=== PATIENT | female | born 1945 | race Caucasian/White ===

== ENCOUNTER 2017-08-18 10:30 | Outpatient (RCR) | payer MEDICARE, OTHER, SELFPAY ==
--- NOTE | 2017-08-11 11:10 | PT.OIE ---
Current Diagnoses Other bursitis of knee, unspecified knee (08/10/17) Provider Visit Care Team Role Provider Type Santhosh Caraballo PA-C Attending Provider Advanced Practioner Clinician Specialty: Orthopedic Surgery Address: [address] [place] [address], [id number] Email: [email or web address] Physical Therapy Initial Evaluation PT-OP-A Visit Information Start: 08/11/17 10:45 Freq: Status: Active Protocol: Document 08/10/17 10:00 [facility] (Rec: 08/11/17 11:10 [facility] [email or web address]) Out-Patient Physical Therapy Visit Information Visit Information Visit Type Initial Evaluation Visit Start Time 10:00 Visit Stop Time 10:55 Total Visit Minutes 55 Visit Number 1 Number of AUTOMOTIVE MACHINIST APPRENTICE Visits 0 Evaluation Information Evaluation Date 08/10/17 PT-OP-B Current Condition Start: 08/11/17 10:45 Freq: Status: Active Protocol: Document 08/10/17 10:00 [facility] (Rec: 08/11/17 11:10 [facility] [email or web address]) Current Condition History of Current Condition Onset Date R knee pain began 1 week ago Current Complaints pain in the right knee limiting walking and worse with twisting activities History of Current Condition Nikki reports she went to get out of her car in [place] a week ago and when she stepped down her Right knee twisted and clicked. She has had pain and clicking since that time. Nikki also reports she feels as if she has no strength in her legs making it difficult to get up from a chair or out of a car. She has extreme difficulty climbing stairs or walking 2 blocks Prior Treatments and Tests Xrays and been taken and per patient report are negative Treatment Goals Patient/Caregiver Goals Nikki's goals include improving knee strength and calming down her pain so that she can travel to [place] August 24 Prior Functional Status Baseline Function- ADL's Independent Baseline Function- Mobility Independent Current Functional Impairments (Reported) Functional Limitations- Mobility/Gait impairments with gait greater than 2 blocks and unable to climb stairs or stand for over a hour PT-OP-F Manual Assessment Start: 08/11/17 10:45 Freq: Status: Active Protocol: Document 08/10/17 10:00 [facility] (Rec: 08/11/17 11:10 [facility] [email or web address]) Manual Assessments Soft Tissue Assessment Soft Tissue Mobility Assessment tenderness to palpation at the distal MCL attachment of the right knee. Pain is distal to the joint line Joint Mobility Assessment Joint Mobility Assessment Joint mobility is WFL PT-OP-K Range of Motion Start: 08/11/17 10:45 Freq: Status: Active Protocol: Document 08/10/17 10:00 [facility] (Rec: 08/11/17 11:10 [facility] PTCOW) Knee Goniometric Range of Motion Knee Measured in Degrees Right Knee ROM WFL Yes Patient Position Sitting Flexion Active (degrees) 125 Extension Active (degrees) 0 PT-OP-M Strength Start: 08/11/17 10:45 Freq: Status: Active Protocol: Document 08/10/17 10:00 [facility] (Rec: 08/11/17 11:10 [facility] PTCOW) Knee Strength Knee Manual Muscle Testing Left Flexion (S2) 4 Good Extension (L3) 4 Good Right Flexion (S2) 3 Fair Comments quad sets are difficult on the right side PT-OP-Q Treatments Start: 08/11/17 10:45 Freq: Status: Active Protocol: Document 08/10/17 10:00 [facility] (Rec: 08/11/17 11:10 [facility] PTCOW) Cardio Equipment Recumbent Elliptical ([employer]) Duration (Minutes) 5 Resistance level 1 Other pt tolerated well Therapeutic Exercises Supine Exercises 2 Supine Exercise Name supine calf and hamstring stretch with strap Side right Reps/Minutes hold 1-2 minutes and add ankle pumps 1 Supine Exercise Name quad sqeeze Side right Reps/Minutes hold 5 seconds 2 sets of 10 reps per day Manual Therapy Treatment Soft Tissue Mobilization 1 Mobilization Type Cross-Friction Intensity/Depth Moderate Body Position Supine Comments TFM to the distal MCL attachment PT-OP-R Modalities Start: 08/11/17 10:45 Freq: Status: Active Protocol: Document 08/10/17 10:00 [facility] (Rec: 08/11/17 11:10 [facility] PTCOW) Hot Pack/Cold Pack Treatment Cold Pack Patient Position Hooklying Patient Tolerance Good Ultrasound Therapy Treatment Right Medial Distal Knee Patient Position Supine Coupling Medium Ultrasound Gel Mode Setting Continuous Intensity Setting (w/cm2) 1.5 Patient Tolerance Good Comment Treatment Comment US at MCl attachment PT-OP-T Assessment and Plan Start: 08/11/17 10:45 Freq: Status: Active Protocol: Document 08/10/17 10:00 [facility] (Rec: 08/11/17 11:10 [facility] [email or web address]) Physical Therapy Assessment Rehab Potential Rehabilitation Potential Excellent Evaluation Complexity Number of Personal Factors/Comorbidities 0 Number of Body Systems Impaired 1-2 Clinical Presentation at Evaluation Stable Impairments Impairments Activity Tolerance Balance Functional Activities Functional Mobility Gait Pain Strength Goals Three Impairment Decreased strength of B LE and difficulty with sit-stand transfers Short Term Goal (STG) Nikki is educated in LE strengthening including functional strengthening to improve transfers and mobility and she is independent with a home exercise program STG Duration 3 weeks Two Impairment Tenderness to palpation at the distal MCL attachement Short Term Goal (STG) Decrease tenderness to palpation with TFM and ice/ heat STG Duration 3 weeks due to the patient leaving for [place] the end of July One Impairment knee pain at the medial joint line limiting walking and standing Short Term Goal (STG) With manual therapy, modalities and exercise Nikki notes decreased pain at the distal MCL and has an improved tolerance for walking STG Duration 3 weeks due to the patient leaving for [place] the end of July Assessment Summary Assessment Nikki presents to physical therapy today with symptoms of right sided MCL sprain following stepping out of her car and twisting her knee. Her pain is below the joint line and her ROM of the right knee is WNL. There is swelling behind her knee. SHe has a generalized weakness in both knees but the right side is affected more with pain. Nikki is leaving for [place] August 24 and her goal is to be able to walk there. I started her today with Ultrasound, TFM, ice, quad sets and hamstring/calf stretch and bike. She tolerated this treatment well. Physical Therapy Plan Frequency and Duration Frequency of Treatment 2x/Week Duration of Treatment 4 weeks Plan of Care Start Date 08/10/17 Plan of Care End Date 09/07/17 Therapeutic Interventions Therapeutic Interventions Home Exercise Program Manual Therapy Neuromuscular Re-education Self-Care/Home Management Soft Tissue Mobilization Taping Therapeutic Exercises Modalities Cold Pack/Ice Massage Traction- Mechanical Provider Signature Date
--- NOTE | 2017-08-16 08:58 | PT.OTN ---
Current Diagnoses Other bursitis of knee, unspecified knee (08/15/17) Physical Therapy Treatment Note PT-OP-A Visit Information Start: 08/11/17 10:45 Freq: Status: Active Protocol: Document 08/15/17 10:48 LRN (Rec: 08/15/17 16:47 LRN [id number]) Out-Patient Physical Therapy Visit Information Visit Information Visit Type Treatment Note Visit Start Time 10:48 Visit Stop Time 11:25 Total Visit Minutes 37 Visit Number 2 Number of DIAL EQUIPMENT ENGINEER Visits 0 Evaluation Information Evaluation Date 08/10/17 PT-OP-B Current Condition Start: 08/11/17 10:45 Freq: Status: Active Protocol: Document 08/10/17 10:00 [facility] (Rec: 08/11/17 11:10 [facility] [email or web address]) Current Condition History of Current Condition Onset Date R knee pain began 1 week ago Current Complaints pain in the right knee limiting walking and worse with twisting activities History of Current Condition Nikki reports she went to get out of her car in [place] a week ago and when she stepped down her Right knee twisted and clicked. She has had pain and clicking since that time. Nikki also reports she feels as if she has no strength in her legs making it difficult to get up from a chair or out of a car. She has extreme difficulty climbing stairs or walking 2 blocks Prior Treatments and Tests Xrays and been taken and per patient report are negative Treatment Goals Patient/Caregiver Goals Nikki's goals include improving knee strength and calming down her pain so that she can travel to [place] August 24 Prior Functional Status Baseline Function- ADL's Independent Baseline Function- Mobility Independent Current Functional Impairments (Reported) Functional Limitations- Mobility/Gait impairments with gait greater than 2 blocks and unable to climb stairs or stand for over a hour PT-OP-C Subjective Start: 08/11/17 10:45 Freq: Status: Active Protocol: Document 08/15/17 10:48 LRN (Rec: 08/15/17 11:24 LRN [id number]) OP-PT Subjective Patient Comments Patient Comments States she has been icing behind the knee and heating on the medial side of the knee and thinks the knee is a little better. PT-OP-F Manual Assessment Start: 08/11/17 10:45 Freq: Status: Active Protocol: Document 08/10/17 10:00 [facility] (Rec: 08/11/17 11:10 [facility] [email or web address]) Manual Assessments Soft Tissue Assessment Soft Tissue Mobility Assessment tenderness to palpation at the distal MCL attachment of the right knee. Pain is distal to the joint line Joint Mobility Assessment Joint Mobility Assessment Joint mobility is WFL PT-OP-K Range of Motion Start: 08/11/17 10:45 Freq: Status: Active Protocol: Document 08/10/17 10:00 AM[facility] (Rec: 08/11/17 11:10 [facility] [email or web address]) Knee Goniometric Range of Motion Knee Measured in Degrees Right Knee ROM WFL Yes Patient Position Sitting Flexion Active (degrees) 125 Extension Active (degrees) 0 PT-OP-M Strength Start: 08/11/17 10:45 Freq: Status: Active Protocol: Document 08/10/17 10:00 AM[facility] (Rec: 08/11/17 11:10 [facility] PTCOW) Knee Strength Knee Manual Muscle Testing Left Flexion (S2) 4 Good Extension (L3) 4 Good Right Flexion (S2) 3 Fair Comments quad sets are difficult on the right side PT-OP-Q Treatments Start: 08/11/17 10:45 Freq: Status: Active Protocol: Document 08/15/17 10:48 LRN (Rec: 08/15/17 11:24 LRN [id number]) Cardio Equipment Recumbent Elliptical ([employer]) Duration (Minutes) 8 Resistance level 1 Other pt tolerated well Therapeutic Exercises Supine Exercises 3 Supine Exercise Name SLR Side right Reps/Minutes 15x 1 Supine Exercise Name quad sqeeze Side right Reps/Minutes hold 5 seconds 15x, & 1 sets of 10 reps Sidelying Exercises 1 Sidelying Exercise Name R leg lift Reps/Minutes 10 Standing Exercises 2 Standing Exercise Name Soleus stretch Reps/Minutes 1x60 sec Comments Extra time needed for proper positioing 1 Standing Exercise Name Gastroc stretch Reps/Minutes 1x 60 sec stretch Comments Pt required extra time for proper positioning for stretch Manual Therapy Treatment Soft Tissue Mobilization 1 Mobilization Type Cross-Friction Intensity/Depth Moderate Body Position Supine Comments TFM to the distal MCL attachment PT-OP-R Modalities Start: 08/11/17 10:45 Freq: Status: Active Protocol: Document 08/15/17 10:48 LRN (Rec: 08/15/17 11:24 LRN [id number]) Hot Pack/Cold Pack Treatment Cold Pack Patient Position Hooklying Patient Tolerance Good Ultrasound Therapy Treatment Right Medial Distal Knee Patient Position Supine Coupling Medium Ultrasound Gel Mode Setting Continuous Intensity Setting (w/cm2) 1.0 Patient Tolerance Good PT-OP-T Assessment and Plan Start: 08/11/17 10:45 Freq: Status: Active Protocol: Document 08/15/17 10:48 LRN (Rec: 08/15/17 11:24 LRN [id number]) Physical Therapy Assessment Impairments Impairments Activity Tolerance Balance Functional Activities Functional Mobility Gait Pain Strength Assessment Summary Assessment Pt complains of clicking in the knee; possible mensicus injury. Good tolerance to treatment. Physical Therapy Plan Frequency and Duration Frequency of Treatment 2x/Week Next Visit Focus/Plan Next Visit Plan Continue per plan of care. Please Sign and Return: I have reviewed this Plan of Care and certify that the skilled therapy services above are required to meet the patient???s needs. Physician Signature Date Printed Name and Credentials Clinical Instructor Signature Printed Name and Credentials
--- NOTE | 2017-08-16 12:45 | PT.OTN ---
Addendum entered and electronically signed by Kesha Santillan, PT 08/16/17 15:26: Pt seen 08/15/17, note completed 08/16/17. Original Note: Current Diagnoses Other bursitis of knee, unspecified knee (08/15/17) Physical Therapy Treatment Note PT-OP-A Visit Information Start: 08/11/17 10:45 Freq: Status: Active Protocol: Document 08/15/17 10:48 LRN (Rec: 08/15/17 16:47 LRN [id number]) Out-Patient Physical Therapy Visit Information Visit Information Visit Type Treatment Note Visit Start Time 10:48 Visit Stop Time 11:25 Total Visit Minutes 37 Visit Number 2 Number of BARROW WORKER HELPER Visits 0 Evaluation Information Evaluation Date 08/10/17 PT-OP-B Current Condition Start: 08/11/17 10:45 Freq: Status: Active Protocol: Document 08/10/17 10:00 [facility] (Rec: 08/11/17 11:10 [facility] [email or web address]) Current Condition History of Current Condition Onset Date R knee pain began 1 week ago Current Complaints pain in the right knee limiting walking and worse with twisting activities History of Current Condition Nikki reports she went to get out of her car in [place] a week ago and when she stepped down her Right knee twisted and clicked. She has had pain and clicking since that time. Nikki also reports she feels as if she has no strength in her legs making it difficult to get up from a chair or out of a car. She has extreme difficulty climbing stairs or walking 2 blocks Prior Treatments and Tests Xrays and been taken and per patient report are negative Treatment Goals Patient/Caregiver Goals Nikki's goals include improving knee strength and calming down her pain so that she can travel to [place] August 24 Prior Functional Status Baseline Function- ADL's Independent Baseline Function- Mobility Independent Current Functional Impairments (Reported) Functional Limitations- Mobility/Gait impairments with gait greater than 2 blocks and unable to climb stairs or stand for over a hour PT-OP-C Subjective Start: 08/11/17 10:45 Freq: Status: Active Protocol: Document 08/15/17 10:48 LRN (Rec: 08/15/17 11:24 LRN [id number]) OP-PT Subjective Patient Comments Patient Comments States she has been icing behind the knee and heating on the medial side of the knee and thinks the knee is a little better. PT-OP-F Manual Assessment Start: 08/11/17 10:45 Freq: Status: Active Protocol: Document 08/10/17 10:00 [facility] (Rec: 08/11/17 11:10 [facility] [email or web address]) Manual Assessments Soft Tissue Assessment Soft Tissue Mobility Assessment tenderness to palpation at the distal MCL attachment of the right knee. Pain is distal to the joint line Joint Mobility Assessment Joint Mobility Assessment Joint mobility is WFL PT-OP-K Range of Motion Start: 08/11/17 10:45 Freq: Status: Active Protocol: Document 08/10/17 10:00 AMH (Rec: 08/11/17 11:10 [facility] [email or web address]) Knee Goniometric Range of Motion Knee Measured in Degrees Right Knee ROM WFL Yes Patient Position Sitting Flexion Active (degrees) 125 Extension Active (degrees) 0 PT-OP-M Strength Start: 08/11/17 10:45 Freq: Status: Active Protocol: Document 08/10/17 10:00 AMH (Rec: 08/11/17 11:10 [facility] [email or web address]) Knee Strength Knee Manual Muscle Testing Left Flexion (S2) 4 Good Extension (L3) 4 Good Right Flexion (S2) 3 Fair Comments quad sets are difficult on the right side PT-OP-Q Treatments Start: 08/11/17 10:45 Freq: Status: Active Protocol: Document 08/15/17 10:48 LRN (Rec: 08/15/17 11:24 LRN [id number]) Cardio Equipment Recumbent Elliptical ([employer]) Duration (Minutes) 8 Resistance level 1 Other pt tolerated well Therapeutic Exercises Supine Exercises 3 Supine Exercise Name SLR Side right Reps/Minutes 15x 1 Supine Exercise Name quad sqeeze Side right Reps/Minutes hold 5 seconds 15x, & 1 sets of 10 reps Sidelying Exercises 1 Sidelying Exercise Name R leg lift Reps/Minutes 10 Standing Exercises 2 Standing Exercise Name Soleus stretch Reps/Minutes 1x60 sec Comments Extra time needed for proper positioning 1 Standing Exercise Name Gastroc stretch Reps/Minutes 1x 60 sec stretch Comments Pt required extra time for proper positioning for stretch Manual Therapy Treatment Soft Tissue Mobilization 1 Mobilization Type Cross-Friction Intensity/Depth Moderate Body Position Supine Comments TFM to the distal MCL attachment PT-OP-R Modalities Start: 08/11/17 10:45 Freq: Status: Active Protocol: Document 08/15/17 10:48 LRN (Rec: 08/15/17 11:24 LRN [id number]) Hot Pack/Cold Pack Treatment Cold Pack Patient Position Hooklying Patient Tolerance Good Ultrasound Therapy Treatment Right Medial Distal Knee Patient Position Supine Coupling Medium Ultrasound Gel Mode Setting Continuous Intensity Setting (w/cm2) 1.0 Patient Tolerance Good PT-OP-T Assessment and Plan Start: 08/11/17 10:45 Freq: Status: Active Protocol: Document 08/15/17 10:48 LRN (Rec: 08/15/17 11:24 LRN [id number]) Physical Therapy Assessment Impairments Impairments Activity Tolerance Balance Functional Activities Functional Mobility Gait Pain Strength Assessment Summary Assessment Pt complains of clicking in the knee; possible meniscus injury. Good tolerance to treatment. Physical Therapy Plan Frequency and Duration Frequency of Treatment 2x/Week Duration of Treatment 4 weeks Plan of Care Start Date 08/10/17 Plan of Care End Date 09/07/17 Therapeutic Interventions Therapeutic Interventions Home Exercise Program Manual Therapy Neuromuscular Re-education Self-Care/Home Management Soft Tissue Mobilization Taping Therapeutic Exercises Modalities Cold Pack/Ice Massage Traction- Mechanical Next Visit Focus/Plan Next Visit Plan Continue per plan of care. Please Sign and Return: I have reviewed this Plan of Care and certify that the skilled therapy services above are required to meet the patient???s needs. Physician Signature Date Printed Name and Credentials Clinical Instructor Signature Printed Name and Credentials
--- NOTE | 2017-08-16 15:25 | PT.OTN ---
Current Diagnoses Other bursitis of knee, unspecified knee (08/15/17) Physical Therapy Treatment Note PT-OP-A Visit Information Start: 08/11/17 10:45 Freq: Status: Active Protocol: Document 08/15/17 10:48 LRN (Rec: 08/15/17 16:47 LRN [id number]) Out-Patient Physical Therapy Visit Information Visit Information Visit Type Treatment Note Visit Start Time 10:48 Visit Stop Time 11:25 Total Visit Minutes 37 Visit Number 2 Number of NURSE SCHOOL Visits 0 Evaluation Information Evaluation Date 08/10/17 PT-OP-B Current Condition Start: 08/11/17 10:45 Freq: Status: Active Protocol: Document 08/10/17 10:00 AMH (Rec: 08/11/17 11:10 [facility] [email or web address]) Current Condition History of Current Condition Onset Date R knee pain began 1 week ago Current Complaints pain in the right knee limiting walking and worse with twisting activities History of Current Condition Nikki reports she went to get out of her car in [place] a week ago and when she stepped down her Right knee twisted and clicked. She has had pain and clicking since that time. Nikki also reports she feels as if she has no strength in her legs making it difficult to get up from a chair or out of a car. She has extreme difficulty climbing stairs or walking 2 blocks Prior Treatments and Tests Xrays and been taken and per patient report are negative Treatment Goals Patient/Caregiver Goals Nikki's goals include improving knee strength and calming down her pain so that she can travel to [place] August 24 Prior Functional Status Baseline Function- ADL's Independent Baseline Function- Mobility Independent Current Functional Impairments (Reported) Functional Limitations- Mobility/Gait impairments with gait greater than 2 blocks and unable to climb stairs or stand for over a hour PT-OP-C Subjective Start: 08/11/17 10:45 Freq: Status: Active Protocol: Document 08/15/17 10:48 LRN (Rec: 08/15/17 11:24 LRN [id number]) OP-PT Subjective Patient Comments Patient Comments States she has been icing behind the knee and heating on the medial side of the knee and thinks the knee is a little better. PT-OP-F Manual Assessment Start: 08/11/17 10:45 Freq: Status: Active Protocol: Document 08/10/17 10:00 [facility]H (Rec: 08/11/17 11:10 [facility] [email or web address]) Manual Assessments Soft Tissue Assessment Soft Tissue Mobility Assessment tenderness to palpation at the distal MCL attachment of the right knee. Pain is distal to the joint line Joint Mobility Assessment Joint Mobility Assessment Joint mobility is WFL PT-OP-K Range of Motion Start: 08/11/17 10:45 Freq: Status: Active Protocol: Document 08/10/17 10:00 AMH (Rec: 08/11/17 11:10 [facility] [email or web address]) Knee Goniometric Range of Motion Knee Measured in Degrees Right Knee ROM WFL Yes Patient Position Sitting Flexion Active (degrees) 125 Extension Active (degrees) 0 PT-OP-M Strength Start: 08/11/17 10:45 Freq: Status: Active Protocol: Document 08/10/17 10:00 AMH (Rec: 08/11/17 11:10 [facility] [email or web address]) Knee Strength Knee Manual Muscle Testing Left Flexion (S2) 4 Good Extension (L3) 4 Good Right Flexion (S2) 3 Fair Comments quad sets are difficult on the right side PT-OP-Q Treatments Start: 08/11/17 10:45 Freq: Status: Active Protocol: Document 08/15/17 10:48 LRN (Rec: 08/15/17 11:24 LRN [id number]) Cardio Equipment Recumbent Elliptical ([employer]) Duration (Minutes) 8 Resistance level 1 Other pt tolerated well Therapeutic Exercises Supine Exercises 3 Supine Exercise Name SLR Side right Reps/Minutes 15x 1 Supine Exercise Name quad sqeeze Side right Reps/Minutes hold 5 seconds 15x, & 1 sets of 10 reps Sidelying Exercises 1 Sidelying Exercise Name R leg lift Reps/Minutes 10 Standing Exercises 2 Standing Exercise Name Soleus stretch Reps/Minutes 1x60 sec Comments Extra time needed for proper positioing 1 Standing Exercise Name Gastroc stretch Reps/Minutes 1x 60 sec stretch Comments Pt required extra time for proper positioning for stretch Manual Therapy Treatment Soft Tissue Mobilization 1 Mobilization Type Cross-Friction Intensity/Depth Moderate Body Position Supine Comments TFM to the distal MCL attachment PT-OP-R Modalities Start: 08/11/17 10:45 Freq: Status: Active Protocol: Document 08/15/17 10:48 LRN (Rec: 08/15/17 11:24 LRN [id number]) Hot Pack/Cold Pack Treatment Cold Pack Patient Position Hooklying Patient Tolerance Good Ultrasound Therapy Treatment Right Medial Distal Knee Patient Position Supine Coupling Medium Ultrasound Gel Mode Setting Continuous Intensity Setting (w/cm2) 1.0 Patient Tolerance Good PT-OP-T Assessment and Plan Start: 08/11/17 10:45 Freq: Status: Active Protocol: Document 08/15/17 10:48 LRN (Rec: 08/15/17 11:24 LRN [id number]) Physical Therapy Assessment Impairments Impairments Activity Tolerance Balance Functional Activities Functional Mobility Gait Pain Strength Assessment Summary Assessment Pt complains of clicking in the knee; possible mensicus injury. Good tolerance to treatment. Physical Therapy Plan Frequency and Duration Frequency of Treatment 2x/Week Duration of Treatment 4 weeks Plan of Care Start Date 08/10/17 Plan of Care End Date 09/07/17 Therapeutic Interventions Therapeutic Interventions Home Exercise Program Manual Therapy Neuromuscular Re-education Self-Care/Home Management Soft Tissue Mobilization Taping Therapeutic Exercises Modalities Cold Pack/Ice Massage Traction- Mechanical Next Visit Focus/Plan Next Visit Plan Continue per plan of care for MCL strain.
--- NOTE | 2017-08-18 12:02 | PT.OTN ---
Current Diagnoses Other bursitis of knee, unspecified knee (08/18/17) Physical Therapy Treatment Note PT-OP-A Visit Information Start: 08/11/17 10:45 Freq: Status: Active Protocol: Document 08/15/17 10:48 LRN (Rec: 08/15/17 16:47 LRN [id number]) Out-Patient Physical Therapy Visit Information Visit Information Visit Type Treatment Note Visit Start Time 10:48 Visit Stop Time 11:25 Total Visit Minutes 37 Visit Number 2 Number of LEAD C DEVELOPER Visits 0 Evaluation Information Evaluation Date 08/10/17 PT-OP-B Current Condition Start: 08/11/17 10:45 Freq: Status: Active Protocol: Document 08/10/17 10:00 [facility] (Rec: 08/11/17 11:10 [facility] [email or web address]) Current Condition History of Current Condition Onset Date R knee pain began 1 week ago Current Complaints pain in the right knee limiting walking and worse with twisting activities History of Current Condition Nikki reports she went to get out of her car in [place] a week ago and when she stepped down her Right knee twisted and clicked. She has had pain and clicking since that time. Nikki also reports she feels as if she has no strength in her legs making it difficult to get up from a chair or out of a car. She has extreme difficulty climbing stairs or walking 2 blocks Prior Treatments and Tests Xrays and been taken and per patient report are negative Treatment Goals Patient/Caregiver Goals Nikki's goals include improving knee strength and calming down her pain so that she can travel to [place] August 24 Prior Functional Status Baseline Function- ADL's Independent Baseline Function- Mobility Independent Current Functional Impairments (Reported) Functional Limitations- Mobility/Gait impairments with gait greater than 2 blocks and unable to climb stairs or stand for over a hour PT-OP-C Subjective Start: 08/11/17 10:45 Freq: Status: Active Protocol: Document 08/18/17 10:30 [facility] (Rec: 08/18/17 12:02 [facility] [email or web address]) OP-PT Subjective Patient Comments Patient Comments Nikki feels her knee is a little better. She notes pain with any twisting PT-OP-F Manual Assessment Start: 08/11/17 10:45 Freq: Status: Active Protocol: Document 08/10/17 10:00 [facility] (Rec: 08/11/17 11:10 [facility] [email or web address]) Manual Assessments Soft Tissue Assessment Soft Tissue Mobility Assessment tenderness to palpation at the distal MCL attachment of the right knee. Pain is distal to the joint line Joint Mobility Assessment Joint Mobility Assessment Joint mobility is WFL PT-OP-K Range of Motion Start: 08/11/17 10:45 Freq: Status: Active Protocol: Document 08/10/17 10:00 [facility] (Rec: 08/11/17 11:10 [facility] [email or web address]) Knee Goniometric Range of Motion Knee Measured in Degrees Right Knee ROM WFL Yes Patient Position Sitting Flexion Active (degrees) 125 Extension Active (degrees) 0 PT-OP-M Strength Start: 08/11/17 10:45 Freq: Status: Active Protocol: Document 08/10/17 10:00 [facility] (Rec: 08/11/17 11:10 [facility] [email or web address]) Knee Strength Knee Manual Muscle Testing Left Flexion (S2) 4 Good Extension (L3) 4 Good Right Flexion (S2) 3 Fair Comments quad sets are difficult on the right side PT-OP-Q Treatments Start: 08/11/17 10:45 Freq: Status: Active Protocol: Document 08/18/17 10:30 [facility] (Rec: 08/18/17 12:02 [facility] [email or web address]) Cardio Equipment Recumbent Elliptical (BiodABL [place]) Duration (Minutes) 8 Resistance level 2 Other pt tolerated well Therapeutic Exercises Supine Exercises 3 Supine Exercise Name SLR Side right Reps/Minutes 15x 2 Supine Exercise Name supine calf and hamstring stretch with strap Side right Reps/Minutes hold 1-2 minutes and add ankle pumps 1 Supine Exercise Name quad sqeeze Side right Reps/Minutes hold 5 seconds 15x, & 1 sets of 10 reps Sidelying Exercises 1 Sidelying Exercise Name R leg lift Reps/Minutes 10 Standing Exercises 2 Standing Exercise Name Soleus stretch Reps/Minutes 1x60 sec Comments Extra time needed for proper positioing 1 Standing Exercise Name Gastroc stretch Reps/Minutes 1x 60 sec stretch Comments Pt required extra time for proper positioning for stretch Manual Therapy Treatment Soft Tissue Mobilization 1 Mobilization Type Cross-Friction Intensity/Depth Moderate Body Position Supine Comments TFM to the distal MCL attachment PT-OP-R Modalities Start: 08/11/17 10:45 Freq: Status: Active Protocol: Document 08/18/17 10:30 [facility] (Rec: 08/18/17 12:02 [facility] [email or web address]) Ultrasound Therapy Treatment Right Medial Distal Knee Patient Position Supine Coupling Medium Ultrasound Gel Mode Setting Continuous Intensity Setting (w/cm2) 1.0 Patient Tolerance Good PT-OP-T Assessment and Plan Start: 08/11/17 10:45 Freq: Status: Active Protocol: Document 08/18/17 10:30 [facility] (Rec: 08/18/17 12:02 [facility] [email or web address] Physical Therapy Assessment Assessment Summary Assessment good tolerance to tx, tenderness at the distal MCL Physical Therapy Plan Frequency and Duration Frequency of Treatment 2x/Week Duration of Treatment 4 weeks Plan of Care Start Date 08/10/17 Plan of Care End Date 09/07/17 Next Visit Focus/Plan Next Visit Plan the patient will only been seen one more time befor she goes to travel for a month Please Sign and Return: I have reviewed this Plan of Care and certify that the skilled therapy services above are required to meet the patient???s needs. Physician Signature Date Printed Name and Credentials Clinical Instructor Signature Printed Name and Credentials
--- NOTE | 2017-10-11 18:09 | PT.OPDS ---
Current Diagnoses Other bursitis of knee, unspecified knee (08/18/17) Provider Visit Care Team Role Provider Type Santhosh Caraballo PA-C Attending Provider Advanced Fleet Sales Manager Specialty: Orthopedic Surgery Address: [address] [place] [address], [place], [address] Email: [email or web address] Visit Number Visit Number 2 Discharge Summary PT-OP-B Current Condition Start: 08/11/17 10:45 Freq: Status: Active Protocol: Document 08/10/17 10:00 [facility] (Rec: 08/11/17 11:10 [facility] [email or web address]) Current Condition History of Current Condition Onset Date R knee pain began 1 week ago Current Complaints pain in the right knee limiting walking and worse with twisting activities History of Current Condition Nikki reports she went to get out of her car in [place] a week ago and when she stepped down her Right knee twisted and clicked. She has had pain and clicking since that time. Nikki also reports she feels as if she has no strength in her legs making it difficult to get up from a chair or out of a car. She has extreme difficulty climbing stairs or walking 2 blocks Prior Treatments and Tests Xrays and been taken and per patient report are negative Treatment Goals Patient/Caregiver Goals Nikki's goals include improving knee strength and calming down her pain so that she can travel to [place] August 24 Prior Functional Status Baseline Function- ADL's Independent Baseline Function- Mobility Independent Current Functional Impairments (Reported) Functional Limitations- Mobility/Gait impairments with gait greater than 2 blocks and unable to climb stairs or stand for over a hour PT-OP-C Subjective Start: 08/11/17 10:45 Freq: Status: Active Protocol: Document 08/18/17 10:30 [facility] (Rec: 08/18/17 12:02 [facility] [email or web address]) OP-PT Subjective Patient Comments Patient Comments Nikki feels her knee is a little better. She notes pain with any twisting PT-OP-F Manual Assessment Start: 08/11/17 10:45 Freq: Status: Active Protocol: Document 08/10/17 10:00 [facility] (Rec: 08/11/17 11:10 [facility] [email or web address]) Manual Assessments Soft Tissue Assessment Soft Tissue Mobility Assessment tenderness to palpation at the distal MCL attachment of the right knee. Pain is distal to the joint line Joint Mobility Assessment Joint Mobility Assessment Joint mobility is WFL PT-OP-K Range of Motion Start: 08/11/17 10:45 Freq: Status: Active Protocol: Document 08/10/17 10:00 AM[facility] (Rec: 08/11/17 11:10 AM[facility] [email or web address]) Knee Goniometric Range of Motion Knee Measured in Degrees Right Knee ROM WFL Yes Patient Position Sitting Flexion Active (degrees) 125 Extension Active (degrees) 0 PT-OP-M Strength Start: 08/11/17 10:45 Freq: Status: Active Protocol: Document 08/10/17 10:00 [facility] (Rec: 08/11/17 11:10 AM[facility] [email or web address]) Knee Strength Knee Manual Muscle Testing Left Flexion (S2) 4 Good Extension (L3) 4 Good Right Flexion (S2) 3 Fair Comments quad sets are difficult on the right side PT-OP-T Assessment and Plan Start: 08/11/17 10:45 Freq: Status: Active Protocol: Document 08/18/17 10:30 [facility] (Rec: 08/18/17 12:02 [facility] [email or web address]) Physical Therapy Assessment Assessment Summary Assessment good tolerance to tx, tenderness at the distal MCL Physical Therapy Plan Frequency and Duration Frequency of Treatment 2x/Week Duration of Treatment 4 weeks Plan of Care Start Date 08/10/17 Plan of Care End Date 09/07/17 Next Visit Focus/Plan Next Visit Plan the patient will only been seen one more time befor she goes to travel for a month
== END 2017-08-19 10:52 ==
LOC: PHYS 10:30
PROVIDERS: Visit Provider Physician Assistant
DX: M70.50 Other bursitis of knee, unspecified knee (principal)
CPT/HCPCS: 97035; 97110; 97140; 97161

== ENCOUNTER 2017-08-19 03:25 | Emergency (ER) | payer MEDICARE, OTHER, SELFPAY ==
--- NOTE | 2017-08-19 03:36 | DI.RAD.S_ITS ---
PROCEDURE: XR WRIST RT MIN 3V INDICATIONS: fall deformity TECHNIQUE: 3 views of the wrist were acquired. COMPARISON: None. FINDINGS: Bones: There is a transverse fracture in the distal radial shaft with 4 mm radial displacement of the distal fracture fragment. Ulnar styloid fracture of indeterminate chronicity is noted. Severe osteopenia. There is moderate triscaphe and first carpometacarpal joint degeneration. No suspicious bony lesions. Scaphoid view: Scaphoid appears intact. Soft tissues: No suspicious soft tissue calcifications. IMPRESSION: 1. Mildly displaced distal radial shaft fracture. 2. Ulnar styloid fracture of indeterminate chronicity. 3. Severe osteopenia. Dictated by: Josr Persaud M.D. on 08/19/2017 at 8:44 Approved by: Josr Persaud M.D. on 08/19/2017 at 8:47
[2017-08-19 03:38] VITALS: BP 155/67; PULSE 76; RESP 20; TEMP 36.6; O2SAT 97; BMI 25.0
--- NOTE | 2017-08-19 03:44 | DI.RAD.S_ITS ---
PROCEDURE: XR ELBOW RT MIN 3V INDICATIONS: ulna fracture TECHNIQUE: 3 views of the elbow were acquired. COMPARISON: [facility], CR, XR WRIST RT MIN 3V, 08/19/2017, 3:41. FINDINGS: Bones: Subtle radial head fracture is noted. No suspicious bony lesions. Soft tissues: Small elbow joint effusion. No suspicious soft tissue calcifications. IMPRESSION: Radial head fracture with small elbow effusion. The result was discussed with Dr. Johnson in ER prior to dictation. Dictated by: Josr Persaud M.D. on 08/19/2017 at 8:47 Approved by: Josr Persaud M.D. on 08/19/2017 at 8:50
[2017-08-19] MEDS: TET,DIPH,PERTUSS(ACELL),VAC/PF 0.5 ML SYRINGE IM (04:23)
--- NOTE | 2017-08-19 04:24 | ED_ITS ---
HPI - Extremity Injury (Upper) General Chief Complaint: Extremity Injury, Upper Stated Complaint: GLF Time Seen by Provider: 08/19/17 03:28 Source: patient Mode of arrival: ambulatory Limitations: no limitations History of Present Illness HPI narrative: Patient is a 71-year-old female who presents with right arm pain. She was getting up to use the restroom tonight when she fell. Initially she was not able to move her fingers but now is able to. No numbness or tingling. complaint: injury to: right Onset (ago): minute(s) Other injuries: none Handedness: right Place: home Related Data Home Medications Medication Instructions Recorded Confirmed OMEPRAZOLE Q DAY #0 01/21/10 Vitamin E (Alpha-Tocopherol) Q7D #0 01/21/10 VIT#96/FERROUS FUM/FA 1 tab PO QDAY #0 08/26/12 ( Vitamin) Previous Rx's Medication Instructions Recorded tramadol 25 mg PO Q4-6H PRN #10 tab 08/19/17 Allergies Allergy/AdvReac Type Severity Reaction Status Date / Time Codeine AdvReac Mild Uncoded 08/19/17 03:44 INGREDIENT: NKA - NO KNOWN AdvReac Unknown Uncoded 08/19/17 03:43 ALLERGIES Review of Systems Review of Systems All systems reviewed & are unremarkable except as noted in HPI and below Constitutional Denies chills, Denies fever(s), Denies frequent falls, Denies lethargy and Denies weakness Cardiovascular Denies dyspnea and Denies dyspnea on exertion Respiratory Denies cough, Denies dyspnea, Denies dyspnea on exertion and Denies wheezing Musculoskeletal Reports as per HPI and Denies numbness Integumentary/Breasts Denies pruritus, Denies erythema, Denies rash and Denies wounds Neurologic Denies frequent falls, Denies numbness and Denies weakness Allergic/Immunologic Denies wheezing PFSH Medical History Small bowel obstruction (Acute) Surgical History History of appendectomy (Acute) History of cholecystectomy (Acute) Social History Smoking Status: Never smoker Exam Initial Vital Signs Initial Vital Signs: Vital Signs Temperature 98 F 08/19/17 03:38 Pulse Rate 76 08/19/17 03:38 Respiratory Rate 20 08/19/17 03:38 Blood Pressure 155/67 H 08/19/17 03:38 Pulse Oximetry 97 08/19/17 03:38 Resp Effort & Inspection: normal respiratory effort and able to speak in complete sentences Cardio Pulses: normal peripheral pulses Skin General: no rashes or lesions noted, No jaundice and No petechiae Neuro General: alert, awake and oriented x3 Extrem Right upper extremity: shoulder/upper arm Details: normal to inspection, elbow/ forearm Details: swelling Location: of the mid-shaft forearm and distal pulses intact and hand Details: normal to inspection and neurosensory exam normal Left upper extremity: normal to inspection Right lower extremity: normal to inspection Left lower extremity: normal to inspection Course Hospital Course: 1. Splint applied to right arm 2. Type of device applied; long-arm 3. Applied by applied by me 4. Examined post splint, with good alignment and neurovascular intact Orders Ordered: ED Orders 08/19/17 03:36 XR wrist RT min 3V Stat 08/19/17 03:44 XR elbow RT min 3V Stat Discontinued Medications Acetaminophen (Tylenol) 650 mg PO NOW ONE Stop: 08/19/17 04:26 Diphtheria/Tetanus/Acell Pertussis (Adacel) 0.5 ml IM .ONCE ONE Stop: 08/19/17 03:37 Last Admin: 08/19/17 04:23 Dose: 0.5 ml Tramadol HCl (Ultram 50mg Prepack) 1 bottle MISC SEEINSTR ONE Stop: 08/19/17 04:26 Consultations Consultation #1: Dr. Erickson aware of fracture. Recommends long-arm splint and follow up in office today to discuss options. Vital Signs - 8 hr 08/19/17 03:38 Temperature 98 F Pulse Rate 76 Respiratory Rate 20 Blood Pressure 155/67 H Pulse Oximetry 97 MDM - Extremity Injury (Upper) Imaging Data Right wrist x-ray: Attestation: I personally reviewed and interpreted this imaging study as follows: My impression: Radial fracture of the distal 1/3 shaft with displacement no other fracture appreciated Right elbow x-ray: Attestation: I personally reviewed and interpreted this imaging study as follows: My impression: No fracture no displaced MDM Narrative Medical decision making narrative: Patient is a leaving in 5 days to go to [place] for 1 month. Orthopedics has agreed to see her today to discuss options will likely require surgical fixation. Discharge Plan Departure Patient Disposition: Home, Self-Care Clinical Impression: Radial fracture Instructions: DI for Forearm Fracture Activity Restrictions/Additional Instructions: * called [facility] this morning around 8:[address] Erickson said she would fit shoe in today to discuss options. * keep arm in a splint at all times * may ice through the splint * Tylenol 650 mg every 4-6 hours if needed for [id number]-[id number] pain * tramadol half tablet to 1 full tablet every 6 hr for severe pain, this does cause drowsiness, and constipation * Colace 100 mg daily well on tramadol -return to ER if you should have any worsening pain or numbness Prescriptions: New tramadol 50 mg tablet 25 mg PO Q4-6H PRN (Reason: pain) Qty: 10 RF: 0 No Action OMEPRAZOLE Q DAY Qty: 0 RF: 0 Vitamin E (Alpha-Tocopherol) Q7D Qty: 0 RF: 0 VIT#96/FERROUS FUM/FA ( Vitamin) 1 tab PO QDAY Qty: 0 RF: 0 Referrals: [facility] [Outside] Provider,Conversion [Non-Staff] - Johnna Erickson MD [Physician] -
[2017-08-19] MEDS: ACETAMINOPHEN 325 MG TABLET 650 MG PO (04:35)
[2017-08-19] MEDS: TRAMADOL 50 MG PREPACK 1 BOTTLE MISC (04:35)
== END 2017-08-19 04:40 | disposition home or self-care (01) ==
PROVIDERS: Emergency Provider Emergency Medicine
DX: S52.91XA Unspecified fracture of right forearm, initial encounter for closed fracture (principal); W19.XXXA Unspecified fall, initial encounter
CPT/HCPCS: 29105; 29240; 73080; 73110; 90471; 99282; 99283; 90715

== ENCOUNTER → 2017-10-07 10:33 | Outpatient (CLI) | payer MEDICARE, OTHER, SELFPAY ==
[2017-10-07 11:26] LABS: Add Manual Diff / Slide Review NO; Basophils Percent Auto 0.7 % (0-2); Eosinophils Percent Auto 2.8 % (2-4); Hematocrit 42.5 % (36-46); Hemoglobin 14.1 g/dL (12.0-16.0); Mean Corpuscular HGB Conc 33.1 % (30-36); Mean Corpuscular Hemoglobin 30.6 PG (26-34); Mean Corpuscular Volume 92.6 fL (80-100); Monocytes Percent Auto 7.8 % (3-14); Neutrophils Absolute Auto 3500 /uL (3000-5900); Neutrophils Percent Auto 60.7 % (50-75); Platelet Count 281 X10^3/uL (150-400); Red Cell Distribution Width 13.7 % (11.6-14.8); White Blood Cell Count 5.8 X10^3/uL (4.5-11.0)
== END ==
PROVIDERS: Visit Provider Orthopaedic Surgery
DX: R53.83 Other fatigue (principal)
CPT/HCPCS: 36415; 85025

== ENCOUNTER → 2017-11-03 11:50 | Outpatient (CLI) | payer MEDICARE, OTHER, SELFPAY ==
[2017-11-03 12:13] LABS: Appearance Urine UA CLEAR; Bilirubin Urine UA NEGATIVE (NEGATIVE); Color Urine UA YELLOW; Glucose Urine UA NEGATIVE (Normal); Ketones Urine UA TRACE (NEGATIVE); Leukocyte Esterase Urine UA 1+ (NEGATIVE); Nitrite Urine UA Negative (Negative); Occult Blood Urine UA 3+ (Negative); Protein Urine UA 1+ (Negative); Urobilinogen Urine UA 0.2 E.U./dL (0.2)
[2017-11-03 12:52] LABS: RBC Urine >100/HPF (0-5/HPF); WBC Urine 30-100/HPF (0-5/HPF)
[2017-11-03 12:53] LABS: Bacteria Urine Moderate (10-30); Culture Indicated Urine Specimen Cultured; Squamous Epithelial Cell Urine 1-5 /HPF
== END ==
PROVIDERS: Visit Provider Nurse Practitioner
DX: R39.15 Urgency of urination (principal); R31.9 Hematuria, unspecified
CPT/HCPCS: 36415; 81001; 87077; 87086; 87147

== ENCOUNTER → 2018-01-11 11:12 | Outpatient (CLI) | payer MEDICARE, OTHER, SELFPAY ==
--- NOTE | 2018-01-11 | DI.MG.S_ITS ---
BILATERAL DIGITAL SCREENING MAMMOGRAM 3D/2D WITH CAD: 01/11/2018 Comparison is made to exams dated: 01/04/2017 mammogram, 01/02/2016 mammogram, and 11/27/2014 mammogram - [facility]. The tissue of both breasts is heterogeneously dense. This may lower the sensitivity of mammography. Current study was also evaluated with a Computer Aided Detection (CAD) system. No significant masses, calcifications, or other findings are seen in either breast. There has been no significant interval change. IMPRESSION: NEGATIVE There is no mammographic evidence of malignancy. A 1 year screening mammogram is recommended. This exam was interpreted at Station ID: [id number]. NOTE: For mammograms, a report in lay terms will be sent to the patient. Approximately 15% of breast malignancies will not be visualized mammographically. In the management of a palpable breast mass, a negative mammogram must not discourage biopsy of a clinically suspicious lesion. Electronically Signed By: Erlin colmenares/nathaniel:01/11/2018 15:40:25 letter sent: Normal Exam ACR BI-RADS Category 1: Negative 3341F
== END ==
PROVIDERS: Visit Provider Internal Medicine Medical Oncology
DX: Z12.31 Encounter for screening mammogram for malignant neoplasm of breast (principal)
CPT/HCPCS: 77063; 77067

== ENCOUNTER 2018-01-19 12:24 | Day surgery (SDC) | payer MEDICARE, OTHER, SELFPAY ==
[2018-01-19 12:47] VITALS: BMI 63.7
[2018-01-19 12:56] VITALS: BP 142/81; PULSE 80; RESP 20; TEMP 35.8; O2SAT 97
[2018-01-19] MEDS: SODIUM CHLORIDE 0.9% 1,000 ML 200 ML IV (12:58)
--- NOTE | 2018-01-19 13:04 | SUR.PREOP ---
With recent surgery, IV statrted to left arm instead of usual right.
[2018-01-19 13:06] VITALS: BMI 63.7
--- NOTE | 2018-01-19 13:33 | SUR.OPER ---
GLASSES TO PACU WITH PATIENT
[2018-01-19] MEDS: fentaNYL 250 MCG/5 ML INJ IV (13:51)
[2018-01-19 13:52] VITALS: BP 151/76; PULSE 85; RESP 20; TEMP 37.6; O2SAT 99
[2018-01-19] MEDS: MIDAZOLAM 5 MG/5 ML VIAL IV (13:52)
[2018-01-19 13:57] VITALS: BP 151/76; PULSE 85; RESP 18; O2SAT 98
[2018-01-19 14:03] VITALS: BP 162/81; PULSE 87; RESP 18; TEMP 36.6; O2SAT 98
[2018-01-19 14:44] VITALS: BP 108/74; PULSE 69; RESP 16; TEMP 36.2; O2SAT 97
[2018-01-19 15:15] VITALS: BP 129/80; PULSE 73; RESP 15; TEMP 36.4; O2SAT 98
--- NOTE | 2018-01-19 15:53 | OP_ITS ---
DATE OF SERVICE: 01/19/2018 PREOP DIAGNOSIS: Screening colonoscopy. POSTOP DIAGNOSIS: Severe sigmoid diverticulosis, no diverticulitis. PROCEDURE: Total colonoscopy to the cecum. SURGEON: Erick Rodrigues MD DESCRIPTION OF PROCEDURE: The patient is properly identified during surgical pause. She was given conscious sedation consisting up fentanyl and Versed. I believe she had a total of 4 of Versed and 150 of fentanyl. The flexible fiberoptic colonoscope was inserted transanally to the cecum. There were no polyps, no tumors, no ulcers. Patient does have severe sigmoid diverticulosis, which made the endoscopy a bit more difficult than normal. She does not have diverticulitis. The scope was retrieved without difficulty and no polyps were seen. Nikki Hernandez - /juliana/ doc#: [id number]/job#: [id number] dd: 01/19/2018 13:53:00 dt: 01/19/2018 15:45:00 DICTATING MD/COPIES TO: Erick Rodrigues MD COPIES MNE: CHRISTOPHE
--- NOTE | 2018-01-26 11:08 | HP_ITS ---
DATE OF SERVICE: 01/18/2018 PREOPERATIVE HISTORY AND PHYSICAL HISTORY OF PRESENT ILLNESS: She's coming in for colonoscopy tomorrow, January 19, 2018. Patient is a 72-year-old female who had history of a small bowel carcinoid. Don't have the date on that, but it's been several years ago, and presented with a CT scan showing an obstructing lesion. She's had that resected, and she has not shown any evidence of metastatic carcinoid. Does not have carcinoid syndrome. She is coming in for a followup or screening colonoscopy on this occasion. She has no symptoms referable to colorectal disease. Denies melena. Denies hematochezia. There are no signs of ongoing bowel obstruction. She does have the above history with carcinoid, and she has a family history of esophageal cancer. PAST MEDICAL HISTORY: She denies diabetes, heart disease, or hypertension. MEDICATIONS: Takes calcium and vitamin D and some wgxy-roz-[id number] preparations, but no other significant medications. Has had a history of taking aspirin 325 mg daily. I'm not certain if she's been taking it recently, however. I don't have that data. ALLERGIES: SHE HAS AN ALLERGY TO CODEINE, WHICH ACTUALLY JUST CAUSES NAUSEA AND VOMITING, SO IT IS PROBABLY NOT AN ALLERGY. SOCIAL HISTORY: Denies drug abuse. Does not use tobacco products. Drinks several alcoholic beverages a week. REVIEW OF SYSTEMS: System review has negative review of systems other than that mentioned in HPI, where in her GI history she has a history of carcinoid which was resected. Otherwise, her neurologic is negative for strokes, TIAs, or seizures. CARDIOPULMONARY: Denies exertional chest pain or unusual shortness of breath. PHYSICAL EXAMINATION VITAL SIGNS: She is hypertensive. Blood pressure 160/85, heart rate in the 70s. HEENT: Ears, nose, and throat are normal. NECK: No adenopathy. CHEST: Lungs are clear. HEART: Regular rhythm. No murmur. No rub. ABDOMEN: Soft. No organomegaly. No tenderness. She has a well-healed abdominal wound with no sign of hernia. RECTAL: Exam will be done at the time of colonoscopy. DIAGNOSES: 1. Screening colonoscopy. 2. History of carcinoid of the small bowel. Nikki Hernandez - /juliana/gerhard doc#: [id number]/job#: [id number] dd: 01/18/2018 10:52:00 dt: 01/19/2018 04:36:00 DICTATING MD/COPIES TO: Erick Rodrigues MD COPIES MNE: CHRISTOPHE
== END 2018-01-19 15:23 | disposition home or self-care (01) ==
PROVIDERS: Family Provider Internal Medicine Medical Oncology; Visit Provider Surgery
PROC: 0DJD8ZZ Inspection of Lower Intestinal Tract, Via Natural or Artificial Opening Endoscopic (ICD-10-PCS; CPT 45378; principal; 2018-01-19 13:45)
DX: Z85.060 Personal history of malignant carcinoid tumor of small intestine (principal); K57.30 Diverticulosis of large intestine without perforation or abscess without bleeding
CPT/HCPCS: G0105; J2250; J3010

== ENCOUNTER → 2019-01-03 15:06 | Outpatient (CLI) | payer MEDICARE, OTHER, SELFPAY ==
--- NOTE | 2019-01-03 | DI.MG.S_ITS ---
BILATERAL DIGITAL SCREENING MAMMOGRAM 3D/2D WITH CAD: 01/03/2019 CLINICAL: Routine screening. Comparison is made to exams dated: 01/11/2018 mammogram - [facility], 01/04/2017 mammogram, and 01/02/2016 mammogram - [facility]. The tissue of both breasts is heterogeneously dense. This may lower the sensitivity of mammography. Current study was also evaluated with a Computer Aided Detection (CAD) system. There are benign post operative findings in the left breast. No significant masses, calcifications, or other findings are seen in either breast. There has been no significant interval change. IMPRESSION: There is no mammographic evidence of malignancy. A 1 year screening mammogram is recommended. This exam was interpreted at Station ID: [id number]. NOTE: For mammograms, a report in lay terms will be sent to the patient. Approximately 15% of breast malignancies will not be visualized mammographically. In the management of a palpable breast mass, a negative mammogram must not discourage biopsy of a clinically suspicious lesion. Electronically Signed By: Erlin colmenares/nathaniel:01/03/2019 17:01:43 letter sent: Normal Exam ACR BI-RADS Category 2: Benign Finding(s) 3342F
== END ==
PROVIDERS: Family Provider Internal Medicine Medical Oncology; PCP Internal Medicine; Visit Provider Internal Medicine
DX: Z12.31 Encounter for screening mammogram for malignant neoplasm of breast (principal)
CPT/HCPCS: 77063; 77067

== ENCOUNTER → 2019-07-23 11:02 | Outpatient (CLI) | payer MEDICARE, OTHER, SELFPAY | PROVIDERS: Family Provider Internal Medicine Medical Oncology; PCP Internal Medicine; Referring Provider Internal Medicine; Visit Provider Internal Medicine | DX: Z03.818 Encounter for observation for suspected exposure to other biological agents ruled out (principal) | CPT/HCPCS: 36415; 86769 ==

== ENCOUNTER → 2019-10-25 09:27 | Outpatient (CLI) | payer MEDICARE, OTHER, SELFPAY ==
--- NOTE | 2019-10-25 | DI.MRI.S_ITS ---
PROCEDURE: MR LUMBAR SPINE WO CON INDICATIONS: Low back pain TECHNIQUE: Noncontrast sagittal T1 spin echo and T2 fast echo, sagittal STIR, axial T1 and T2 fast spin echo through the lumbar spine. In cases with scoliosis, additional coronal T2 fast spin echo may be performed. COMPARISON: [facility], CR, L-SPINE 2-3 VIEWS, 12/17/2011, 12:25. [facility], MR, L-SPINE WITHOUT CONTRAST, 01/09/2013, 12:18. [facility], CT, ABDOMEN/PELVIS WITH CONTRAST, 08/26/2012, 6:19. FINDINGS: Image quality: This examination is limited by involuntary motion artifact. Alignment and Curvature: There is moderate levoconvex scoliosis. Minimal retrolisthesis is seen at the L4-5 level. Bone Marrow: Marrow is of normal overall signal. No acute vertebral body compression fractures. Spinal Cord: Conus medullaris terminates at the L1 level. Visualized cord demonstrates normal signal and size. Paraspinous Soft Tissues: No paravertebral masses. T12-L1: The disc height is well-preserved. Loss of disc signal is seen at this level. Mild disc bulge is seen, which is eccentric to the right. Mild to moderate facet hypertrophy is seen. There is moderate right-sided and no left-sided neural foraminal narrowing seen. No significant central canal narrowing is seen. When comparison is made with the prior examination, these findings are similar. L1-L2: The disc height is well-preserved. Loss of disc signal is seen at this level. Mild disc bulge is seen, which is eccentric to the right. Mild to moderate facet hypertrophy is seen. There is moderate right-sided and no significant left-sided neural foraminal narrowing seen at this level. No significant central canal narrowing is seen. When comparison is made with the prior examination, these findings are similar. L2-L3: Mild loss of disc height is seen. Loss of disc signal is seen. Bridging endplate osteophytes are seen. Moderate generalized disc bulge is seen. At least moderate facet hypertrophy is seen. Associated hypertrophy of the ligamentum flavum can be seen. Moderate bilateral neural foraminal narrowing is seen. Moderate central canal narrowing is seen. When comparison is made with the prior examination, these findings are similar. L3-L4: The disc height is well-preserved. Loss of disc signal is seen at this level. Moderate generalized disc bulge is seen. Moderate facet joint hypertrophy is seen. There is moderate right-sided and moderate to severe left-sided neural foraminal narrowing seen. There is a degree of compression seen upon the exiting left L3 nerve root. Moderate central canal narrowing is seen. Mild progression compared to 2013. L4-L5: The disc height is well-preserved. Loss of disc signal is seen at this level. Mild to moderate disc bulge is seen, which is eccentric to the left. Mild to moderate facet hypertrophy is seen. There is moderate right-sided and moderate to severe left-sided neural foraminal narrowing seen. There is a degree of compression seen upon the exiting left L4 nerve root. Mild central canal narrowing is seen. When comparison is made with the prior examination, these findings are similar. L5-S1: The disc height is well-preserved. Loss of disc signal is seen at this level. Minimal disc bulge is seen. There is moderate right-sided and moderate to severe left-sided neural foraminal narrowing seen. Minimal to mild bilateral neural foraminal narrowing is seen. No significant central canal narrowing is seen. When comparison is made with the prior examination, these findings are similar. IMPRESSION: Moderate levoconvex scoliosis and multiple levels of lumbar spine degenerative change are seen. Compared to 2013, the degenerative changes are similar, although slightly progressed at the L3-L4 level. Dictated by: Luan Mcmullen M.D. on 10/25/2019 at 10:17 Approved by: Luan Mcmullen M.D. on 10/25/2019 at 10:25
== END ==
PROVIDERS: Family Provider Internal Medicine Medical Oncology; PCP Internal Medicine; Referring Provider Internal Medicine; Visit Provider Internal Medicine
DX: M54.5 Low back pain (principal); M41.86 Other forms of scoliosis, lumbar region; M47.816 Spondylosis without myelopathy or radiculopathy, lumbar region
CPT/HCPCS: 72148

== ENCOUNTER → 2020-01-07 11:24 | Outpatient (CLI) | payer MEDICARE, OTHER, SELFPAY ==
--- NOTE | 2020-01-07 | DI.MG.S_ITS ---
BILATERAL DIGITAL SCREENING MAMMOGRAM 3D/2D WITH CAD: 01/07/2020 CLINICAL: Routine screening. Comparison is made to exams dated: 01/03/2019 mammogram, 01/11/2018 mammogram - [facility], 01/04/2017 mammogram, 01/02/2016 mammogram, and 11/27/2014 mammogram - [facility]. The tissue of both breasts is heterogeneously dense. This may lower the sensitivity of mammography. Current study was also evaluated with a Computer Aided Detection (CAD) system. There are benign post operative findings in the left breast. No significant masses, calcifications, or other findings are seen in either breast. There has been no significant interval change. IMPRESSION: BENIGN There is no mammographic evidence of malignancy. A 1 year screening mammogram is recommended. This exam was interpreted at Station ID: [id number]. NOTE: For mammograms, a report in lay terms will be sent to the patient. Approximately 15% of breast malignancies will not be visualized mammographically. In the management of a palpable breast mass, a negative mammogram must not discourage biopsy of a clinically suspicious lesion. Electronically Signed By: Zack sharma/nathaniel:01/07/2020 12:39:05 letter sent: Normal Exam ACR BI-RADS Category 2: Benign Finding(s) 3342F
== END ==
PROVIDERS: Family Provider Internal Medicine Medical Oncology; PCP Internal Medicine; Referring Provider Internal Medicine; Visit Provider Internal Medicine
DX: Z12.31 Encounter for screening mammogram for malignant neoplasm of breast (principal)
CPT/HCPCS: 77063; 77067

== ENCOUNTER → 2020-02-26 15:39 | Outpatient (CLI) | payer MEDICARE, OTHER, SELFPAY | PROVIDERS: Family Provider Internal Medicine Medical Oncology; PCP Internal Medicine; Visit Provider Specialist | DX: N39.0 Urinary tract infection, site not specified (principal); N39.46 Mixed incontinence; N95.2 Postmenopausal atrophic vaginitis; N90.4 Leukoplakia of vulva | CPT/HCPCS: 81002; 87086; 99214 ==

== ENCOUNTER → 2020-06-05 08:38 | Outpatient (CLI) | payer MEDICARE, OTHER, SELFPAY ==
[2020-06-05] MEDS: COVID-19 VACC, Ad26(JANSSEN)/PF 0.5 ML IM (08:46)
== END ==
PROVIDERS: Family Provider Internal Medicine Medical Oncology; PCP Internal Medicine; Visit Provider Internal Medicine
DX: Z23 Encounter for immunization (principal)
CPT/HCPCS: 0031A; 91303

== ENCOUNTER 2020-10-06 10:30 | Outpatient (RCR) | payer MEDICARE, OTHER, SELFPAY ==
--- NOTE | 2020-07-23 11:15 | PT.OIE ---
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 Mixed incontinence Osteoporosis Postmenopausal atrophic vaginitis Small bowel obstruction Urinary incontinence Past Surgical History (Last Reviewed 02/26/20 @ 17:13 by Liang Cruz MD) History of appendectomy History of cholecystectomy Visit Care Team Role Provider Type Baldev Colin MD Attending Provider Non-Staff Primary Care Provider Referring Provider Specialty: Internal Medicine Address: [address] [place] [address], #[facility], [place], [place], [facility] Email: Physical Therapy Initial Evaluation PT-OP-A Visit Information Start: 07/22/20 08:29 Freq: Status: Active Protocol: Document 07/23/20 09:01 MB (Rec: 07/23/20 09:12 MB [id number]) Out-Patient Physical Therapy Visit Information Visit Information Visit Type Initial Evaluation Visit Note Medicare Regence Visit Start Time 09:01 Visit Stop Time 09:37 Total Visit Minutes 36 Visit Number 1 Evaluation Information Evaluation Date 07/23/20 PT-OP-B Current Condition Start: 07/22/20 08:29 Freq: Status: Active Protocol: Document 07/23/20 09:01 MB (Rec: 07/23/20 09:12 MB [id number]) Current Condition History of Current Condition Onset Date 1 year leg weakness Current Complaints Leg weakness with sitting, trouble getting up, back discomfort History of Current Condition Pt reports that getting up off the toilet is difficult. She has trouble getting on and off the power boat. She has to use her hands to stand up d/t leg weakness. Pt has had PT in the past for her back but she did not con't with exercises. There is no reason for this, maybe just forgetting. She doesn't feel safe enough to bike outside and tries to walk but has weakness. Pt denies numbness and tingling in her legs. Pt reports 4-5/10 back across her LB. She reports sitting at her computer longer than 10 minutes is a problem. Pt reports that her last fall was two years ago. She broke her right forearm. She tripped over her 's shoes in the house. Prior Treatments and Tests PT in the past 10 years for back pain, MRI lumbar spine : moderate levoconvex scoliosis and multiple levels of lumbar spine degenerative change are seen Treatment Goals Patient/Caregiver Goals To increase leg strength and how to get off the floor if she falls, to relieve back pain PT-OP-C Subjective Start: 07/22/20 08:29 Freq: Status: Active Protocol: Document 07/23/20 09:01 MB (Rec: 07/23/20 09:12 MB [id number]) OP-PT Subjective Patient Comments Patient Comments See history of current condition Patient Questionnaires Oswestry Low Back Index Oswestry Score 18 Oswestry Impairment 20 to 39% Impaired (Score 20- 39) PT-OP-G Mobility & Gait Start: 07/22/20 08:29 Freq: Status: Active Protocol: Document 07/23/20 09:01 MB (Rec: 07/23/20 11:15 MB [id number]) OP Gait Assessment Gait Gait Assistance Required: Independent Distance (Feet) 50 Able to Maintain Weight Bearing Status Yes During Gait Assistive Devices Assistive Device None Orthotic/Prosthetic Devices or Brace: No Gait Deviations General Gait Pattern Flexed Trunk,Narrow Based Gait Factors Limiting Gait Function Factors Limiting Gait Function Limited Range of Motion,Poor Balance Comments Gait Comments Pt presents with narrow SABRINA, spinal changes as noted in postural assessment below, decreased arm swing with gait PT-OP-J Posture/Palpation/Skin Start: 07/22/20 08:29 Freq: Status: Active Protocol: Document 07/23/20 09:01 MB (Rec: 07/23/20 11:15 MB [id number]) Posture Evaluation Comments Posture Comments This date, pt is unable to stand up from the chair without UE support Standing posture with shoes on : Dowager's hump, anterior tilt pelvis, right iliac crest mildly higher than the left, right breast lower than the left and pt does report remote history of some soft tissue removed on left breast, spinal curvature changes thoracic spine with convexity on the right making scapular position more elevated right compared to left, narrow SABRINA and B great toe valgus, greater on the right. PT-OP-K Range of Motion Start: 07/22/20 08:29 Freq: Status: Active Protocol: Document 07/23/20 09:01 MB (Rec: 07/23/20 11:15 MB [id number]) Wrist Goniometric Range of Motion ROM Limitations Comments Right wrist bony changes and pt reports old fracture and surgery PT-OP-M Strength Start: 07/22/20 08:29 Freq: Status: Active Protocol: Document 07/23/20 09:01 MB (Rec: 07/23/20 11:15 MB [id number]) Hip Strength Hip Manual Muscle Testing Left Flexion (L2) 4 Good Abduction 4 Good Adduction 3+ Fair+ Right Flexion (L2) 4 Good Abduction 4 Good Adduction 4 Good Knee Strength Knee Manual Muscle Testing Left Flexion (S2) 4 Good Extension (L3) 4 Good Right Flexion (S2) 4 Good Extension (L3) 4 Good Ankle/Foot Strength Ankle and Foot Manual Muscle Testing Left Dorsiflexion (L4) 5 Normal Inversion 5 Normal Eversion (S1) 5 Normal Right Dorsiflexion (L4) 5 Normal Inversion 5 Normal Eversion (S1) 5 Normal Toe Strength Toe Manual Muscle Testing Left Great Toe Extension 5 Normal Right Great Toe Extension 5 Normal PT-OP-Q Treatments Start: 07/22/20 08:29 Freq: Status: Active Protocol: Document 07/23/20 09:01 MB (Rec: 07/23/20 10:59 MB [id number]) Self-Care/Home Management Treatment Education Patient Education Body Mechanics Other Education Log roll technique, purpose and practice, towel roll support at neck and pillow support (1) rather than 2 at home, pillow between legs in supine, pillow under legs in hook lying. PT plan to include pelvic realignment after noted pelvic obliquities today , flexibility, body mechanics education, benefits of massage therapy for musculoskeletal pain (and pt is very receptive to this), progression with PT to functional strengthening. Pt reports understanding of plan. PT-OP-T Assessment and Plan Start: 07/22/20 08:29 Freq: Status: Active Protocol: Document 07/23/20 09:01 MB (Rec: 07/23/20 11:09 MB [id number]) Physical Therapy Assessment Rehab Potential Rehabilitation Potential Fair Evaluation Complexity Number of Personal Factors/Comorbidities 1-2 Number of Body Systems Impaired 1-2 Clinical Presentation at Evaluation Evolving Impairments Impairments Activity Tolerance,Balance, Functional Activities, Functional Mobility,Gait,Pain, Posture,ROM,Soft Tissue Mobility,Strength Other Impairments Personal factors include not continuing PT exercises for her back that were provided in the past that she states were helpful. Body systems affected include musculoskeletal. Her clinical presentation is evolving in setting of progressive changes to her spine per MRI 2019 and 2012 and noticeable spinal degnerative changes on PT eval today. Other Concerns Fall Risk Yes Goals 4 Veterinary Virus Serum Inspector Goal (LTG) Pt will gait train at least 1200 feet without AD in 6 minutes to improve community ambulation by 09/22/20. LTG Duration 8 weeks Three Retirement Goal (LTG) Pt will be able to get off the floor with UE support and superv to allow safe floor transfers if needed at home by 09/22/20. LTG Duration 8 weeks Two Retirement Goal (LTG) Pt will perform 8 reps sit to stand without UE support in 30 sec to reflect improved functional strength by 09/22/20 . LTG Duration 8 weeks One Retirement Goal (LTG) Pt will perform progressive HEP with I including pelvic realignment, flexibility, breathing, core and LE strengthening and balance exercises to improve functional mobility by 09/22/20 . LTG Duration 8 weeks Assessment Summary Assessment Pt is a 74 y/o female presenting with degenerative spinal changes, back pain and LE weakness. Her biggest complaint is leg weakness and then back pain. She would like to be able to get up off the floor without assist and to be able to stand up from the toilet without UE assist. She will benefit from PT to address these goals. PT plan will include pelvic realignment after noted pelvic obliquities today, flexibility, body mechanics education and progressive strengthening. Barriers to PT include history of stopping previously helpful PT exercises for her back and degenerative spinal changes. Physical Therapy Plan Frequency and Duration Frequency of Treatment 2x/Week Duration of Treatment 8 weeks Plan of Care Start Date 07/23/20 Plan of Care End Date 09/22/20 Therapeutic Interventions Therapeutic Interventions Aquatic Therapy,Balance Training,Canalithic Repositioning,Gait Training, Home Exercise Program,Joint Mobilizations,Manual Therapy, Neuromuscular Re-education, Patient/Caregiver Education, Self-Care/Home Management,Soft Tissue Mobilization,Taping, Therapeutic Activities, Therapeutic Exercises Modalities Cold Pack/Ice Massage,Hot Packs Next Visit Focus/Plan Next Note Type Treatment Note Next Visit Plan Pelvic realignment exercises, lumbar rotation, hamstring and calf stretch with ankle pump and hands behind leg, abdominal drawing in for log rolling. Soon, add body mechanics education and re-try sit to stand with core engaged once she understands abdominal drawing in
--- NOTE | 2020-07-23 11:15 | PT.OPPOC ---
Physical, Occupational & Speech Therapy At [facility] Current Diagnoses Other idiopathic scoliosis, site unspecified (07/23/20) Spondylosis without myelopathy or radiculopathy, lumbosacral region (07/23/20) Other symptoms and signs involving the musculoskeletal system (07/23/20) Visit Care Team Role Provider Type Baldev Colin MD Attending Provider Non-Staff Primary Care Provider Referring Provider Specialty: Internal Medicine Address: [address] [place] [address], #[facility], [place], [place], [facility] Email: Plan Of Care PT-OP-T Assessment and Plan Start: 07/22/20 08:29 Freq: Status: Active Protocol: Document 07/23/20 09:01 MB (Rec: 07/23/20 11:09 MB [id number]) Physical Therapy Assessment Rehab Potential Rehabilitation Potential Fair Evaluation Complexity Number of Personal Factors/Comorbidities 1-2 Number of Body Systems Impaired 1-2 Clinical Presentation at Evaluation Evolving Impairments Impairments Activity Tolerance,Balance, Functional Activities, Functional Mobility,Gait,Pain, Posture,ROM,Soft Tissue Mobility,Strength Other Impairments Personal factors include not continuing PT exercises for her back that were provided in the past that she states were helpful. Body systems affected include musculoskeletal. Her clinical presentation is evolving in setting of progressive changes to her spine per MRI 2019 and 2012 and noticeable spinal degnerative changes on PT eval today. Other Concerns Fall Risk Yes Goals 4 Logistics Solution Manager Goal (LTG) Pt will gait train at least 1200 feet without AD in 6 minutes to improve community ambulation by 09/22/20. LTG Duration 8 weeks Three Logistics Solution Manager Goal (LTG) Pt will be able to get off the floor with UE support and superv to allow safe floor transfers if needed at home by 09/22/20. LTG Duration 8 weeks Two Custodial Goal (LTG) Pt will perform 8 reps sit to stand without UE support in 30 sec to reflect improved functional strength by 09/22/20 . LTG Duration 8 weeks One Custodial Goal (LTG) Pt will perform progressive HEP with I including pelvic realignment, flexibility, breathing, core and LE strengthening and balance exercises to improve functional mobility by 09/22/20 . LTG Duration 8 weeks Assessment Summary Assessment Pt is a 74 y/o female presenting with degenerative spinal changes, back pain and LE weakness. Her biggest complaint is leg weakness and then back pain. She would like to be able to get up off the floor without assist and to be able to stand up from the toilet without UE assist. She will benefit from PT to address these goals. PT plan will include pelvic realignment after noted pelvic obliquities today, flexibility, body mechanics education and progressive strengthening. Barriers to PT include history of stopping previously helpful PT exercises for her back and degenerative spinal changes. Physical Therapy Plan Frequency and Duration Frequency of Treatment 2x/Week Duration of Treatment 8 weeks Plan of Care Start Date 07/23/20 Plan of Care End Date 09/22/20 Therapeutic Interventions Therapeutic Interventions Aquatic Therapy,Balance Training,Canalithic Repositioning,Gait Training, Home Exercise Program,Joint Mobilizations,Manual Therapy, Neuromuscular Re-education, Patient/Caregiver Education, Self-Care/Home Management,Soft Tissue Mobilization,Taping, Therapeutic Activities, Therapeutic Exercises Modalities Cold Pack/Ice Massage,Hot Packs Next Visit Focus/Plan Next Note Type Treatment Note Next Visit Plan Pelvic realignment exercises, lumbar rotation, hamstring and calf stretch with ankle pump and hands behind leg, abdominal drawing in for log rolling. Soon, add body mechanics education and re-try sit to stand with core engaged once she understands abdominal drawing in Plan of Care Dates Plan of Care Start Date 07/23/20 Plan of Care End Date 09/22/20 Electronically Signed by: Beryl Breen, PT 07/23/20 2800 Please Sign and Return: I have reviewed this Plan of Care and certify that the skilled therapy services above are required to meet the patient?s needs. Physician Signature Date Printed Name and Credentials Clinical Instructor Signature Printed Name and Credentials
--- NOTE | 2020-07-29 09:00 | PT.OTN ---
Current Diagnoses Other idiopathic scoliosis, site unspecified (07/29/20) Spondylosis without myelopathy or radiculopathy, lumbosacral region (07/29/20) Other symptoms and signs involving the musculoskeletal system (07/29/20) Physical Therapy Treatment Note PT-OP-A Visit Information Start: 07/22/20 08:29 Freq: Status: Active Protocol: Document 07/29/20 08:18 MB (Rec: 07/29/20 08:46 MB [id number]) Out-Patient Physical Therapy Visit Information Visit Information Visit Type Treatment Note Visit Note Medicare Regence Visit Start Time 08:18 Visit Stop Time 08:58 Total Visit Minutes 40 Visit Number 2 PT-OP-B Current Condition Start: 07/22/20 08:29 Freq: Status: Active Protocol: Document 07/23/20 09:01 MB (Rec: 07/23/20 09:12 MB [id number]) Current Condition History of Current Condition Onset Date 1 year leg weakness Current Complaints Leg weakness with sitting, trouble getting up, back discomfort History of Current Condition Pt reports that getting up off the toilet is difficult. She has trouble getting on and off the power boat. She has to use her hands to stand up d/t leg weakness. Pt has had PT in the past for her back but she did not con't with exercises. There is no reason for this, maybe just forgetting. She doesn't feel safe enough to bike outside and tries to walk but has weakness. Pt denies numbness and tingling in her legs. Pt reports 4-5/10 back across her LB. She reports sitting at her computer longer than 10 minutes is a problem. Pt reports that her last fall was two years ago. She broke her right forearm. She tripped over her 's shoes in the house. Prior Treatments and Tests PT in the past 10 years for back pain, MRI lumbar spine : moderate levoconvex scoliosis and multiple levels of lumbar spine degenerative change are seen Treatment Goals Patient/Caregiver Goals To increase leg strength and how to get off the floor if she falls, to relieve back pain PT-OP-C Subjective Start: 07/22/20 08:29 Freq: Status: Active Protocol: Document 07/29/20 08:18 MB (Rec: 07/29/20 08:46 MB [id number]) OP-PT Subjective Patient Comments Patient Comments Pt states that she did fine after the evaluation. PT-OP-G Mobility & Gait Start: 07/22/20 08:29 Freq: Status: Active Protocol: Document 07/23/20 09:01 MB (Rec: 07/23/20 11:15 MB [id number]) OP Gait Assessment Gait Gait Assistance Required: Independent Distance (Feet) 50 Able to Maintain Weight Bearing Status Yes During Gait Assistive Devices Assistive Device None Orthotic/Prosthetic Devices or Brace: No Gait Deviations General Gait Pattern Flexed Trunk,Narrow Based Gait Factors Limiting Gait Function Factors Limiting Gait Function Limited Range of Motion,Poor Balance Comments Gait Comments Pt presents with narrow SABRINA, spinal changes as noted in postural assessment below, decreased arm swing with gait PT-OP-J Posture/Palpation/Skin Start: 07/22/20 08:29 Freq: Status: Active Protocol: Document 07/23/20 09:01 MB (Rec: 07/23/20 11:15 MB [id number]) Posture Evaluation Comments Posture Comments This date, pt is unable to stand up from the chair without UE support Standing posture with shoes on : Dowager's hump, anterior tilt pelvis, right iliac crest mildly higher than the left, right breast lower than the left and pt does report remote history of some soft tissue removed on left breast, spinal curvature changes thoracic spine with convexity on the right making scapular position more elevated right compared to left, narrow SABRINA and B great toe valgus, greater on the right. PT-OP-K Range of Motion Start: 07/22/20 08:29 Freq: Status: Active Protocol: Document 07/23/20 09:01 MB (Rec: 07/23/20 11:15 MB [id number]) Wrist Goniometric Range of Motion ROM Limitations Comments Right wrist bony changes and pt reports old fracture and surgery PT-OP-M Strength Start: 07/22/20 08:29 Freq: Status: Active Protocol: Document 07/23/20 09:01 MB (Rec: 07/23/20 11:15 MB [id number]) Hip Strength Hip Manual Muscle Testing Left Flexion (L2) 4 Good Abduction 4 Good Adduction 3+ Fair+ Right Flexion (L2) 4 Good Abduction 4 Good Adduction 4 Good Knee Strength Knee Manual Muscle Testing Left Flexion (S2) 4 Good Extension (L3) 4 Good Right Flexion (S2) 4 Good Extension (L3) 4 Good Ankle/Foot Strength Ankle and Foot Manual Muscle Testing Left Dorsiflexion (L4) 5 Normal Inversion 5 Normal Eversion (S1) 5 Normal Right Dorsiflexion (L4) 5 Normal Inversion 5 Normal Eversion (S1) 5 Normal Toe Strength Toe Manual Muscle Testing Left Great Toe Extension 5 Normal Right Great Toe Extension 5 Normal PT-OP-Q Treatments Start: 07/22/20 08:29 Freq: Status: Active Protocol: Document 07/29/20 08:18 MB (Rec: 07/29/20 08:46 MB [id number]) Therapeutic Exercises Supine Exercises Log roll technique Comments Multiple trials and pt has trouble, cues for abdominal drawing in 3 Supine Exercise Name Abdominal drawing in Comments Perform before log roll 2 Supine Exercise Name Hamstring stretch, hands behind thigh and AP Side bilateral Comments Opposite leg straight and AP once in position 1 Supine Exercise Name Pelvic realignment exercises Side bilateral Comments 5 reps, 3 sec hold all exercises Standing Exercises Thoracic mobilizatin with kids' ball Comments Ed today, pt performs and will add to HEP Manual Therapy Treatment Other Other Manual Treatments Pt kneeling on wedge and leaning over plinth: STM thoracic and lumbar paraspinals, B hip rotators and QL and pt responds well initially after treatment PT-OP-T Assessment and Plan Start: 07/22/20 08:29 Freq: Status: Active Protocol: Document 07/29/20 08:18 MB (Rec: 07/29/20 08:46 MB [id number]) Physical Therapy Assessment Rehab Potential Rehabilitation Potential Fair Evaluation Complexity Number of Personal Factors/Comorbidities 1-2 Number of Body Systems Impaired 1-2 Clinical Presentation at Evaluation Evolving Impairments Impairments Activity Tolerance,Balance, Functional Activities, Functional Mobility,Gait,Pain, Posture,ROM,Soft Tissue Mobility,Strength Other Impairments Personal factors include not continuing PT exercises for her back that were provided in the past that she states were helpful. Body systems affected include musculoskeletal. Her clinical presentation is evolving in setting of progressive changes to her spine per MRI 2019 and 2012 and noticeable spinal degnerative changes on PT eval today. Other Concerns Fall Risk Yes Goals 4 Senior Living Goal (LTG) Pt will gait train at least 1200 feet without AD in 6 minutes to improve community ambulation by 09/22/20. LTG Duration 8 weeks Three Senior Living Goal (LTG) Pt will be able to get off the floor with UE support and superv to allow safe floor transfers if needed at home by 09/22/20. LTG Duration 8 weeks Two Communications Maintainer Goal (LTG) Pt will perform 8 reps sit to stand without UE support in 30 sec to reflect improved functional strength by 09/22/20 . LTG Duration 8 weeks One Communications Maintainer Goal (LTG) Pt will perform progressive HEP with I including pelvic realignment, flexibility, breathing, core and LE strengthening and balance exercises to improve functional mobility by 09/22/20 . LTG Duration 8 weeks Assessment Summary Assessment Initiated pelvic realignment, flexibility and core awareness today and manual work. Con't progression as written under plan below. Physical Therapy Plan Frequency and Duration Frequency of Treatment 2x/Week Duration of Treatment 8 weeks Plan of Care Start Date 07/23/20 Plan of Care End Date 09/22/20 Therapeutic Interventions Therapeutic Interventions Aquatic Therapy,Balance Training,Canalithic Repositioning,Gait Training, Home Exercise Program,Joint Mobilizations,Manual Therapy, Neuromuscular Re-education, Patient/Caregiver Education, Self-Care/Home Management,Soft Tissue Mobilization,Taping, Therapeutic Activities, Therapeutic Exercises Modalities Cold Pack/Ice Massage,Hot Packs Next Visit Focus/Plan Next Note Type Treatment Note Next Visit Plan Soon, add body mechanics education and re-try sit to stand with core engaged once she understands abdominal drawing in, consider Elias stretch and progressive leg strengthening with core engaged.
--- NOTE | 2020-07-31 09:03 | PT.OTN ---
Current Diagnoses Other idiopathic scoliosis, site unspecified (07/31/20) Spondylosis without myelopathy or radiculopathy, lumbosacral region (07/31/20) Other symptoms and signs involving the musculoskeletal system (07/31/20) Physical Therapy Treatment Note PT-OP-A Visit Information Start: 07/22/20 08:29 Freq: Status: Active Protocol: Document 07/31/20 08:15 MB (Rec: 07/31/20 08:43 MB [id number]) Out-Patient Physical Therapy Visit Information Visit Information Visit Type Treatment Note Visit Note Medicare Regence Visit Start Time 08:15 Visit Stop Time 09:00 Total Visit Minutes 45 Visit Number 3 PT-OP-B Current Condition Start: 07/22/20 08:29 Freq: Status: Active Protocol: Document 07/23/20 09:01 MB (Rec: 07/23/20 09:12 MB [id number]) Current Condition History of Current Condition Onset Date 1 year leg weakness Current Complaints Leg weakness with sitting, trouble getting up, back discomfort History of Current Condition Pt reports that getting up off the toilet is difficult. She has trouble getting on and off the power boat. She has to use her hands to stand up d/t leg weakness. Pt has had PT in the past for her back but she did not con't with exercises. There is no reason for this, maybe just forgetting. She doesn't feel safe enough to bike outside and tries to walk but has weakness. Pt denies numbness and tingling in her legs. Pt reports 4-5/10 back across her LB. She reports sitting at her computer longer than 10 minutes is a problem. Pt reports that her last fall was two years ago. She broke her right forearm. She tripped over her 's shoes in the house. Prior Treatments and Tests PT in the past 10 years for back pain, MRI lumbar spine : moderate levoconvex scoliosis and multiple levels of lumbar spine degenerative change are seen Treatment Goals Patient/Caregiver Goals To increase leg strength and how to get off the floor if she falls, to relieve back pain PT-OP-C Subjective Start: 07/22/20 08:29 Freq: Status: Active Protocol: Document 07/31/20 08:15 MB (Rec: 07/31/20 08:43 MB [id number]) OP-PT Subjective Patient Comments Patient Comments Pt got the kids ball at [facility]. PT-OP-G Mobility & Gait Start: 07/22/20 08:29 Freq: Status: Active Protocol: Document 07/23/20 09:01 MB (Rec: 07/23/20 11:15 MB [id number]) OP Gait Assessment Gait Gait Assistance Required: Independent Distance (Feet) 50 Able to Maintain Weight Bearing Status Yes During Gait Assistive Devices Assistive Device None Orthotic/Prosthetic Devices or Brace: No Gait Deviations General Gait Pattern Flexed Trunk,Narrow Based Gait Factors Limiting Gait Function Factors Limiting Gait Function Limited Range of Motion,Poor Balance Comments Gait Comments Pt presents with narrow SABRINA, spinal changes as noted in postural assessment below, decreased arm swing with gait PT-OP-J Posture/Palpation/Skin Start: 07/22/20 08:29 Freq: Status: Active Protocol: Document 07/23/20 09:01 MB (Rec: 07/23/20 11:15 MB [id number]) Posture Evaluation Comments Posture Comments This date, pt is unable to stand up from the chair without UE support Standing posture with shoes on : Dowager's hump, anterior tilt pelvis, right iliac crest mildly higher than the left, right breast lower than the left and pt does report remote history of some soft tissue removed on left breast, spinal curvature changes thoracic spine with convexity on the right making scapular position more elevated right compared to left, narrow SABRINA and B great toe valgus, greater on the right. PT-OP-K Range of Motion Start: 07/22/20 08:29 Freq: Status: Active Protocol: Document 07/23/20 09:01 MB (Rec: 07/23/20 11:15 MB [id number]) Wrist Goniometric Range of Motion ROM Limitations Comments Right wrist bony changes and pt reports old fracture and surgery PT-OP-M Strength Start: 07/22/20 08:29 Freq: Status: Active Protocol: Document 07/23/20 09:01 MB (Rec: 07/23/20 11:15 MB [id number]) Hip Strength Hip Manual Muscle Testing Left Flexion (L2) 4 Good Abduction 4 Good Adduction 3+ Fair+ Right Flexion (L2) 4 Good Abduction 4 Good Adduction 4 Good Knee Strength Knee Manual Muscle Testing Left Flexion (S2) 4 Good Extension (L3) 4 Good Right Flexion (S2) 4 Good Extension (L3) 4 Good Ankle/Foot Strength Ankle and Foot Manual Muscle Testing Left Dorsiflexion (L4) 5 Normal Inversion 5 Normal Eversion (S1) 5 Normal Right Dorsiflexion (L4) 5 Normal Inversion 5 Normal Eversion (S1) 5 Normal Toe Strength Toe Manual Muscle Testing Left Great Toe Extension 5 Normal Right Great Toe Extension 5 Normal PT-OP-Q Treatments Start: 07/22/20 08:29 Freq: Status: Active Protocol: Document 07/31/20 08:15 MB (Rec: 07/31/20 08:43 MB [id number]) Therapeutic Exercises Standing Exercises Thoracic mobilizatin with kids' ball Comments Kids ball thoracic massage Manual Therapy Treatment Other Other Manual Treatments Pt kneeling on wedge and leaning over plinth: STM thoracic and lumbar paraspinals, B hip rotators and QL and pt responds well Self-Care/Home Management Treatment Education Other Education Handouts for body mechanics for sitting, lifting out of trunk, carrying small box, sitting at desk and in car and ed for core engagement and glute engagement, sat on 55 cm therapy ball PT-OP-T Assessment and Plan Start: 07/22/20 08:29 Freq: Status: Active Protocol: Document 07/31/20 08:15 MB (Rec: 07/31/20 08:43 MB [id number]) Physical Therapy Assessment Rehab Potential Rehabilitation Potential Fair Evaluation Complexity Number of Personal Factors/Comorbidities 1-2 Number of Body Systems Impaired 1-2 Clinical Presentation at Evaluation Evolving Impairments Impairments Activity Tolerance,Balance, Functional Activities, Functional Mobility,Gait,Pain, Posture,ROM,Soft Tissue Mobility,Strength Other Impairments Personal factors include not continuing PT exercises for her back that were provided in the past that she states were helpful. Body systems affected include musculoskeletal. Her clinical presentation is evolving in setting of progressive changes to her spine per MRI 2019 and 2012 and noticeable spinal degnerative changes on PT eval today. Other Concerns Fall Risk Yes Goals 4 Snow Removal/Plowing Goal (LTG) Pt will gait train at least 1200 feet without AD in 6 minutes to improve community ambulation by 09/22/20. LTG Duration 8 weeks Three Snow Removal/Plowing Goal (LTG) Pt will be able to get off the floor with UE support and superv to allow safe floor transfers if needed at home by 09/22/20. LTG Duration 8 weeks Two Assisted Goal (LTG) Pt will perform 8 reps sit to stand without UE support in 30 sec to reflect improved functional strength by 09/22/20 . LTG Duration 8 weeks One Assisted Goal (LTG) Pt will perform progressive HEP with I including pelvic realignment, flexibility, breathing, core and LE strengthening and balance exercises to improve functional mobility by 09/22/20 . LTG Duration 8 weeks Assessment Summary Assessment Initiated body mechanics and ergonomics training today. Pt needs a new desk chair and talked about therapy ball or therapy ball chair today. More manual work today. Physical Therapy Plan Frequency and Duration Frequency of Treatment 2x/Week Duration of Treatment 8 weeks Plan of Care Start Date 07/23/20 Plan of Care End Date 09/22/20 Therapeutic Interventions Therapeutic Interventions Aquatic Therapy,Balance Training,Canalithic Repositioning,Gait Training, Home Exercise Program,Joint Mobilizations,Manual Therapy, Neuromuscular Re-education, Patient/Caregiver Education, Self-Care/Home Management,Soft Tissue Mobilization,Taping, Therapeutic Activities, Therapeutic Exercises Modalities Cold Pack/Ice Massage,Hot Packs Next Visit Focus/Plan Next Note Type Treatment Note Next Visit Plan Progress leg strengthening in sitting with core: AP with eversion, LAQ and hip abduction with glutes and core engaged
--- NOTE | 2020-08-05 09:48 | PT.OTN ---
Current Diagnoses Other idiopathic scoliosis, site unspecified (08/05/20) Spondylosis without myelopathy or radiculopathy, lumbosacral region (08/05/20) Other symptoms and signs involving the musculoskeletal system (08/05/20) Physical Therapy Treatment Note PT-OP-A Visit Information Start: 07/22/20 08:29 Freq: Status: Active Protocol: Document 08/05/20 09:00 SP (Rec: 08/05/20 12:05 SP [id number]) Out-Patient Physical Therapy Visit Information Visit Information Visit Type Treatment Note Visit Note Medicare Regence Visit Start Time 09:00 Visit Stop Time 09:48 Total Visit Minutes 48 Visit Number 4 Number of GRAPPLE OPERATOR Visits 1 Evaluation Information Evaluation Date 07/23/20 PT-OP-B Current Condition Start: 07/22/20 08:29 Freq: Status: Active Protocol: Document 07/23/20 09:01 MB (Rec: 07/23/20 09:12 MB [id number]) Current Condition History of Current Condition Onset Date 1 year leg weakness Current Complaints Leg weakness with sitting, trouble getting up, back discomfort History of Current Condition Pt reports that getting up off the toilet is difficult. She has trouble getting on and off the power boat. She has to use her hands to stand up d/t leg weakness. Pt has had PT in the past for her back but she did not con't with exercises. There is no reason for this, maybe just forgetting. She doesn't feel safe enough to bike outside and tries to walk but has weakness. Pt denies numbness and tingling in her legs. Pt reports 4-5/10 back across her LB. She reports sitting at her computer longer than 10 minutes is a problem. Pt reports that her last fall was two years ago. She broke her right forearm. She tripped over her 's shoes in the house. Prior Treatments and Tests PT in the past 10 years for back pain, MRI lumbar spine : moderate levoconvex scoliosis and multiple levels of lumbar spine degenerative change are seen Treatment Goals Patient/Caregiver Goals To increase leg strength and how to get off the floor if she falls, to relieve back pain PT-OP-C Subjective Start: 07/22/20 08:29 Freq: Status: Active Protocol: Document 08/05/20 09:00 SP (Rec: 05/11/21 12:05 SP [id number]) OP-PT Subjective Patient Comments Patient Comments Pt stated responded well to last tx with manual therapy, not doing exercises as much as should. I am weak in my thighs, want to strengthen them to get off toilet better. Am using MHP when get up to help back feel better. I probably sit to much. PT-OP-G Mobility & Gait Start: 07/22/20 08:29 Freq: Status: Active Protocol: Document 07/23/20 09:01 MB (Rec: 07/23/20 11:15 MB [id number]) OP Gait Assessment Gait Gait Assistance Required: Independent Distance (Feet) 50 Able to Maintain Weight Bearing Status Yes During Gait Assistive Devices Assistive Device None Orthotic/Prosthetic Devices or Brace: No Gait Deviations General Gait Pattern Flexed Trunk,Narrow Based Gait Factors Limiting Gait Function Factors Limiting Gait Function Limited Range of Motion,Poor Balance Comments Gait Comments Pt presents with narrow SABRINA, spinal changes as noted in postural assessment below, decreased arm swing with gait PT-OP-J Posture/Palpation/Skin Start: 07/22/20 08:29 Freq: Status: Active Protocol: Document 07/23/20 09:01 MB (Rec: 07/23/20 11:15 MB [id number]) Posture Evaluation Comments Posture Comments This date, pt is unable to stand up from the chair without UE support Standing posture with shoes on : Dowager's hump, anterior tilt pelvis, right iliac crest mildly higher than the left, right breast lower than the left and pt does report remote history of some soft tissue removed on left breast, spinal curvature changes thoracic spine with convexity on the right making scapular position more elevated right compared to left, narrow SABRINA and B great toe valgus, greater on the right. PT-OP-K Range of Motion Start: 07/22/20 08:29 Freq: Status: Active Protocol: Document 07/23/20 09:01 MB (Rec: 07/23/20 11:15 MB [id number]) Wrist Goniometric Range of Motion ROM Limitations Comments Right wrist bony changes and pt reports old fracture and surgery PT-OP-M Strength Start: 07/22/20 08:29 Freq: Status: Active Protocol: Document 07/23/20 09:01 MB (Rec: 07/23/20 11:15 MB [id number]) Hip Strength Hip Manual Muscle Testing Left Flexion (L2) 4 Good Abduction 4 Good Adduction 3+ Fair+ Right Flexion (L2) 4 Good Abduction 4 Good Adduction 4 Good Knee Strength Knee Manual Muscle Testing Left Flexion (S2) 4 Good Extension (L3) 4 Good Right Flexion (S2) 4 Good Extension (L3) 4 Good Ankle/Foot Strength Ankle and Foot Manual Muscle Testing Left Dorsiflexion (L4) 5 Normal Inversion 5 Normal Eversion (S1) 5 Normal Right Dorsiflexion (L4) 5 Normal Inversion 5 Normal Eversion (S1) 5 Normal Toe Strength Toe Manual Muscle Testing Left Great Toe Extension 5 Normal Right Great Toe Extension 5 Normal PT-OP-Q Treatments Start: 07/22/20 08:29 Freq: Status: Active Protocol: Document 08/05/20 09:00 SP (Rec: 08/05/20 12:05 SP [id number]) Therapeutic Exercises Sitting Exercises glut stretch Sitting Exercise Name added to HEP Side bilateral Reps/Minutes 30 x2 Comments I feel a good hip stretch LAQ Sitting Exercise Name added to HE P Side bilateral Equipment Used on plinth Reps/Minutes 2 x10 Comments good quad working, I need this seated therapy ball Sitting Exercise Name sitting posture> pelvic tilts Equipment Used (seated on chair at home for now) Reps/Minutes 4 min Comments feels 55cm to low, 65 cm little high might look for 60 cm for home- liked Standing Exercises sit<> stands Standing Exercise Name added to HEP Resistance hands on lap assist for now Reps/Minutes x7 total Comments cued scoot forward, feet underneath, hip hinge- improved w/ reps racquetball self STMs at wall Standing Exercise Name B glut, ES/paraspinals (as need for tightness) Reps/Minutes 3 min total Comments this feels like a good hurt massage, I need to get this Manual Therapy Treatment Other Other Manual Treatments Pt kneeling on wedge and leaning over plinth: STM thoracic and lumbar paraspinals, B hip rotators and QL and pt responds well PT-OP-T Assessment and Plan Start: 07/22/20 08:29 Freq: Status: Active Protocol: Document 08/05/20 09:00 SP (Rec: 08/05/20 12:05 SP [id number]) Physical Therapy Assessment Goals 4 Senior Living Goal (LTG) Pt will gait train at least 1200 feet without AD in 6 minutes to improve community ambulation by 09/22/20. LTG Duration 8 weeks Three Rapier Insertion Loom Fixer Goal (LTG) Pt will be able to get off the floor with UE support and superv to allow safe floor transfers if needed at home by 09/22/20. LTG Duration 8 weeks Two Senior Living Goal (LTG) Pt will perform 8 reps sit to stand without UE support in 30 sec to reflect improved functional strength by 09/22/20 . LTG Duration 8 weeks One Senior Living Goal (LTG) Pt will perform progressive HEP with I including pelvic realignment, flexibility, breathing, core and LE strengthening and balance exercises to improve functional mobility by 09/22/20 . 08/05/20: initiated LAQ, glut stretch, sit <>stands, pelvic tilts w/ tall posture today- good quad working response. LTG Duration 8 weeks Assessment Summary Assessment Pt stated hasn't found chair wants yet. Initiated seated posture w/ pelvic tilts on plinth then over therapy ball in PT and initiated LAQ with good feedback may get one for home felt legs were working better. Pt improved with sit< > stands and felt the racquetball was very helpful in massaging as we do in tx to do at home. Physical Therapy Plan Frequency and Duration Frequency of Treatment 2x/Week Duration of Treatment 8 weeks Plan of Care Start Date 07/23/20 Plan of Care End Date 09/22/20 Therapeutic Interventions Therapeutic Interventions Aquatic Therapy,Balance Training,Canalithic Repositioning,Gait Training, Home Exercise Program,Joint Mobilizations,Manual Therapy, Neuromuscular Re-education, Patient/Caregiver Education, Self-Care/Home Management,Soft Tissue Mobilization,Taping, Therapeutic Activities, Therapeutic Exercises Modalities Cold Pack/Ice Massage,Hot Packs Next Visit Focus/Plan Next Note Type Treatment Note Next Visit Plan Assess response to: manual, self w/ rac ball, LAQ, pelvic tilts seated on SB, hip stretch and sit<>stands. POC: Progress leg strengthening in sitting with core: AP with eversion, LAQ and hip abduction with glutes and core engaged
--- NOTE | 2020-08-07 09:02 | PT.OTN ---
Current Diagnoses Other idiopathic scoliosis, site unspecified (08/07/20) Spondylosis without myelopathy or radiculopathy, lumbosacral region (08/07/20) Other symptoms and signs involving the musculoskeletal system (08/07/20) Physical Therapy Treatment Note PT-OP-A Visit Information Start: 07/22/20 08:29 Freq: Status: Active Protocol: Document 08/07/20 08:15 MB (Rec: 08/07/20 08:59 MB [id number]) Out-Patient Physical Therapy Visit Information Visit Information Visit Type Treatment Note Visit Note Medicare Regence Visit Start Time 08:15 Visit Stop Time 08:53 Total Visit Minutes 38 Visit Number 5 PT-OP-B Current Condition Start: 07/22/20 08:29 Freq: Status: Active Protocol: Document 07/23/20 09:01 MB (Rec: 07/23/20 09:12 MB [id number]) Current Condition History of Current Condition Onset Date 1 year leg weakness Current Complaints Leg weakness with sitting, trouble getting up, back discomfort History of Current Condition Pt reports that getting up off the toilet is difficult. She has trouble getting on and off the power boat. She has to use her hands to stand up d/t leg weakness. Pt has had PT in the past for her back but she did not con't with exercises. There is no reason for this, maybe just forgetting. She doesn't feel safe enough to bike outside and tries to walk but has weakness. Pt denies numbness and tingling in her legs. Pt reports 4-5/10 back across her LB. She reports sitting at her computer longer than 10 minutes is a problem. Pt reports that her last fall was two years ago. She broke her right forearm. She tripped over her 's shoes in the house. Prior Treatments and Tests PT in the past 10 years for back pain, MRI lumbar spine : moderate levoconvex scoliosis and multiple levels of lumbar spine degenerative change are seen Treatment Goals Patient/Caregiver Goals To increase leg strength and how to get off the floor if she falls, to relieve back pain PT-OP-C Subjective Start: 07/22/20 08:29 Freq: Status: Active Protocol: Document 08/07/20 08:15 MB (Rec: 08/07/20 08:59 MB [id number]) OP-PT Subjective Patient Comments Patient Comments Pt states that she feels it in her legs (the hard work from last PT treatment). PT-OP-G Mobility & Gait Start: 07/22/20 08:29 Freq: Status: Active Protocol: Document 07/23/20 09:01 MB (Rec: 07/23/20 11:15 MB [id number]) OP Gait Assessment Gait Gait Assistance Required: Independent Distance (Feet) 50 Able to Maintain Weight Bearing Status Yes During Gait Assistive Devices Assistive Device None Orthotic/Prosthetic Devices or Brace: No Gait Deviations General Gait Pattern Flexed Trunk,Narrow Based Gait Factors Limiting Gait Function Factors Limiting Gait Function Limited Range of Motion,Poor Balance Comments Gait Comments Pt presents with narrow SABRINA, spinal changes as noted in postural assessment below, decreased arm swing with gait PT-OP-J Posture/Palpation/Skin Start: 07/22/20 08:29 Freq: Status: Active Protocol: Document 07/23/20 09:01 MB (Rec: 07/23/20 11:15 MB [id number]) Posture Evaluation Comments Posture Comments This date, pt is unable to stand up from the chair without UE support Standing posture with shoes on : Dowager's hump, anterior tilt pelvis, right iliac crest mildly higher than the left, right breast lower than the left and pt does report remote history of some soft tissue removed on left breast, spinal curvature changes thoracic spine with convexity on the right making scapular position more elevated right compared to left, narrow SABRINA and B great toe valgus, greater on the right. PT-OP-K Range of Motion Start: 07/22/20 08:29 Freq: Status: Active Protocol: Document 07/23/20 09:01 MB (Rec: 07/23/20 11:15 MB [id number]) Wrist Goniometric Range of Motion ROM Limitations Comments Right wrist bony changes and pt reports old fracture and surgery PT-OP-M Strength Start: 07/22/20 08:29 Freq: Status: Active Protocol: Document 07/23/20 09:01 MB (Rec: 07/23/20 11:15 MB [id number]) Hip Strength Hip Manual Muscle Testing Left Flexion (L2) 4 Good Abduction 4 Good Adduction 3+ Fair+ Right Flexion (L2) 4 Good Abduction 4 Good Adduction 4 Good Knee Strength Knee Manual Muscle Testing Left Flexion (S2) 4 Good Extension (L3) 4 Good Right Flexion (S2) 4 Good Extension (L3) 4 Good Ankle/Foot Strength Ankle and Foot Manual Muscle Testing Left Dorsiflexion (L4) 5 Normal Inversion 5 Normal Eversion (S1) 5 Normal Right Dorsiflexion (L4) 5 Normal Inversion 5 Normal Eversion (S1) 5 Normal Toe Strength Toe Manual Muscle Testing Left Great Toe Extension 5 Normal Right Great Toe Extension 5 Normal PT-OP-Q Treatments Start: 07/22/20 08:29 Freq: Status: Active Protocol: Document 08/07/20 08:15 MB (Rec: 08/07/20 08:59 MB [id number]) Therapeutic Exercises Sitting Exercises Ankle eversion and DF with band Side bilateral Equipment Used Level 1 band Comments 10 reps slowly Clam in sitting Side bilateral Equipment Used Level 1 band Comments 10 reps slowly Thoracic rotation Side bilateral Comments 3 reps to each side Hip rotator stretch Side bilateral Comments 30 sec hold, 1 rep each side Hamstring stretch Side bilateral Comments 30 sec hold, 2 reps each side LAQ Side bilateral Equipment Used Level 1 band added today Comments 5 reps, AP end-range, alternating Standing Exercises sit<> stands Standing Exercise Name Better form with ball between knees Comments 5 reps without UE support and then 4 more with small ball between knee racquetball self STMs at wall Standing Exercise Name Intrascapular muscles, glutes, use of sock Side bilateral PT-OP-T Assessment and Plan Start: 07/22/20 08:29 Freq: Status: Active Protocol: Document 08/07/20 08:15 MB (Rec: 08/07/20 08:59 MB [id number]) Physical Therapy Assessment Rehab Potential Rehabilitation Potential Fair Evaluation Complexity Number of Personal Factors/Comorbidities 1-2 Number of Body Systems Impaired 1-2 Clinical Presentation at Evaluation Evolving Impairments Impairments Activity Tolerance,Balance, Functional Activities, Functional Mobility,Gait,Pain, Posture,ROM,Soft Tissue Mobility,Strength Other Impairments Personal factors include not continuing PT exercises for her back that were provided in the past that she states were helpful. Body systems affected include musculoskeletal. Her clinical presentation is evolving in setting of progressive changes to her spine per MRI 2019 and 2012 and noticeable spinal degnerative changes on PT eval today. Other Concerns Fall Risk Yes Goals 4 Net C Developer Goal (LTG) Pt will gait train at least 1200 feet without AD in 6 minutes to improve community ambulation by 09/22/20. LTG Duration 8 weeks Three Alf Goal (LTG) Pt will be able to get off the floor with UE support and superv to allow safe floor transfers if needed at home by 09/22/20. LTG Duration 8 weeks Two Alf Goal (LTG) Pt will perform 8 reps sit to stand without UE support in 30 sec to reflect improved functional strength by 09/22/20 . LTG Duration 8 weeks One Net C Developer Goal (LTG) Pt will perform progressive HEP with I including pelvic realignment, flexibility, breathing, core and LE strengthening and balance exercises to improve functional mobility by 09/22/20 . LTG Duration 8 weeks Assessment Summary Assessment B knees, right greater than left, are unstable with sit to stands without ball between her knees and look much better with knee between knees and legs stable. Ed pt to consider getting a ball for home and to try arm rests at home. Physical Therapy Plan Frequency and Duration Frequency of Treatment 2x/Week Duration of Treatment 8 weeks Plan of Care Start Date 07/23/20 Plan of Care End Date 09/22/20 Therapeutic Interventions Therapeutic Interventions Aquatic Therapy,Balance Training,Canalithic Repositioning,Gait Training, Home Exercise Program,Joint Mobilizations,Manual Therapy, Neuromuscular Re-education, Patient/Caregiver Education, Self-Care/Home Management,Soft Tissue Mobilization,Taping, Therapeutic Activities, Therapeutic Exercises Modalities Cold Pack/Ice Massage,Hot Packs Next Visit Focus/Plan Next Note Type Treatment Note Next Visit Plan Con't exercise review: sitting strengthening exercises, sit to stands with small ball between knees, and manual work , practice getting up off the floor
--- NOTE | 2020-08-11 10:34 | PT.OTN ---
Current Diagnoses Other idiopathic scoliosis, site unspecified (08/11/20) Spondylosis without myelopathy or radiculopathy, lumbosacral region (08/11/20) Other symptoms and signs involving the musculoskeletal system (08/11/20) Physical Therapy Treatment Note PT-OP-A Visit Information Start: 07/22/20 08:29 Freq: Status: Active Protocol: Document 08/11/20 09:51 SP (Rec: 08/11/20 11:43 SP [id number]) Out-Patient Physical Therapy Visit Information Visit Information Visit Type Treatment Note Visit Note Medicare Regence Visit Start Time 09:51 Visit Stop Time 10:34 Total Visit Minutes 43 Visit Number 6 Number of AIRSET MOLDER Visits 1 Evaluation Information Evaluation Date 07/23/20 PT-OP-B Current Condition Start: 07/22/20 08:29 Freq: Status: Active Protocol: Document 07/23/20 09:01 MB (Rec: 07/23/20 09:12 MB [id number]) Current Condition History of Current Condition Onset Date 1 year leg weakness Current Complaints Leg weakness with sitting, trouble getting up, back discomfort History of Current Condition Pt reports that getting up off the toilet is difficult. She has trouble getting on and off the power boat. She has to use her hands to stand up d/t leg weakness. Pt has had PT in the past for her back but she did not con't with exercises. There is no reason for this, maybe just forgetting. She doesn't feel safe enough to bike outside and tries to walk but has weakness. Pt denies numbness and tingling in her legs. Pt reports 4-5/10 back across her LB. She reports sitting at her computer longer than 10 minutes is a problem. Pt reports that her last fall was two years ago. She broke her right forearm. She tripped over her 's shoes in the house. Prior Treatments and Tests PT in the past 10 years for back pain, MRI lumbar spine : moderate levoconvex scoliosis and multiple levels of lumbar spine degenerative change are seen Treatment Goals Patient/Caregiver Goals To increase leg strength and how to get off the floor if she falls, to relieve back pain PT-OP-C Subjective Start: 07/22/20 08:29 Freq: Status: Active Protocol: Document 08/11/20 09:51 SP (Rec: 08/11/20 11:43 SP [id number]) OP-PT Subjective Patient Comments Patient Comments Pt stated doing well with my exercises I can feel that quad now working more and the ball in sock at wall really feels good. Patient Reported Progress Improving PT-OP-G Mobility & Gait Start: 07/22/20 08:29 Freq: Status: Active Protocol: Document 07/23/20 09:01 MB (Rec: 07/23/20 11:15 MB [id number]) OP Gait Assessment Gait Gait Assistance Required: Independent Distance (Feet) 50 Able to Maintain Weight Bearing Status Yes During Gait Assistive Devices Assistive Device None Orthotic/Prosthetic Devices or Brace: No Gait Deviations General Gait Pattern Flexed Trunk,Narrow Based Gait Factors Limiting Gait Function Factors Limiting Gait Function Limited Range of Motion,Poor Balance Comments Gait Comments Pt presents with narrow SABRINA, spinal changes as noted in postural assessment below, decreased arm swing with gait PT-OP-J Posture/Palpation/Skin Start: 07/22/20 08:29 Freq: Status: Active Protocol: Document 07/23/20 09:01 MB (Rec: 07/23/20 11:15 MB [id number]) Posture Evaluation Comments Posture Comments This date, pt is unable to stand up from the chair without UE support Standing posture with shoes on : Dowager's hump, anterior tilt pelvis, right iliac crest mildly higher than the left, right breast lower than the left and pt does report remote history of some soft tissue removed on left breast, spinal curvature changes thoracic spine with convexity on the right making scapular position more elevated right compared to left, narrow SABRINA and B great toe valgus, greater on the right. PT-OP-K Range of Motion Start: 07/22/20 08:29 Freq: Status: Active Protocol: Document 07/23/20 09:01 MB (Rec: 07/23/20 11:15 MB [id number]) Wrist Goniometric Range of Motion ROM Limitations Comments Right wrist bony changes and pt reports old fracture and surgery PT-OP-M Strength Start: 07/22/20 08:29 Freq: Status: Active Protocol: Document 07/23/20 09:01 MB (Rec: 07/23/20 11:15 MB [id number]) Hip Strength Hip Manual Muscle Testing Left Flexion (L2) 4 Good Abduction 4 Good Adduction 3+ Fair+ Right Flexion (L2) 4 Good Abduction 4 Good Adduction 4 Good Knee Strength Knee Manual Muscle Testing Left Flexion (S2) 4 Good Extension (L3) 4 Good Right Flexion (S2) 4 Good Extension (L3) 4 Good Ankle/Foot Strength Ankle and Foot Manual Muscle Testing Left Dorsiflexion (L4) 5 Normal Inversion 5 Normal Eversion (S1) 5 Normal Right Dorsiflexion (L4) 5 Normal Inversion 5 Normal Eversion (S1) 5 Normal Toe Strength Toe Manual Muscle Testing Left Great Toe Extension 5 Normal Right Great Toe Extension 5 Normal PT-OP-Q Treatments Start: 07/22/20 08:29 Freq: Status: Active Protocol: Document 08/11/20 09:51 SP (Rec: 08/11/20 11:43 SP [id number]) Therapeutic Exercises Sitting Exercises Ankle eversion and DF with band Side bilateral Equipment Used Level 1 band HEP (Red loop in PT) Comments 10 reps slowly each direction Clam in sitting Side bilateral Equipment Used Level 1 band (HEP)- Red loop in PT Comments 2x 10 reps good slowly pacing Thoracic rotation Side bilateral Resistance AROM HEP, Tb #1 ( PT only due to max cues for no SB compenstations Reps/Minutes x5 reps B Comments cued trunk alignment, rotation only Hip rotator stretch Sitting Exercise Name reviewed HEP Side bilateral Comments 30 sec hold, 1 rep each side Hamstring stretch Sitting Exercise Name reviewed HEP Side bilateral Comments 30 sec hold, 2 reps each side LAQ Sitting Exercise Name I feel it in my thighs, it's good Side bilateral Equipment Used Level 1 band loop around ankles (red loop in PT) Reps/Minutes 2x10 Comments AP end-range, alternating LEs Standing Exercises sit<> stands Standing Exercise Name Better form with ball between knees Equipment Used rolled towels for home more comfortable Reps/Minutes x8 Comments without UE support with 2 rolled towels between knee racquetball self STMs at wall Standing Exercise Name Intrascapular muscles, glutes, use of sock Side bilateral PT-OP-T Assessment and Plan Start: 07/22/20 08:29 Freq: Status: Active Protocol: Document 08/11/20 09:51 SP (Rec: 08/11/20 11:43 SP [id number]) Physical Therapy Assessment Goals 4 Cellophaner Goal (LTG) Pt will gait train at least 1200 feet without AD in 6 minutes to improve community ambulation by 09/22/20. LTG Duration 8 weeks Three Jail Goal (LTG) Pt will be able to get off the floor with UE support and superv to allow safe floor transfers if needed at home by 09/22/20. LTG Duration 8 weeks Two Jail Goal (LTG) Pt will perform 8 reps sit to stand without UE support in 30 sec to reflect improved functional strength by 09/22/20 . LTG Duration 8 weeks One Cellophaner Goal (LTG) Pt will perform progressive HEP with I including pelvic realignment, flexibility, breathing, core and LE strengthening and balance exercises to improve functional mobility by 09/22/20 . LTG Duration 8 weeks Assessment Summary Assessment Pt responded well to HEP review and use of rolled up thick towel for feedback knee apart during sit<>stands and good hip hinge no use of UEs. Pt requires cuing for recall, set up and directioning of ex, she states uses the sheets at home for help, likes the added writtend info last tx. Pt states likes how can feel her leg muscles working more, still pretty tight in hips, will continue to incorporate the stretching. Physical Therapy Plan Frequency and Duration Frequency of Treatment 2x/Week Duration of Treatment 8 weeks Plan of Care Start Date 07/23/20 Plan of Care End Date 09/22/20 Therapeutic Interventions Therapeutic Interventions Aquatic Therapy,Balance Training,Canalithic Repositioning,Gait Training, Home Exercise Program,Joint Mobilizations,Manual Therapy, Neuromuscular Re-education, Patient/Caregiver Education, Self-Care/Home Management,Soft Tissue Mobilization,Taping, Therapeutic Activities, Therapeutic Exercises Modalities Cold Pack/Ice Massage,Hot Packs Next Visit Focus/Plan Next Note Type Treatment Note Next Visit Plan Con't exercise review: sitting strengthening and flexibility exercises, sit to stands with small ball between knees, and manual work as needed, FUTURE TX: practice getting up off the floor.
--- NOTE | 2020-08-26 08:56 | PT.OTN ---
Current Diagnoses Other idiopathic scoliosis, site unspecified (08/26/20) Spondylosis without myelopathy or radiculopathy, lumbosacral region (08/26/20) Other symptoms and signs involving the musculoskeletal system (08/26/20) Physical Therapy Treatment Note PT-OP-A Visit Information Start: 07/22/20 08:29 Freq: Status: Active Protocol: Document 08/26/20 08:16 MB (Rec: 08/26/20 08:31 MB [id number]) Out-Patient Physical Therapy Visit Information Visit Information Visit Type Treatment Note Visit Note Medicare Regence Visit Start Time 08:16 Visit Stop Time 08:56 Total Visit Minutes 40 Visit Number 7 Number of NATUROPATHIC PHYSICIAN Visits 0 PT-OP-B Current Condition Start: 07/22/20 08:29 Freq: Status: Active Protocol: Document 07/23/20 09:01 MB (Rec: 07/23/20 09:12 MB [id number]) Current Condition History of Current Condition Onset Date 1 year leg weakness Current Complaints Leg weakness with sitting, trouble getting up, back discomfort History of Current Condition Pt reports that getting up off the toilet is difficult. She has trouble getting on and off the power boat. She has to use her hands to stand up d/t leg weakness. Pt has had PT in the past for her back but she did not con't with exercises. There is no reason for this, maybe just forgetting. She doesn't feel safe enough to bike outside and tries to walk but has weakness. Pt denies numbness and tingling in her legs. Pt reports 4-5/10 back across her LB. She reports sitting at her computer longer than 10 minutes is a problem. Pt reports that her last fall was two years ago. She broke her right forearm. She tripped over her 's shoes in the house. Prior Treatments and Tests PT in the past 10 years for back pain, MRI lumbar spine : moderate levoconvex scoliosis and multiple levels of lumbar spine degenerative change are seen Treatment Goals Patient/Caregiver Goals To increase leg strength and how to get off the floor if she falls, to relieve back pain PT-OP-C Subjective Start: 07/22/20 08:29 Freq: Status: Active Protocol: Document 08/26/20 08:16 MB (Rec: 08/26/20 08:31 MB [id number]) OP-PT Subjective Patient Comments Patient Comments Pt states that she was really busy over the past two weeks. Pt states that she is doing the sit to stands at home but not as much as she should. She does not know where her pelvic realignment exercises handouts are. PT-OP-G Mobility & Gait Start: 07/22/20 08:29 Freq: Status: Active Protocol: Document 07/23/20 09:01 MB (Rec: 07/23/20 11:15 MB [id number]) OP Gait Assessment Gait Gait Assistance Required: Independent Distance (Feet) 50 Able to Maintain Weight Bearing Status Yes During Gait Assistive Devices Assistive Device None Orthotic/Prosthetic Devices or Brace: No Gait Deviations General Gait Pattern Flexed Trunk,Narrow Based Gait Factors Limiting Gait Function Factors Limiting Gait Function Limited Range of Motion,Poor Balance Comments Gait Comments Pt presents with narrow SABRINA, spinal changes as noted in postural assessment below, decreased arm swing with gait PT-OP-J Posture/Palpation/Skin Start: 07/22/20 08:29 Freq: Status: Active Protocol: Document 07/23/20 09:01 MB (Rec: 07/23/20 11:15 MB [id number]) Posture Evaluation Comments Posture Comments This date, pt is unable to stand up from the chair without UE support Standing posture with shoes on : Dowager's hump, anterior tilt pelvis, right iliac crest mildly higher than the left, right breast lower than the left and pt does report remote history of some soft tissue removed on left breast, spinal curvature changes thoracic spine with convexity on the right making scapular position more elevated right compared to left, narrow SABRINA and B great toe valgus, greater on the right. PT-OP-K Range of Motion Start: 07/22/20 08:29 Freq: Status: Active Protocol: Document 07/23/20 09:01 MB (Rec: 07/23/20 11:15 MB [id number]) Wrist Goniometric Range of Motion ROM Limitations Comments Right wrist bony changes and pt reports old fracture and surgery PT-OP-M Strength Start: 07/22/20 08:29 Freq: Status: Active Protocol: Document 07/23/20 09:01 MB (Rec: 07/23/20 11:15 MB [id number]) Hip Strength Hip Manual Muscle Testing Left Flexion (L2) 4 Good Abduction 4 Good Adduction 3+ Fair+ Right Flexion (L2) 4 Good Abduction 4 Good Adduction 4 Good Knee Strength Knee Manual Muscle Testing Left Flexion (S2) 4 Good Extension (L3) 4 Good Right Flexion (S2) 4 Good Extension (L3) 4 Good Ankle/Foot Strength Ankle and Foot Manual Muscle Testing Left Dorsiflexion (L4) 5 Normal Inversion 5 Normal Eversion (S1) 5 Normal Right Dorsiflexion (L4) 5 Normal Inversion 5 Normal Eversion (S1) 5 Normal Toe Strength Toe Manual Muscle Testing Left Great Toe Extension 5 Normal Right Great Toe Extension 5 Normal PT-OP-Q Treatments Start: 07/22/20 08:29 Freq: Status: Active Protocol: Document 08/26/20 08:16 MB (Rec: 08/26/20 08:31 MB [id number]) Therapeutic Exercises Supine Exercises Pelvic realignment exercises Side bilateral Comments 5 reps all exercises, 3 rep hold all exercises Standing Exercises Thoracic mobilizatin with kids' ball Comments Re-today and pt performs on B glutes as well, purple ball Manual Therapy Treatment Other Other Manual Treatments Pt kneeling on wedge and leaning over plinth: STM B thoracolumbar paraspinals, hip rotators, QL and pt responds well to treatment PT-OP-T Assessment and Plan Start: 07/22/20 08:29 Freq: Status: Active Protocol: Document 08/26/20 08:16 MB (Rec: 08/26/20 08:31 MB [id number]) Physical Therapy Assessment Rehab Potential Rehabilitation Potential Fair Evaluation Complexity Number of Personal Factors/Comorbidities 1-2 Number of Body Systems Impaired 1-2 Clinical Presentation at Evaluation Evolving Impairments Impairments Activity Tolerance,Balance, Functional Activities, Functional Mobility,Gait,Pain, Posture,ROM,Soft Tissue Mobility,Strength Other Impairments Personal factors include not continuing PT exercises for her back that were provided in the past that she states were helpful. Body systems affected include musculoskeletal. Her clinical presentation is evolving in setting of progressive changes to her spine per MRI 2019 and 2012 and noticeable spinal degnerative changes on PT eval today. Other Concerns Fall Risk Yes Goals 4 Legal Recovery Specialist Goal (LTG) Pt will gait train at least 1200 feet without AD in 6 minutes to improve community ambulation by 09/22/20. LTG Duration 8 weeks Three Prison Goal (LTG) Pt will be able to get off the floor with UE support and superv to allow safe floor transfers if needed at home by 09/22/20. LTG Duration 8 weeks Two Legal Recovery Specialist Goal (LTG) Pt will perform 8 reps sit to stand without UE support in 30 sec to reflect improved functional strength by 09/22/20 . LTG Duration 8 weeks One Prison Goal (LTG) Pt will perform progressive HEP with I including pelvic realignment, flexibility, breathing, core and LE strengthening and balance exercises to improve functional mobility by 09/22/20 . LTG Duration 8 weeks Assessment Summary Assessment Pt states that she lost her handout for the ball squeeze one and so re-ed today in pelvic realignment exercises and provided another handout. Asked pt to bring in all her exercises next time to review and reduce as needed. Physical Therapy Plan Frequency and Duration Frequency of Treatment 2x/Week Duration of Treatment 8 weeks Plan of Care Start Date 07/23/20 Plan of Care End Date 09/22/20 Therapeutic Interventions Therapeutic Interventions Aquatic Therapy,Balance Training,Canalithic Repositioning,Gait Training, Home Exercise Program,Joint Mobilizations,Manual Therapy, Neuromuscular Re-education, Patient/Caregiver Education, Self-Care/Home Management,Soft Tissue Mobilization,Taping, Therapeutic Activities, Therapeutic Exercises Modalities Cold Pack/Ice Massage,Hot Packs Next Visit Focus/Plan Next Note Type Treatment Note Next Visit Plan Review pt's HEP, FUTURE TX: practice getting up off the floor.
--- NOTE | 2020-08-28 09:01 | PT.OTN ---
Current Diagnoses Other idiopathic scoliosis, site unspecified (08/28/20) Spondylosis without myelopathy or radiculopathy, lumbosacral region (08/28/20) Other symptoms and signs involving the musculoskeletal system (08/28/20) Physical Therapy Treatment Note PT-OP-A Visit Information Start: 07/22/20 08:29 Freq: Status: Active Protocol: Document 08/28/20 08:15 MB (Rec: 08/28/20 08:54 MB [id number]) Out-Patient Physical Therapy Visit Information Visit Information Visit Type Treatment Note Visit Note Medicare Reg[place] Visit Start Time 08:15 Visit Stop Time 08:56 Total Visit Minutes 41 Visit Number 8 PT-OP-B Current Condition Start: 07/22/20 08:29 Freq: Status: Active Protocol: Document 07/23/20 09:01 MB (Rec: 07/23/20 09:12 MB [id number]) Current Condition History of Current Condition Onset Date 1 year leg weakness Current Complaints Leg weakness with sitting, trouble getting up, back discomfort History of Current Condition Pt reports that getting up off the toilet is difficult. She has trouble getting on and off the power boat. She has to use her hands to stand up d/t leg weakness. Pt has had PT in the past for her back but she did not con't with exercises. There is no reason for this, maybe just forgetting. She doesn't feel safe enough to bike outside and tries to walk but has weakness. Pt denies numbness and tingling in her legs. Pt reports 4-5/10 back across her LB. She reports sitting at her computer longer than 10 minutes is a problem. Pt reports that her last fall was two years ago. She broke her right forearm. She tripped over her 's shoes in the house. Prior Treatments and Tests PT in the past 10 years for back pain, MRI lumbar spine : moderate levoconvex scoliosis and multiple levels of lumbar spine degenerative change are seen Treatment Goals Patient/Caregiver Goals To increase leg strength and how to get off the floor if she falls, to relieve back pain PT-OP-C Subjective Start: 07/22/20 08:29 Freq: Status: Active Protocol: Document 08/28/20 08:15 MB (Rec: 08/28/20 08:54 MB [id number]) OP-PT Subjective Patient Comments Patient Comments Pt states that the manual work with PT was really helpful last time. She has not been doing her exercises as she should. She thinks they will be helpful. PT-OP-G Mobility & Gait Start: 07/22/20 08:29 Freq: Status: Active Protocol: Document 07/23/20 09:01 MB (Rec: 07/23/20 11:15 MB [id number]) OP Gait Assessment Gait Gait Assistance Required: Independent Distance (Feet) 50 Able to Maintain Weight Bearing Status Yes During Gait Assistive Devices Assistive Device None Orthotic/Prosthetic Devices or Brace: No Gait Deviations General Gait Pattern Flexed Trunk,Narrow Based Gait Factors Limiting Gait Function Factors Limiting Gait Function Limited Range of Motion,Poor Balance Comments Gait Comments Pt presents with narrow SABRINA, spinal changes as noted in postural assessment below, decreased arm swing with gait PT-OP-J Posture/Palpation/Skin Start: 07/22/20 08:29 Freq: Status: Active Protocol: Document 07/23/20 09:01 MB (Rec: 07/23/20 11:15 MB [id number]) Posture Evaluation Comments Posture Comments This date, pt is unable to stand up from the chair without UE support Standing posture with shoes on : Dowager's hump, anterior tilt pelvis, right iliac crest mildly higher than the left, right breast lower than the left and pt does report remote history of some soft tissue removed on left breast, spinal curvature changes thoracic spine with convexity on the right making scapular position more elevated right compared to left, narrow SABRINA and B great toe valgus, greater on the right. PT-OP-K Range of Motion Start: 07/22/20 08:29 Freq: Status: Active Protocol: Document 07/23/20 09:01 MB (Rec: 07/23/20 11:15 MB [id number]) Wrist Goniometric Range of Motion ROM Limitations Comments Right wrist bony changes and pt reports old fracture and surgery PT-OP-M Strength Start: 07/22/20 08:29 Freq: Status: Active Protocol: Document 07/23/20 09:01 MB (Rec: 07/23/20 11:15 MB [id number]) Hip Strength Hip Manual Muscle Testing Left Flexion (L2) 4 Good Abduction 4 Good Adduction 3+ Fair+ Right Flexion (L2) 4 Good Abduction 4 Good Adduction 4 Good Knee Strength Knee Manual Muscle Testing Left Flexion (S2) 4 Good Extension (L3) 4 Good Right Flexion (S2) 4 Good Extension (L3) 4 Good Ankle/Foot Strength Ankle and Foot Manual Muscle Testing Left Dorsiflexion (L4) 5 Normal Inversion 5 Normal Eversion (S1) 5 Normal Right Dorsiflexion (L4) 5 Normal Inversion 5 Normal Eversion (S1) 5 Normal Toe Strength Toe Manual Muscle Testing Left Great Toe Extension 5 Normal Right Great Toe Extension 5 Normal PT-OP-Q Treatments Start: 07/22/20 08:29 Freq: Status: Active Protocol: Document 08/28/20 08:15 MB (Rec: 08/28/20 08:54 MB [id number]) Therapeutic Exercises Supine Exercises Pelvic tilt with abdominal drawing in Comments 10 reps slowly with cues and demo Hamstring stretch Side bilateral Comments 30 sec hold each leg, opposite leg straight, AP Sitting Exercises Ankle eversion and DF with band Side bilateral Resistance Level 1, light blue band Comments 10 reps slowly Clam in sitting Side bilateral Resistance Level 1, light blue band Comments 10 reps slowly, squeeze glutes first Thoracic rotation Side bilateral Comments Hands on opposite shoulders, breath end-range 3 reps both sides Hip rotator stretch Sitting Exercise Name reviewed HEP Side bilateral Comments 30 sec hold, 1 rep each side Hamstring stretch Sitting Exercise Name reviewed HEP Side bilateral Comments 30 sec hold, 2 reps each side LAQ Side bilateral Resistance Level 1 band Comments 10 reps, alternating Standing Exercises sit<> stands Standing Exercise Name Purple ball between knees Comments 10 reps, cues to lightly push up and not plop back racquetball self STMs at wall Standing Exercise Name Intrascapular muscles, glutes, use of sock Side bilateral PT-OP-T Assessment and Plan Start: 07/22/20 08:29 Freq: Status: Active Protocol: Document 08/28/20 08:15 MB (Rec: 08/28/20 08:54 MB [id number]) Physical Therapy Assessment Rehab Potential Rehabilitation Potential Fair Evaluation Complexity Number of Personal Factors/Comorbidities 1-2 Number of Body Systems Impaired 1-2 Clinical Presentation at Evaluation Evolving Impairments Impairments Activity Tolerance,Balance, Functional Activities, Functional Mobility,Gait,Pain, Posture,ROM,Soft Tissue Mobility,Strength Other Impairments Personal factors include not continuing PT exercises for her back that were provided in the past that she states were helpful. Body systems affected include musculoskeletal. Her clinical presentation is evolving in setting of progressive changes to her spine per MRI 2019 and 2012 and noticeable spinal degnerative changes on PT eval today. Other Concerns Fall Risk Yes Goals 4 Dairy Consultant Goal (LTG) Pt will gait train at least 1200 feet without AD in 6 minutes to improve community ambulation by 09/22/20. LTG Duration 8 weeks Three Dairy Consultant Goal (LTG) Pt will be able to get off the floor with UE support and superv to allow safe floor transfers if needed at home by 09/22/20. LTG Duration 8 weeks Two Mcc Goal (LTG) Pt will perform 8 reps sit to stand without UE support in 30 sec to reflect improved functional strength by 09/22/20 . LTG Duration 8 weeks One Mcc Goal (LTG) Pt will perform progressive HEP with I including pelvic realignment, flexibility, breathing, core and LE strengthening and balance exercises to improve functional mobility by 09/22/20 . 08/28/20: Daily: hip rotator, hamstring stretches, thoracic rotation, pelvic realignment exercises; 3x/wk LAQ strengthening with band, ankle eversion and DF with band, clamshell strengthening with band in sitting, racquet ball massages LTG Duration 8 weeks Assessment Summary Assessment Reviewed all HEP exercises and revised HEP today. Reduced exercises and divided them up. Follow per progression below. Physical Therapy Plan Frequency and Duration Frequency of Treatment 2x/Week Duration of Treatment 8 weeks Plan of Care Start Date 07/23/20 Plan of Care End Date 09/22/20 Therapeutic Interventions Therapeutic Interventions Aquatic Therapy,Balance Training,Canalithic Repositioning,Gait Training, Home Exercise Program,Joint Mobilizations,Manual Therapy, Neuromuscular Re-education, Patient/Caregiver Education, Self-Care/Home Management,Soft Tissue Mobilization,Taping, Therapeutic Activities, Therapeutic Exercises Modalities Cold Pack/Ice Massage,Hot Packs Next Visit Focus/Plan Next Note Type Treatment Note Next Visit Plan FUTURE TX: practice getting up off the floor. Add Elias stretch, core progression, ergonomics/body mechanics training and balance exercise
--- NOTE | 2020-09-04 09:47 | PT.OTN ---
Current Diagnoses Other idiopathic scoliosis, site unspecified (09/04/20) Spondylosis without myelopathy or radiculopathy, lumbosacral region (09/04/20) Other symptoms and signs involving the musculoskeletal system (09/04/20) Physical Therapy Treatment Note PT-OP-A Visit Information Start: 07/22/20 08:29 Freq: Status: Active Protocol: Document 09/04/20 09:06 MB (Rec: 09/04/20 09:35 MB [id number]) Out-Patient Physical Therapy Visit Information Visit Information Visit Type Treatment Note Visit Note Medicare [place] Visit Start Time 09:06 Visit Stop Time 09:45 Total Visit Minutes 39 Visit Number 9 PT-OP-B Current Condition Start: 07/22/20 08:29 Freq: Status: Active Protocol: Document 07/23/20 09:01 MB (Rec: 07/23/20 09:12 MB [id number]) Current Condition History of Current Condition Onset Date 1 year leg weakness Current Complaints Leg weakness with sitting, trouble getting up, back discomfort History of Current Condition Pt reports that getting up off the toilet is difficult. She has trouble getting on and off the power boat. She has to use her hands to stand up d/t leg weakness. Pt has had PT in the past for her back but she did not con't with exercises. There is no reason for this, maybe just forgetting. She doesn't feel safe enough to bike outside and tries to walk but has weakness. Pt denies numbness and tingling in her legs. Pt reports 4-5/10 back across her LB. She reports sitting at her computer longer than 10 minutes is a problem. Pt reports that her last fall was two years ago. She broke her right forearm. She tripped over her 's shoes in the house. Prior Treatments and Tests PT in the past 10 years for back pain, MRI lumbar spine : moderate levoconvex scoliosis and multiple levels of lumbar spine degenerative change are seen Treatment Goals Patient/Caregiver Goals To increase leg strength and how to get off the floor if she falls, to relieve back pain PT-OP-C Subjective Start: 07/22/20 08:29 Freq: Status: Active Protocol: Document 09/04/20 09:06 MB (Rec: 09/04/20 09:35 MB [id number]) OP-PT Subjective Patient Comments Patient Comments Pt states that she has had company. She asks about riding her outdoor bike and then states that she does not feel comfortable biking. She had a stationary bike in the past but it became a clothes card hanger . Her back is okay today. PT-OP-G Mobility & Gait Start: 07/22/20 08:29 Freq: Status: Active Protocol: Document 07/23/20 09:01 MB (Rec: 07/23/20 11:15 MB [id number]) OP Gait Assessment Gait Gait Assistance Required: Independent Distance (Feet) 50 Able to Maintain Weight Bearing Status Yes During Gait Assistive Devices Assistive Device None Orthotic/Prosthetic Devices or Brace: No Gait Deviations General Gait Pattern Flexed Trunk,Narrow Based Gait Factors Limiting Gait Function Factors Limiting Gait Function Limited Range of Motion,Poor Balance Comments Gait Comments Pt presents with narrow SABRINA, spinal changes as noted in postural assessment below, decreased arm swing with gait PT-OP-J Posture/Palpation/Skin Start: 07/22/20 08:29 Freq: Status: Active Protocol: Document 07/23/20 09:01 MB (Rec: 07/23/20 11:15 MB [id number]) Posture Evaluation Comments Posture Comments This date, pt is unable to stand up from the chair without UE support Standing posture with shoes on : Dowager's hump, anterior tilt pelvis, right iliac crest mildly higher than the left, right breast lower than the left and pt does report remote history of some soft tissue removed on left breast, spinal curvature changes thoracic spine with convexity on the right making scapular position more elevated right compared to left, narrow SABRINA and B great toe valgus, greater on the right. PT-OP-K Range of Motion Start: 07/22/20 08:29 Freq: Status: Active Protocol: Document 07/23/20 09:01 MB (Rec: 07/23/20 11:15 MB [id number]) Wrist Goniometric Range of Motion ROM Limitations Comments Right wrist bony changes and pt reports old fracture and surgery PT-OP-M Strength Start: 07/22/20 08:29 Freq: Status: Active Protocol: Document 07/23/20 09:01 MB (Rec: 07/23/20 11:15 MB [id number]) Hip Strength Hip Manual Muscle Testing Left Flexion (L2) 4 Good Abduction 4 Good Adduction 3+ Fair+ Right Flexion (L2) 4 Good Abduction 4 Good Adduction 4 Good Knee Strength Knee Manual Muscle Testing Left Flexion (S2) 4 Good Extension (L3) 4 Good Right Flexion (S2) 4 Good Extension (L3) 4 Good Ankle/Foot Strength Ankle and Foot Manual Muscle Testing Left Dorsiflexion (L4) 5 Normal Inversion 5 Normal Eversion (S1) 5 Normal Right Dorsiflexion (L4) 5 Normal Inversion 5 Normal Eversion (S1) 5 Normal Toe Strength Toe Manual Muscle Testing Left Great Toe Extension 5 Normal Right Great Toe Extension 5 Normal PT-OP-Q Treatments Start: 07/22/20 08:29 Freq: Status: Active Protocol: Document 09/04/20 09:06 MB (Rec: 09/04/20 09:35 MB [id number]) Cardio Equipment Bicycle (Upright) Duration (Minutes) 8 Resistance 9 Seat Position Lowest Therapeutic Exercises Supine Exercises Elias stretch Side bilateral Comments 30 sec hold B Pelvic tilt with abdominal drawing in Comments Performed before Elias stretch today Sitting Exercises Rolling pin Comments See saw motion, B thighs, leg straight Therapeutic Activity Therapeutic Activity Getting on and off the floor Comments Cues to prepare: yoga mat on floor and pt turns, bends knees and reaches with hands and then gets on all fours. Next, hands up on chair and then right leg forward and cues for pushing through it, increased effort Extensive talk and ed before and after for performance Manual Therapy Treatment Other Other Manual Treatments Pt kneeling on wedge and leaning over plinth: STM B thoracolumbar paraspinals, hip rotators and QL and pt responds well PT-OP-T Assessment and Plan Start: 07/22/20 08:29 Freq: Status: Active Protocol: Document 09/04/20 09:06 MB (Rec: 09/04/20 09:35 MB [id number]) Physical Therapy Assessment Rehab Potential Rehabilitation Potential Fair Evaluation Complexity Number of Personal Factors/Comorbidities 1-2 Number of Body Systems Impaired 1-2 Clinical Presentation at Evaluation Evolving Impairments Impairments Activity Tolerance,Balance, Functional Activities, Functional Mobility,Gait,Pain, Posture,ROM,Soft Tissue Mobility,Strength Other Impairments Personal factors include not continuing PT exercises for her back that were provided in the past that she states were helpful. Body systems affected include musculoskeletal. Her clinical presentation is evolving in setting of progressive changes to her spine per MRI 2019 and 2012 and noticeable spinal degnerative changes on PT eval today. Other Concerns Fall Risk Yes Goals 4 Group Home Goal (LTG) Pt will gait train at least 1200 feet without AD in 6 minutes to improve community ambulation by 09/22/20. LTG Duration 8 weeks Three Group Home Goal (LTG) Pt will be able to get off the floor with UE support and superv to allow safe floor transfers if needed at home by 09/22/20. LTG Duration 8 weeks Two Sales Service Assistant Goal (LTG) Pt will perform 8 reps sit to stand without UE support in 30 sec to reflect improved functional strength by 09/22/20 . LTG Duration 8 weeks One Group Home Goal (LTG) Pt will perform progressive HEP with I including pelvic realignment, flexibility, breathing, core and LE strengthening and balance exercises to improve functional mobility by 09/22/20 . 08/28/20: Daily: hip rotator, hamstring stretches, thoracic rotation, pelvic realignment exercises; 3x/wk LAQ strengthening with band, ankle eversion and DF with band, clamshell strengthening with band in sitting, racquet ball massages LTG Duration 8 weeks Assessment Summary Assessment Pt is still not performing exercises consistently at home . She is able to get up off the yoga mat on floor with support on chair today with hands and right leg forward, cues to perform. It requires increased effort. Progressed exercises today and self- massage. Physical Therapy Plan Frequency and Duration Frequency of Treatment 2x/Week Duration of Treatment 8 weeks Plan of Care Start Date 07/23/20 Plan of Care End Date 09/22/20 Therapeutic Interventions Therapeutic Interventions Aquatic Therapy,Balance Training,Canalithic Repositioning,Gait Training, Home Exercise Program,Joint Mobilizations,Manual Therapy, Neuromuscular Re-education, Patient/Caregiver Education, Self-Care/Home Management,Soft Tissue Mobilization,Taping, Therapeutic Activities, Therapeutic Exercises Modalities Cold Pack/Ice Massage,Hot Packs Next Visit Focus/Plan Next Note Type Treatment Note Next Visit Plan Consider wall squats, core progression, ergonomics/body mechanics training and balance exercise
--- NOTE | 2020-09-08 09:23 | PT-OP ANOTE ---
Pt no shows to appointment. PT calls pt who is unvailable. Left message with next appointment time and date.
--- NOTE | 2020-09-11 09:40 | PT.OTN ---
Current Diagnoses Other idiopathic scoliosis, site unspecified (09/11/20) Spondylosis without myelopathy or radiculopathy, lumbosacral region (09/11/20) Other symptoms and signs involving the musculoskeletal system (09/11/20) Physical Therapy Treatment Note PT-OP-A Visit Information Start: 07/22/20 08:29 Freq: Status: Active Protocol: Document 09/11/20 09:02 MB (Rec: 09/11/20 09:39 MB [id number]) Out-Patient Physical Therapy Visit Information Visit Information Visit Type Progress Note Visit Note Medicare Regence Visit Start Time 09:02 Visit Stop Time 09:40 Total Visit Minutes 38 Visit Number 10 PT-OP-B Current Condition Start: 07/22/20 08:29 Freq: Status: Active Protocol: Document 07/23/20 09:01 MB (Rec: 07/23/20 09:12 MB [id number]) Current Condition History of Current Condition Onset Date 1 year leg weakness Current Complaints Leg weakness with sitting, trouble getting up, back discomfort History of Current Condition Pt reports that getting up off the toilet is difficult. She has trouble getting on and off the power boat. She has to use her hands to stand up d/t leg weakness. Pt has had PT in the past for her back but she did not con't with exercises. There is no reason for this, maybe just forgetting. She doesn't feel safe enough to bike outside and tries to walk but has weakness. Pt denies numbness and tingling in her legs. Pt reports 4-5/10 back across her LB. She reports sitting at her computer longer than 10 minutes is a problem. Pt reports that her last fall was two years ago. She broke her right forearm. She tripped over her 's shoes in the house. Prior Treatments and Tests PT in the past 10 years for back pain, MRI lumbar spine : moderate levoconvex scoliosis and multiple levels of lumbar spine degenerative change are seen Treatment Goals Patient/Caregiver Goals To increase leg strength and how to get off the floor if she falls, to relieve back pain PT-OP-C Subjective Start: 07/22/20 08:29 Freq: Status: Active Protocol: Document 09/11/20 09:02 MB (Rec: 09/11/20 09:39 MB [id number]) OP-PT Subjective Patient Comments Patient Comments Pt states that she thought her last appointment was a day later and she hated to miss it . PT-OP-G Mobility & Gait Start: 07/22/20 08:29 Freq: Status: Active Protocol: Document 07/23/20 09:01 MB (Rec: 07/23/20 11:15 MB [id number]) OP Gait Assessment Gait Gait Assistance Required: Independent Distance (Feet) 50 Able to Maintain Weight Bearing Status Yes During Gait Assistive Devices Assistive Device None Orthotic/Prosthetic Devices or Brace: No Gait Deviations General Gait Pattern Flexed Trunk,Narrow Based Gait Factors Limiting Gait Function Factors Limiting Gait Function Limited Range of Motion,Poor Balance Comments Gait Comments Pt presents with narrow SABRINA, spinal changes as noted in postural assessment below, decreased arm swing with gait PT-OP-J Posture/Palpation/Skin Start: 07/22/20 08:29 Freq: Status: Active Protocol: Document 07/23/20 09:01 MB (Rec: 07/23/20 11:15 MB [id number]) Posture Evaluation Comments Posture Comments This date, pt is unable to stand up from the chair without UE support Standing posture with shoes on : Dowager's hump, anterior tilt pelvis, right iliac crest mildly higher than the left, right breast lower than the left and pt does report remote history of some soft tissue removed on left breast, spinal curvature changes thoracic spine with convexity on the right making scapular position more elevated right compared to left, narrow SABRINA and B great toe valgus, greater on the right. PT-OP-K Range of Motion Start: 07/22/20 08:29 Freq: Status: Active Protocol: Document 07/23/20 09:01 MB (Rec: 07/23/20 11:15 MB [id number]) Wrist Goniometric Range of Motion ROM Limitations Comments Right wrist bony changes and pt reports old fracture and surgery PT-OP-M Strength Start: 07/22/20 08:29 Freq: Status: Active Protocol: Document 07/23/20 09:01 MB (Rec: 07/23/20 11:15 MB [id number]) Hip Strength Hip Manual Muscle Testing Left Flexion (L2) 4 Good Abduction 4 Good Adduction 3+ Fair+ Right Flexion (L2) 4 Good Abduction 4 Good Adduction 4 Good Knee Strength Knee Manual Muscle Testing Left Flexion (S2) 4 Good Extension (L3) 4 Good Right Flexion (S2) 4 Good Extension (L3) 4 Good Ankle/Foot Strength Ankle and Foot Manual Muscle Testing Left Dorsiflexion (L4) 5 Normal Inversion 5 Normal Eversion (S1) 5 Normal Right Dorsiflexion (L4) 5 Normal Inversion 5 Normal Eversion (S1) 5 Normal Toe Strength Toe Manual Muscle Testing Left Great Toe Extension 5 Normal Right Great Toe Extension 5 Normal PT-OP-Q Treatments Start: 07/22/20 08:29 Freq: Status: Active Protocol: Document 09/11/20 09:02 MB (Rec: 09/11/20 09:39 MB [id number]) Cardio Equipment Bicycle (Upright) Duration (Minutes) 10 Resistance 6 Seat Position 2 Therapeutic Exercises Standing Exercises sit<> stands Standing Exercise Name Purple ball between knees Comments 8 reps without UE support in 30 sec Other Exercises Verbally reviewed all HEP exercises Comments Performed today during progress note Therapeutic Activity Therapeutic Activity Getting on and off the floor Comments 42 sec fist rep and see comments under goals Second rep: left hand on chair to get down and then back up on chair to stand, right foot in front: 22 sec Gait Training Gait Activity 6MWT Comments See comments under goal today, increased distance for goal as she performed well Similar gait pattern throughout treatment when walking in clinic for different tasks PT-OP-T Assessment and Plan Start: 07/22/20 08:29 Freq: Status: Active Protocol: Document 09/11/20 09:02 MB (Rec: 09/11/20 09:39 MB [id number]) Physical Therapy Assessment Rehab Potential Rehabilitation Potential Fair Evaluation Complexity Number of Personal Factors/Comorbidities 1-2 Number of Body Systems Impaired 1-2 Clinical Presentation at Evaluation Evolving Impairments Impairments Activity Tolerance,Balance, Functional Activities, Functional Mobility,Gait,Pain, Posture,ROM,Soft Tissue Mobility,Strength Other Impairments Personal factors include not continuing PT exercises for her back that were provided in the past that she states were helpful. Body systems affected include musculoskeletal. Her clinical presentation is evolving in setting of progressive changes to her spine per MRI 2019 and 2012 and noticeable spinal degnerative changes on PT eval today. Other Concerns Fall Risk Yes Goals 4 Facility Maintenance Supervisor Goal (LTG) Pt will gait train at least 1500 feet without AD in 6 minutes to improve community ambulation by 10/08/20. 09/11/20: Pt gait trains 1385 feet in 6 minutes. She is winded and has one scuffing of right foot on left with gait. Updated goal for 1500 feet in 6 minutes as she surpassed the original goal of 1200 feet LTG Duration 4 weeks Three Shelter Goal (LTG) Pt will be able to get off the floor with UE support in less than 15 sec to allow safe floor transfers if needed at home by 10/08/20. 09/11/20: Pt is able to get down on yoga mat and stand back up with right foot in front and left hand on chair in 42 sec. Second rep, held onto chair on the way down and 22 sec whole transfer LTG Duration 4 weeks Two Shelter Goal (LTG) Pt will perform 10 reps sit to stand without UE support in 30 sec to reflect improved functional strength by 10/08/20 . 09/11/20: Purple ball between knees: 8 reps and so updated goals for 10 reps as she met the 8 reps originally set of the goal LTG Duration 4 weeks One Facility Maintenance Supervisor Goal (LTG) Pt will perform progressive HEP with I including pelvic realignment, flexibility, breathing, core and LE strengthening and balance exercises to improve functional mobility by 10/08/20 . 09/11/20: Pt states that she could be doing her exercises more. She has not inquired about the pool yet. HEP as follows: Daily: hip rotator, hamstring stretches, thoracic rotation, pelvic realignment exercises as needed; 3x/wk LAQ strengthening with band, ankle eversion and DF with band, clamshell strengthening with band in sitting, racquet ball massages LTG Duration 4 weeks Assessment Summary Assessment Pt has progressed towards sit to stands, 6MWT, floor transfers and HEP since starting PT. She is not doing her exercises as much as she could be. She will benefit from ongoing PT for strengthening, balance, gait and manual work. Physical Therapy Plan Frequency and Duration Frequency of Treatment 2x/Week Duration of Treatment 4 weeks Plan of Care Start Date 09/11/20 Plan of Care End Date 10/08/20 Therapeutic Interventions Therapeutic Interventions Aquatic Therapy,Balance Training,Canalithic Repositioning,Gait Training, Home Exercise Program,Joint Mobilizations,Manual Therapy, Neuromuscular Re-education, Patient/Caregiver Education, Self-Care/Home Management,Soft Tissue Mobilization,Taping, Therapeutic Activities, Therapeutic Exercises Modalities Cold Pack/Ice Massage,Hot Packs Next Visit Focus/Plan Next Note Type Treatment Note Next Visit Plan Consider wall squats, core progression, ergonomics/body mechanics training and balance exercise
--- NOTE | 2020-09-16 09:45 | PT.OTN ---
Current Diagnoses Other idiopathic scoliosis, site unspecified (09/16/20) Spondylosis without myelopathy or radiculopathy, lumbosacral region (09/16/20) Other symptoms and signs involving the musculoskeletal system (09/16/20) Physical Therapy Treatment Note PT-OP-A Visit Information Start: 07/22/20 08:29 Freq: Status: Active Protocol: Document 09/16/20 09:03 MB (Rec: 09/16/20 09:45 MB [id number]) Out-Patient Physical Therapy Visit Information Visit Information Visit Type Treatment Note Visit Note Medicare Regence Visit Start Time 09:03 Visit Stop Time 09:43 Total Visit Minutes 40 Visit Number 11 PT-OP-B Current Condition Start: 07/22/20 08:29 Freq: Status: Active Protocol: Document 07/23/20 09:01 MB (Rec: 07/23/20 09:12 MB [id number]) Current Condition History of Current Condition Onset Date 1 year leg weakness Current Complaints Leg weakness with sitting, trouble getting up, back discomfort History of Current Condition Pt reports that getting up off the toilet is difficult. She has trouble getting on and off the power boat. She has to use her hands to stand up d/t leg weakness. Pt has had PT in the past for her back but she did not con't with exercises. There is no reason for this, maybe just forgetting. She doesn't feel safe enough to bike outside and tries to walk but has weakness. Pt denies numbness and tingling in her legs. Pt reports 4-5/10 back across her LB. She reports sitting at her computer longer than 10 minutes is a problem. Pt reports that her last fall was two years ago. She broke her right forearm. She tripped over her 's shoes in the house. Prior Treatments and Tests PT in the past 10 years for back pain, MRI lumbar spine : moderate levoconvex scoliosis and multiple levels of lumbar spine degenerative change are seen Treatment Goals Patient/Caregiver Goals To increase leg strength and how to get off the floor if she falls, to relieve back pain PT-OP-C Subjective Start: 07/22/20 08:29 Freq: Status: Active Protocol: Document 09/16/20 09:03 MB (Rec: 09/16/20 09:45 MB [id number]) OP-PT Subjective Patient Comments Patient Comments Pt states that she is feeling okay. PT-OP-G Mobility & Gait Start: 07/22/20 08:29 Freq: Status: Active Protocol: Document 07/23/20 09:01 MB (Rec: 07/23/20 11:15 MB [id number]) OP Gait Assessment Gait Gait Assistance Required: Independent Distance (Feet) 50 Able to Maintain Weight Bearing Status Yes During Gait Assistive Devices Assistive Device None Orthotic/Prosthetic Devices or Brace: No Gait Deviations General Gait Pattern Flexed Trunk,Narrow Based Gait Factors Limiting Gait Function Factors Limiting Gait Function Limited Range of Motion,Poor Balance Comments Gait Comments Pt presents with narrow SABRINA, spinal changes as noted in postural assessment below, decreased arm swing with gait PT-OP-J Posture/Palpation/Skin Start: 07/22/20 08:29 Freq: Status: Active Protocol: Document 07/23/20 09:01 MB (Rec: 07/23/20 11:15 MB [id number]) Posture Evaluation Comments Posture Comments This date, pt is unable to stand up from the chair without UE support Standing posture with shoes on : Dowager's hump, anterior tilt pelvis, right iliac crest mildly higher than the left, right breast lower than the left and pt does report remote history of some soft tissue removed on left breast, spinal curvature changes thoracic spine with convexity on the right making scapular position more elevated right compared to left, narrow SABRINA and B great toe valgus, greater on the right. PT-OP-K Range of Motion Start: 07/22/20 08:29 Freq: Status: Active Protocol: Document 07/23/20 09:01 MB (Rec: 07/23/20 11:15 MB [id number]) Wrist Goniometric Range of Motion ROM Limitations Comments Right wrist bony changes and pt reports old fracture and surgery PT-OP-M Strength Start: 07/22/20 08:29 Freq: Status: Active Protocol: Document 07/23/20 09:01 MB (Rec: 07/23/20 11:15 MB [id number]) Hip Strength Hip Manual Muscle Testing Left Flexion (L2) 4 Good Abduction 4 Good Adduction 3+ Fair+ Right Flexion (L2) 4 Good Abduction 4 Good Adduction 4 Good Knee Strength Knee Manual Muscle Testing Left Flexion (S2) 4 Good Extension (L3) 4 Good Right Flexion (S2) 4 Good Extension (L3) 4 Good Ankle/Foot Strength Ankle and Foot Manual Muscle Testing Left Dorsiflexion (L4) 5 Normal Inversion 5 Normal Eversion (S1) 5 Normal Right Dorsiflexion (L4) 5 Normal Inversion 5 Normal Eversion (S1) 5 Normal Toe Strength Toe Manual Muscle Testing Left Great Toe Extension 5 Normal Right Great Toe Extension 5 Normal PT-OP-Q Treatments Start: 07/22/20 08:29 Freq: Status: Active Protocol: Document 09/16/20 09:03 MB (Rec: 09/16/20 09:45 MB [id number]) Cardio Equipment Bicycle (Upright) Duration (Minutes) 10 Resistance 8 Seat Position 2 Manual Therapy Treatment Other Other Manual Treatments Pt kneeling on wedge and leaning over plinth: STM B thoracolumbar paraspinals, hip rotators and QL and pt responds well PT-OP-T Assessment and Plan Start: 07/22/20 08:29 Freq: Status: Active Protocol: Document 09/16/20 09:03 MB (Rec: 09/16/20 09:45 MB [id number]) Physical Therapy Assessment Rehab Potential Rehabilitation Potential Fair Evaluation Complexity Number of Personal Factors/Comorbidities 1-2 Number of Body Systems Impaired 1-2 Clinical Presentation at Evaluation Evolving Impairments Impairments Activity Tolerance,Balance, Functional Activities, Functional Mobility,Gait,Pain, Posture,ROM,Soft Tissue Mobility,Strength Other Impairments Personal factors include not continuing PT exercises for her back that were provided in the past that she states were helpful. Body systems affected include musculoskeletal. Her clinical presentation is evolving in setting of progressive changes to her spine per MRI 2019 and 2012 and noticeable spinal degnerative changes on PT eval today. Other Concerns Fall Risk Yes Goals 4 Horizontal Boring Mill Operator Goal (LTG) Pt will gait train at least 1500 feet without AD in 6 minutes to improve community ambulation by 10/08/20. 09/11/20: Pt gait trains 1385 feet in 6 minutes. She is winded and has one scuffing of right foot on left with gait. Updated goal for 1500 feet in 6 minutes as she surpassed the original goal of 1200 feet LTG Duration 4 weeks Three [facility] Goal (LTG) Pt will be able to get off the floor with UE support in less than 15 sec to allow safe floor transfers if needed at home by 10/08/20. 09/11/20: Pt is able to get down on yoga mat and stand back up with right foot in front and left hand on chair in 42 sec. Second rep, held onto chair on the way down and 22 sec whole transfer LTG Duration 4 weeks Two [facility]ci Goal (LTG) Pt will perform 10 reps sit to stand without UE support in 30 sec to reflect improved functional strength by 10/08/20 . 09/11/20: Purple ball between knees: 8 reps and so updated goals for 10 reps as she met the 8 reps originally set of the goal LTG Duration 4 weeks One [facility] Goal (LTG) Pt will perform progressive HEP with I including pelvic realignment, flexibility, breathing, core and LE strengthening and balance exercises to improve functional mobility by 10/08/20 . 09/11/20: Pt states that she could be doing her exercises more. She has not inquired about the pool yet. HEP as follows: Daily: hip rotator, hamstring stretches, thoracic rotation, pelvic realignment exercises as needed; 3x/wk LAQ strengthening with band, ankle eversion and DF with band, clamshell strengthening with band in sitting, racquet ball massages LTG Duration 4 weeks Assessment Summary Assessment Pt progresses on the bike today. Manual work today. Will progress exercises next treatment date. Physical Therapy Plan Frequency and Duration Frequency of Treatment 2x/Week Duration of Treatment 4 weeks Plan of Care Start Date 09/11/20 Plan of Care End Date 10/08/20 Therapeutic Interventions Therapeutic Interventions Aquatic Therapy,Balance Training,Canalithic Repositioning,Gait Training, Home Exercise Program,Joint Mobilizations,Manual Therapy, Neuromuscular Re-education, Patient/Caregiver Education, Self-Care/Home Management,Soft Tissue Mobilization,Taping, Therapeutic Activities, Therapeutic Exercises Modalities Cold Pack/Ice Massage,Hot Packs Next Visit Focus/Plan Next Note Type Treatment Note Next Visit Plan Similar: wall squats, core progression, ergonomics/body mechanics training and balance exercise
--- NOTE | 2020-09-23 09:41 | PT.OTN ---
Current Diagnoses Other idiopathic scoliosis, site unspecified (09/23/20) Spondylosis without myelopathy or radiculopathy, lumbosacral region (09/23/20) Other symptoms and signs involving the musculoskeletal system (09/23/20) Physical Therapy Treatment Note PT-OP-A Visit Information Start: 07/22/20 08:29 Freq: Status: Active Protocol: Document 09/23/20 09:02 MB (Rec: 09/23/20 09:40 MB [id number]) Out-Patient Physical Therapy Visit Information Visit Information Visit Type Treatment Note Visit Note Medicare [place] Visit Start Time 09:02 Visit Stop Time 09:41 Total Visit Minutes 39 Visit Number 12 PT-OP-B Current Condition Start: 07/22/20 08:29 Freq: Status: Active Protocol: Document 07/23/20 09:01 MB (Rec: 07/23/20 09:12 MB [id number]) Current Condition History of Current Condition Onset Date 1 year leg weakness Current Complaints Leg weakness with sitting, trouble getting up, back discomfort History of Current Condition Pt reports that getting up off the toilet is difficult. She has trouble getting on and off the power boat. She has to use her hands to stand up d/t leg weakness. Pt has had PT in the past for her back but she did not con't with exercises. There is no reason for this, maybe just forgetting. She doesn't feel safe enough to bike outside and tries to walk but has weakness. Pt denies numbness and tingling in her legs. Pt reports 4-5/10 back across her LB. She reports sitting at her computer longer than 10 minutes is a problem. Pt reports that her last fall was two years ago. She broke her right forearm. She tripped over her 's shoes in the house. Prior Treatments and Tests PT in the past 10 years for back pain, MRI lumbar spine : moderate levoconvex scoliosis and multiple levels of lumbar spine degenerative change are seen Treatment Goals Patient/Caregiver Goals To increase leg strength and how to get off the floor if she falls, to relieve back pain PT-OP-C Subjective Start: 07/22/20 08:29 Freq: Status: Active Protocol: Document 09/23/20 09:02 MB (Rec: 09/23/20 09:40 MB [id number]) OP-PT Subjective Patient Comments Patient Comments Pt states that she is feeling fine. PT-OP-G Mobility & Gait Start: 07/22/20 08:29 Freq: Status: Active Protocol: Document 07/23/20 09:01 MB (Rec: 07/23/20 11:15 MB [id number]) OP Gait Assessment Gait Gait Assistance Required: Independent Distance (Feet) 50 Able to Maintain Weight Bearing Status Yes During Gait Assistive Devices Assistive Device None Orthotic/Prosthetic Devices or Brace: No Gait Deviations General Gait Pattern Flexed Trunk,Narrow Based Gait Factors Limiting Gait Function Factors Limiting Gait Function Limited Range of Motion,Poor Balance Comments Gait Comments Pt presents with narrow SABRINA, spinal changes as noted in postural assessment below, decreased arm swing with gait PT-OP-J Posture/Palpation/Skin Start: 07/22/20 08:29 Freq: Status: Active Protocol: Document 07/23/20 09:01 MB (Rec: 07/23/20 11:15 MB [id number]) Posture Evaluation Comments Posture Comments This date, pt is unable to stand up from the chair without UE support Standing posture with shoes on : Dowager's hump, anterior tilt pelvis, right iliac crest mildly higher than the left, right breast lower than the left and pt does report remote history of some soft tissue removed on left breast, spinal curvature changes thoracic spine with convexity on the right making scapular position more elevated right compared to left, narrow SABRINA and B great toe valgus, greater on the right. PT-OP-K Range of Motion Start: 07/22/20 08:29 Freq: Status: Active Protocol: Document 07/23/20 09:01 MB (Rec: 07/23/20 11:15 MB [id number]) Wrist Goniometric Range of Motion ROM Limitations Comments Right wrist bony changes and pt reports old fracture and surgery PT-OP-M Strength Start: 07/22/20 08:29 Freq: Status: Active Protocol: Document 07/23/20 09:01 MB (Rec: 07/23/20 11:15 MB [id number]) Hip Strength Hip Manual Muscle Testing Left Flexion (L2) 4 Good Abduction 4 Good Adduction 3+ Fair+ Right Flexion (L2) 4 Good Abduction 4 Good Adduction 4 Good Knee Strength Knee Manual Muscle Testing Left Flexion (S2) 4 Good Extension (L3) 4 Good Right Flexion (S2) 4 Good Extension (L3) 4 Good Ankle/Foot Strength Ankle and Foot Manual Muscle Testing Left Dorsiflexion (L4) 5 Normal Inversion 5 Normal Eversion (S1) 5 Normal Right Dorsiflexion (L4) 5 Normal Inversion 5 Normal Eversion (S1) 5 Normal Toe Strength Toe Manual Muscle Testing Left Great Toe Extension 5 Normal Right Great Toe Extension 5 Normal PT-OP-Q Treatments Start: 07/22/20 08:29 Freq: Status: Active Protocol: Document 09/23/20 09:02 MB (Rec: 09/23/20 09:40 MB [id number]) Cardio Equipment Bicycle (Upright) Duration (Minutes) 10 Resistance 8 Seat Position 2 Therapeutic Exercises Supine Exercises Core progression Supine Exercise Name Abdominal drawing in, lumbar rotation, HS, knee fall out and bridge Comments Many reps all, band around knees, level 1 for exercise PT-OP-T Assessment and Plan Start: 07/22/20 08:29 Freq: Status: Active Protocol: Document 09/23/20 09:02 MB (Rec: 09/23/20 09:40 MB [id number]) Physical Therapy Assessment Rehab Potential Rehabilitation Potential Fair Evaluation Complexity Number of Personal Factors/Comorbidities 1-2 Number of Body Systems Impaired 1-2 Clinical Presentation at Evaluation Evolving Impairments Impairments Activity Tolerance,Balance, Functional Activities, Functional Mobility,Gait,Pain, Posture,ROM,Soft Tissue Mobility,Strength Other Impairments Personal factors include not continuing PT exercises for her back that were provided in the past that she states were helpful. Body systems affected include musculoskeletal. Her clinical presentation is evolving in setting of progressive changes to her spine per MRI 2019 and 2012 and noticeable spinal degnerative changes on PT eval today. Other Concerns Fall Risk Yes Goals 4 Mentally Impaired Teacher Goal (LTG) Pt will gait train at least 1500 feet without AD in 6 minutes to improve community ambulation by 10/08/20. 09/11/20: Pt gait trains 1385 feet in 6 minutes. She is winded and has one scuffing of right foot on left with gait. Updated goal for 1500 feet in 6 minutes as she surpassed the original goal of 1200 feet LTG Duration 4 weeks Three Mentally Impaired Teacher Goal (LTG) Pt will be able to get off the floor with UE support in less than 15 sec to allow safe floor transfers if needed at home by 10/08/20. 09/11/20: Pt is able to get down on yoga mat and stand back up with right foot in front and left hand on chair in 42 sec. Second rep, held onto chair on the way down and 22 sec whole transfer LTG Duration 4 weeks Two Mentally Impaired Teacher Goal (LTG) Pt will perform 10 reps sit to stand without UE support in 30 sec to reflect improved functional strength by 10/08/20 . 09/11/20: Purple ball between knees: 8 reps and so updated goals for 10 reps as she met the 8 reps originally set of the goal LTG Duration 4 weeks One Assisted Goal (LTG) Pt will perform progressive HEP with I including pelvic realignment, flexibility, breathing, core and LE strengthening and balance exercises to improve functional mobility by 10/08/20 . 09/11/20: Pt states that she could be doing her exercises more. She has not inquired about the pool yet. HEP as follows: Daily: hip rotator, hamstring stretches, thoracic rotation, pelvic realignment exercises as needed; 3x/wk LAQ strengthening with band, ankle eversion and DF with band, clamshell strengthening with band in sitting, racquet ball massages LTG Duration 4 weeks Assessment Summary Assessment Initiated core training today which takes a lot of practice and cueing and pt does perform well. Physical Therapy Plan Frequency and Duration Frequency of Treatment 2x/Week Duration of Treatment 4 weeks Plan of Care Start Date 09/11/20 Plan of Care End Date 10/08/20 Therapeutic Interventions Therapeutic Interventions Aquatic Therapy,Balance Training,Canalithic Repositioning,Gait Training, Home Exercise Program,Joint Mobilizations,Manual Therapy, Neuromuscular Re-education, Patient/Caregiver Education, Self-Care/Home Management,Soft Tissue Mobilization,Taping, Therapeutic Activities, Therapeutic Exercises Modalities Cold Pack/Ice Massage,Hot Packs Next Visit Focus/Plan Next Note Type Treatment Note Next Visit Plan Similar: wall squats, ergonomics/body mechanics training and balance exercise
--- NOTE | 2020-10-02 11:17 | PT.OTN ---
Current Diagnoses Other idiopathic scoliosis, site unspecified (10/02/20) Spondylosis without myelopathy or radiculopathy, lumbosacral region (10/02/20) Other symptoms and signs involving the musculoskeletal system (10/02/20) Physical Therapy Treatment Note PT-OP-A Visit Information Start: 07/22/20 08:29 Freq: Status: Active Protocol: Document 10/02/20 10:32 MB (Rec: 10/02/20 10:48 MB [id number]) Out-Patient Physical Therapy Visit Information Visit Information Visit Type Treatment Note Visit Note Medicare [place] Visit Start Time 10:32 Visit Stop Time 11:15 Total Visit Minutes 43 Visit Number 13 PT-OP-B Current Condition Start: 07/22/20 08:29 Freq: Status: Active Protocol: Document 07/23/20 09:01 MB (Rec: 07/23/20 09:12 MB [id number]) Current Condition History of Current Condition Onset Date 1 year leg weakness Current Complaints Leg weakness with sitting, trouble getting up, back discomfort History of Current Condition Pt reports that getting up off the toilet is difficult. She has trouble getting on and off the power boat. She has to use her hands to stand up d/t leg weakness. Pt has had PT in the past for her back but she did not con't with exercises. There is no reason for this, maybe just forgetting. She doesn't feel safe enough to bike outside and tries to walk but has weakness. Pt denies numbness and tingling in her legs. Pt reports 4-5/10 back across her LB. She reports sitting at her computer longer than 10 minutes is a problem. Pt reports that her last fall was two years ago. She broke her right forearm. She tripped over her 's shoes in the house. Prior Treatments and Tests PT in the past 10 years for back pain, MRI lumbar spine : moderate levoconvex scoliosis and multiple levels of lumbar spine degenerative change are seen Treatment Goals Patient/Caregiver Goals To increase leg strength and how to get off the floor if she falls, to relieve back pain PT-OP-C Subjective Start: 07/22/20 08:29 Freq: Status: Active Protocol: Document 10/02/20 10:32 MB (Rec: 10/02/20 10:49 MB [id number]) OP-PT Subjective Patient Comments Patient Comments Pt states that she is tired. It was a busy 4th at [place]. PT-OP-G Mobility & Gait Start: 07/22/20 08:29 Freq: Status: Active Protocol: Document 07/23/20 09:01 MB (Rec: 07/23/20 11:15 MB [id number]) OP Gait Assessment Gait Gait Assistance Required: Independent Distance (Feet) 50 Able to Maintain Weight Bearing Status Yes During Gait Assistive Devices Assistive Device None Orthotic/Prosthetic Devices or Brace: No Gait Deviations General Gait Pattern Flexed Trunk,Narrow Based Gait Factors Limiting Gait Function Factors Limiting Gait Function Limited Range of Motion,Poor Balance Comments Gait Comments Pt presents with narrow ASBRINA, spinal changes as noted in postural assessment below, decreased arm swing with gait PT-OP-J Posture/Palpation/Skin Start: 07/22/20 08:29 Freq: Status: Active Protocol: Document 07/23/20 09:01 MB (Rec: 07/23/20 11:15 MB [id number]) Posture Evaluation Comments Posture Comments This date, pt is unable to stand up from the chair without UE support Standing posture with shoes on : Dowager's hump, anterior tilt pelvis, right iliac crest mildly higher than the left, right breast lower than the left and pt does report remote history of some soft tissue removed on left breast, spinal curvature changes thoracic spine with convexity on the right making scapular position more elevated right compared to left, narrow SABRINA and B great toe valgus, greater on the right. PT-OP-K Range of Motion Start: 07/22/20 08:29 Freq: Status: Active Protocol: Document 07/23/20 09:01 MB (Rec: 07/23/20 11:15 MB [id number]) Wrist Goniometric Range of Motion ROM Limitations Comments Right wrist bony changes and pt reports old fracture and surgery PT-OP-M Strength Start: 07/22/20 08:29 Freq: Status: Active Protocol: Document 07/23/20 09:01 MB (Rec: 07/23/20 11:15 MB [id number]) Hip Strength Hip Manual Muscle Testing Left Flexion (L2) 4 Good Abduction 4 Good Adduction 3+ Fair+ Right Flexion (L2) 4 Good Abduction 4 Good Adduction 4 Good Knee Strength Knee Manual Muscle Testing Left Flexion (S2) 4 Good Extension (L3) 4 Good Right Flexion (S2) 4 Good Extension (L3) 4 Good Ankle/Foot Strength Ankle and Foot Manual Muscle Testing Left Dorsiflexion (L4) 5 Normal Inversion 5 Normal Eversion (S1) 5 Normal Right Dorsiflexion (L4) 5 Normal Inversion 5 Normal Eversion (S1) 5 Normal Toe Strength Toe Manual Muscle Testing Left Great Toe Extension 5 Normal Right Great Toe Extension 5 Normal PT-OP-Q Treatments Start: 07/22/20 08:29 Freq: Status: Active Protocol: Document 10/02/20 10:32 MB (Rec: 10/02/20 10:48 MB [id number]) Cardio Equipment Bicycle (Upright) Duration (Minutes) 13 Resistance 8 Seat Position 2 Therapeutic Exercises Standing Exercises Wall squats Equipment Used Kids ball between knees Comments Count 1,2,3,4,[address] and 6,7,8,9,[address] up Tandem standing Standing Exercise Name In corner Side bilateral Comments Very challenging for pt with either foot behind Manual Therapy Treatment Other Other Manual Treatments Pt kneeling over wedge and leaning over plinth: STM B thoracolumbar paraspinals, QL and hip rotators Self-Care/Home Management Treatment Education Other Education Handouts about ergonomics for lifting, preparing to lift with hips down, use of legs, golfer's lift, proper sitting position in car and ergonomic set-up at computer workstation PT-OP-T Assessment and Plan Start: 07/22/20 08:29 Freq: Status: Active Protocol: Document 10/02/20 10:32 MB (Rec: 10/02/20 10:48 MB [id number]) Physical Therapy Assessment Rehab Potential Rehabilitation Potential Fair Evaluation Complexity Number of Personal Factors/Comorbidities 1-2 Number of Body Systems Impaired 1-2 Clinical Presentation at Evaluation Evolving Impairments Impairments Activity Tolerance,Balance, Functional Activities, Functional Mobility,Gait,Pain, Posture,ROM,Soft Tissue Mobility,Strength Other Impairments Personal factors include not continuing PT exercises for her back that were provided in the past that she states were helpful. Body systems affected include musculoskeletal. Her clinical presentation is evolving in setting of progressive changes to her spine per MRI 2019 and 2012 and noticeable spinal degnerative changes on PT eval today. Other Concerns Fall Risk Yes Goals 4 Truckman Goal (LTG) Pt will gait train at least 1500 feet without AD in 6 minutes to improve community ambulation by 10/08/20. 09/11/20: Pt gait trains 1385 feet in 6 minutes. She is winded and has one scuffing of right foot on left with gait. Updated goal for 1500 feet in 6 minutes as she surpassed the original goal of 1200 feet LTG Duration 4 weeks Three Truckman Goal (LTG) Pt will be able to get off the floor with UE support in less than 15 sec to allow safe floor transfers if needed at home by 10/08/20. 09/11/20: Pt is able to get down on yoga mat and stand back up with right foot in front and left hand on chair in 42 sec. Second rep, held onto chair on the way down and 22 sec whole transfer LTG Duration 4 weeks Two Long-Term Goal (LTG) Pt will perform 10 reps sit to stand without UE support in 30 sec to reflect improved functional strength by 10/08/20 . 09/11/20: Purple ball between knees: 8 reps and so updated goals for 10 reps as she met the 8 reps originally set of the goal LTG Duration 4 weeks One Long-Term Goal (LTG) Pt will perform progressive HEP with I including pelvic realignment, flexibility, breathing, core and LE strengthening and balance exercises to improve functional mobility by 10/08/20 . 09/11/20: Pt states that she could be doing her exercises more. She has not inquired about the pool yet. HEP as follows: Daily: hip rotator, hamstring stretches, thoracic rotation, pelvic realignment exercises as needed; 3x/wk LAQ strengthening with band, ankle eversion and DF with band, clamshell strengthening with band in sitting, racquet ball massages LTG Duration 4 weeks Assessment Summary Assessment Ed pt in ergonomics today and added balance and wall slide to HEP. Anticipate one more treatment and then d/c in two treatments. Physical Therapy Plan Frequency and Duration Frequency of Treatment 2x/Week Duration of Treatment 4 weeks Plan of Care Start Date 09/11/20 Plan of Care End Date 10/08/20 Therapeutic Interventions Therapeutic Interventions Aquatic Therapy,Balance Training,Canalithic Repositioning,Gait Training, Home Exercise Program,Joint Mobilizations,Manual Therapy, Neuromuscular Re-education, Patient/Caregiver Education, Self-Care/Home Management,Soft Tissue Mobilization,Taping, Therapeutic Activities, Therapeutic Exercises Modalities Cold Pack/Ice Massage,Hot Packs Next Visit Focus/Plan Next Note Type Treatment Note Next Visit Plan Consider manual work and exercise review
--- NOTE | 2020-10-06 11:11 | PT.OTN ---
Current Diagnoses Other idiopathic scoliosis, site unspecified (10/06/20) Spondylosis without myelopathy or radiculopathy, lumbosacral region (10/06/20) Other symptoms and signs involving the musculoskeletal system (10/06/20) Physical Therapy Treatment Note PT-OP-A Visit Information Start: 07/22/20 08:29 Freq: Status: Active Protocol: Document 10/06/20 10:31 MB (Rec: 10/06/20 11:09 MB [id number]) Out-Patient Physical Therapy Visit Information Visit Information Visit Type Treatment Note Visit Note Medicare [place] Visit Start Time 10:31 Visit Stop Time 11:11 Total Visit Minutes 40 Visit Number 14 PT-OP-B Current Condition Start: 07/22/20 08:29 Freq: Status: Active Protocol: Document 07/23/20 09:01 MB (Rec: 07/23/20 09:12 MB [id number]) Current Condition History of Current Condition Onset Date 1 year leg weakness Current Complaints Leg weakness with sitting, trouble getting up, back discomfort History of Current Condition Pt reports that getting up off the toilet is difficult. She has trouble getting on and off the power boat. She has to use her hands to stand up d/t leg weakness. Pt has had PT in the past for her back but she did not con't with exercises. There is no reason for this, maybe just forgetting. She doesn't feel safe enough to bike outside and tries to walk but has weakness. Pt denies numbness and tingling in her legs. Pt reports 4-5/10 back across her LB. She reports sitting at her computer longer than 10 minutes is a problem. Pt reports that her last fall was two years ago. She broke her right forearm. She tripped over her 's shoes in the house. Prior Treatments and Tests PT in the past 10 years for back pain, MRI lumbar spine : moderate levoconvex scoliosis and multiple levels of lumbar spine degenerative change are seen Treatment Goals Patient/Caregiver Goals To increase leg strength and how to get off the floor if she falls, to relieve back pain PT-OP-C Subjective Start: 07/22/20 08:29 Freq: Status: Active Protocol: Document 10/06/20 10:31 MB (Rec: 10/06/20 11:09 MB [id number]) OP-PT Subjective Patient Comments Patient Comments Pt states that she has had a good weekend. PT-OP-G Mobility & Gait Start: 07/22/20 08:29 Freq: Status: Active Protocol: Document 07/23/20 09:01 MB (Rec: 07/23/20 11:15 MB [id number]) OP Gait Assessment Gait Gait Assistance Required: Independent Distance (Feet) 50 Able to Maintain Weight Bearing Status Yes During Gait Assistive Devices Assistive Device None Orthotic/Prosthetic Devices or Brace: No Gait Deviations General Gait Pattern Flexed Trunk,Narrow Based Gait Factors Limiting Gait Function Factors Limiting Gait Function Limited Range of Motion,Poor Balance Comments Gait Comments Pt presents with narrow SABRINA, spinal changes as noted in postural assessment below, decreased arm swing with gait PT-OP-J Posture/Palpation/Skin Start: 07/22/20 08:29 Freq: Status: Active Protocol: Document 07/23/20 09:01 MB (Rec: 07/23/20 11:15 MB [id number]) Posture Evaluation Comments Posture Comments This date, pt is unable to stand up from the chair without UE support Standing posture with shoes on : Dowager's hump, anterior tilt pelvis, right iliac crest mildly higher than the left, right breast lower than the left and pt does report remote history of some soft tissue removed on left breast, spinal curvature changes thoracic spine with convexity on the right making scapular position more elevated right compared to left, narrow SABRINA and B great toe valgus, greater on the right. PT-OP-K Range of Motion Start: 07/22/20 08:29 Freq: Status: Active Protocol: Document 07/23/20 09:01 MB (Rec: 07/23/20 11:15 MB [id number]) Wrist Goniometric Range of Motion ROM Limitations Comments Right wrist bony changes and pt reports old fracture and surgery PT-OP-M Strength Start: 07/22/20 08:29 Freq: Status: Active Protocol: Document 07/23/20 09:01 MB (Rec: 07/23/20 11:15 MB [id number]) Hip Strength Hip Manual Muscle Testing Left Flexion (L2) 4 Good Abduction 4 Good Adduction 3+ Fair+ Right Flexion (L2) 4 Good Abduction 4 Good Adduction 4 Good Knee Strength Knee Manual Muscle Testing Left Flexion (S2) 4 Good Extension (L3) 4 Good Right Flexion (S2) 4 Good Extension (L3) 4 Good Ankle/Foot Strength Ankle and Foot Manual Muscle Testing Left Dorsiflexion (L4) 5 Normal Inversion 5 Normal Eversion (S1) 5 Normal Right Dorsiflexion (L4) 5 Normal Inversion 5 Normal Eversion (S1) 5 Normal Toe Strength Toe Manual Muscle Testing Left Great Toe Extension 5 Normal Right Great Toe Extension 5 Normal PT-OP-Q Treatments Start: 07/22/20 08:29 Freq: Status: Active Protocol: Document 10/06/20 10:31 MB (Rec: 10/06/20 11:09 MB [id number]) Cardio Equipment Bicycle (Upright) Duration (Minutes) 10 Resistance 8 Seat Position 2 Therapeutic Exercises Supine Exercises Core progression Supine Exercise Name Abdominal drawing in, lumbar rotation, HS, knee fall out and bridge Comments 10 reps all exercise except bridge, which is 1 rep, level 1 band around kne Elias stretch Side bilateral Comments 30 sec hold, abdominal drawing in Pelvic tilt with abdominal drawing in Comments Performed several reps today Hamstring stretch Side bilateral Comments AP x20 sec Pelvic realignment exercises Comments Verbally reviewe today Log roll technique Comments Cued pt to perfrom on and off the mat Sitting Exercises Rolling pin Comments Verbally reviewed today Ankle eversion and DF with band Comments Verbally reviewed today Thoracic rotation Comments Verbally reviewed today Hip rotator stretch Comments Verbally reviewed today Hamstring stretch Comments Verbally reviewed today Standing Exercises Wall squats Comments Verbally reviewed today Tandem standing Comments Verbally reviewed today sit<> stands Comments Verbally reviewed today racquetball self STMs at wall Comments Verbally reviewed today Thoracic mobilizatin with kids' ball Comments Verbally reviewed today Other Exercises Verbally reviewed all HEP exercises Comments Revised HEP and provided list today PT-OP-T Assessment and Plan Start: 07/22/20 08:29 Freq: Status: Active Protocol: Document 10/06/20 10:31 MB (Rec: 10/06/20 11:09 MB [id number]) Physical Therapy Assessment Rehab Potential Rehabilitation Potential Fair Evaluation Complexity Number of Personal Factors/Comorbidities 1-2 Number of Body Systems Impaired 1-2 Clinical Presentation at Evaluation Evolving Impairments Impairments Activity Tolerance,Balance, Functional Activities, Functional Mobility,Gait,Pain, Posture,ROM,Soft Tissue Mobility,Strength Other Impairments Personal factors include not continuing PT exercises for her back that were provided in the past that she states were helpful. Body systems affected include musculoskeletal. Her clinical presentation is evolving in setting of progressive changes to her spine per MRI 2019 and 2012 and noticeable spinal degnerative changes on PT eval today. Other Concerns Fall Risk Yes Goals 4 Usp Goal (LTG) Pt will gait train at least 1500 feet without AD in 6 minutes to improve community ambulation by 10/08/20. 09/11/20: Pt gait trains 1385 feet in 6 minutes. She is winded and has one scuffing of right foot on left with gait. Updated goal for 1500 feet in 6 minutes as she surpassed the original goal of 1200 feet LTG Duration 4 weeks Three Usp Goal (LTG) Pt will be able to get off the floor with UE support in less than 15 sec to allow safe floor transfers if needed at home by 10/08/20. 09/11/20: Pt is able to get down on yoga mat and stand back up with right foot in front and left hand on chair in 42 sec. Second rep, held onto chair on the way down and 22 sec whole transfer LTG Duration 4 weeks Two Computer Field Technician Goal (LTG) Pt will perform 10 reps sit to stand without UE support in 30 sec to reflect improved functional strength by 10/08/20 . 09/11/20: Purple ball between knees: 8 reps and so updated goals for 10 reps as she met the 8 reps originally set of the goal LTG Duration 4 weeks One Computer Field Technician Goal (LTG) Pt will perform progressive HEP with I including pelvic realignment, flexibility, breathing, core and LE strengthening and balance exercises to improve functional mobility by 10/08/20 . 10/11/20: Revised HEP: 6x/wk: balance exercise in corner, elias stretch and other stretches (divide up sitting and supine stretches); 3x/wk: wall squats with the ball, sitting band exercises, core progression exercises; as needed: rolling pin massage, pelvic realignment exercises, racquet ball massage LTG Duration 4 weeks Assessment Summary Assessment Revised HEP today and provided write-up for pt to use at home. Pt has trouble remembering some execises taught and provided more handouts for core exercises today. Unsure how often she is getting exercises done at home. This may be a barrier to improvement. Anticipate d/c next treatment date. Pt to go to [place] in two weeks. Physical Therapy Plan Frequency and Duration Frequency of Treatment 2x/Week Duration of Treatment 4 weeks Plan of Care Start Date 09/11/20 Plan of Care End Date 10/08/20 Therapeutic Interventions Therapeutic Interventions Aquatic Therapy,Balance Training,Canalithic Repositioning,Gait Training, Home Exercise Program,Joint Mobilizations,Manual Therapy, Neuromuscular Re-education, Patient/Caregiver Education, Self-Care/Home Management,Soft Tissue Mobilization,Taping, Therapeutic Activities, Therapeutic Exercises Modalities Cold Pack/Ice Massage,Hot Packs Next Visit Focus/Plan Next Note Type Discharge Summary
--- NOTE | 2020-10-08 10:51 | PT.OPDS ---
Current Diagnoses Other idiopathic scoliosis, site unspecified (10/06/20) Spondylosis without myelopathy or radiculopathy, lumbosacral region (10/06/20) Other symptoms and signs involving the musculoskeletal system (10/06/20) Visit Care Team Role Provider Type Baldev Colin MD Attending Provider Non-Staff Primary Care Provider Referring Provider Specialty: Internal Medicine Address: [address] [place] [address], [facility], [place], [place], [facility] Email: Visit Number Visit Number 14 Discharge Summary PT-OP-B Current Condition Start: 07/22/20 08:29 Freq: Status: Active Protocol: Document 07/23/20 09:01 MB (Rec: 07/23/20 09:12 MB [id number]) Current Condition History of Current Condition Onset Date 1 year leg weakness Current Complaints Leg weakness with sitting, trouble getting up, back discomfort History of Current Condition Pt reports that getting up off the toilet is difficult. She has trouble getting on and off the power boat. She has to use her hands to stand up d/t leg weakness. Pt has had PT in the past for her back but she did not con't with exercises. There is no reason for this, maybe just forgetting. She doesn't feel safe enough to bike outside and tries to walk but has weakness. Pt denies numbness and tingling in her legs. Pt reports 4-5/10 back across her LB. She reports sitting at her computer longer than 10 minutes is a problem. Pt reports that her last fall was two years ago. She broke her right forearm. She tripped over her 's shoes in the house. Prior Treatments and Tests PT in the past 10 years for back pain, MRI lumbar spine : moderate levoconvex scoliosis and multiple levels of lumbar spine degenerative change are seen Treatment Goals Patient/Caregiver Goals To increase leg strength and how to get off the floor if she falls, to relieve back pain PT-OP-C Subjective Start: 07/22/20 08:29 Freq: Status: Active Protocol: Document 10/06/20 10:31 MB (Rec: 10/06/20 11:09 MB [id number]) OP-PT Subjective Patient Comments Patient Comments Pt states that she has had a good weekend. PT-OP-G Mobility & Gait Start: 07/22/20 08:29 Freq: Status: Active Protocol: Document 07/23/20 09:01 MB (Rec: 07/23/20 11:15 MB [id number]) OP Gait Assessment Gait Gait Assistance Required: Independent Distance (Feet) 50 Able to Maintain Weight Bearing Status Yes During Gait Assistive Devices Assistive Device None Orthotic/Prosthetic Devices or Brace: No Gait Deviations General Gait Pattern Flexed Trunk,Narrow Based Gait Factors Limiting Gait Function Factors Limiting Gait Function Limited Range of Motion,Poor Balance Comments Gait Comments Pt presents with narrow SABRINA, spinal changes as noted in postural assessment below, decreased arm swing with gait PT-OP-J Posture/Palpation/Skin Start: 07/22/20 08:29 Freq: Status: Active Protocol: Document 07/23/20 09:01 MB (Rec: 07/23/20 11:15 MB [id number]) Posture Evaluation Comments Posture Comments This date, pt is unable to stand up from the chair without UE support Standing posture with shoes on : Dowager's hump, anterior tilt pelvis, right iliac crest mildly higher than the left, right breast lower than the left and pt does report remote history of some soft tissue removed on left breast, spinal curvature changes thoracic spine with convexity on the right making scapular position more elevated right compared to left, narrow SABRINA and B great toe valgus, greater on the right. PT-OP-K Range of Motion Start: 07/22/20 08:29 Freq: Status: Active Protocol: Document 07/23/20 09:01 MB (Rec: 07/23/20 11:15 MB [id number]) Wrist Goniometric Range of Motion ROM Limitations Comments Right wrist bony changes and pt reports old fracture and surgery PT-OP-M Strength Start: 07/22/20 08:29 Freq: Status: Active Protocol: Document 07/23/20 09:01 MB (Rec: 07/23/20 11:15 MB [id number]) Hip Strength Hip Manual Muscle Testing Left Flexion (L2) 4 Good Abduction 4 Good Adduction 3+ Fair+ Right Flexion (L2) 4 Good Abduction 4 Good Adduction 4 Good Knee Strength Knee Manual Muscle Testing Left Flexion (S2) 4 Good Extension (L3) 4 Good Right Flexion (S2) 4 Good Extension (L3) 4 Good Ankle/Foot Strength Ankle and Foot Manual Muscle Testing Left Dorsiflexion (L4) 5 Normal Inversion 5 Normal Eversion (S1) 5 Normal Right Dorsiflexion (L4) 5 Normal Inversion 5 Normal Eversion (S1) 5 Normal Toe Strength Toe Manual Muscle Testing Left Great Toe Extension 5 Normal Right Great Toe Extension 5 Normal PT-OP-T Assessment and Plan Start: 07/22/20 08:29 Freq: Status: Active Protocol: Document 10/08/20 10:48 MB (Rec: 10/08/20 10:51 MB [id number]) Physical Therapy Plan Discharge Physical Therapy Discharge Reasons Goals Met Discharge Comments Pt does not show up for appointment. When PT calls her , she thought that appointment was tomorrow. Per previous PT treatments, pt was close to meeting her goals and PT and pt have reviewed all of her exercises and she is ready for d/c. Will d/c PT.
== END 2020-10-08 11:17 | disposition home or self-care (01) ==
LOC: PHYS 10:30
PROVIDERS: PCP Internal Medicine; Referring Provider Internal Medicine; Visit Provider Internal Medicine
DX: M41.20 Other idiopathic scoliosis, site unspecified (principal); M47.817 Spondylosis without myelopathy or radiculopathy, lumbosacral region; R29.898 Other symptoms and signs involving the musculoskeletal system
CPT/HCPCS: 97110; 97116; 97140; 97161; 97530; 97535

== ENCOUNTER → 2020-12-26 11:13 | Outpatient (CLI) | payer MEDICARE, OTHER, SELFPAY ==
[2020-12-26 12:09] LABS: Appearance Urine UA CLOUDY; Bilirubin Urine UA NEGATIVE (NEGATIVE); Color Urine UA YELLOW; Glucose Urine UA NEGATIVE (Negative); Ketones Urine UA NEGATIVE (NEGATIVE); Leukocyte Esterase Urine UA 3+ (NEGATIVE); Nitrite Urine UA POSITIVE (Negative); Occult Blood Urine UA TRACE-LYSED (Negative); Protein Urine UA NEGATIVE (Negative); Specific Gravity Urine UA 1.015 (1.000-1.035); Urobilinogen Urine UA 0.2 E.U./dL (0.2)
[2020-12-26 12:19] LABS: Bacteria Urine Many (>30); RBC Urine 1-5/HPF (0-5/HPF); WBC Urine >100/HPF (0-5/HPF)
== END ==
PROVIDERS: PCP Internal Medicine; Referring Provider Internal Medicine; Visit Provider Internal Medicine
DX: R30.0 Dysuria (principal); R35.0 Frequency of micturition; N39.0 Urinary tract infection, site not specified
CPT/HCPCS: 81001; 87077; 87086; 87186

== ENCOUNTER → 2021-01-06 11:00 | Outpatient (CLI) | payer MEDICARE, OTHER, SELFPAY ==
--- NOTE | 2021-01-06 | DI.US.S_ITS ---
PROCEDURE: US RENAL COMPLETE INDICATIONS: RIGHT TENDERNESS/PYELONPHRITIS NOT IMPROVING WITH ANTIBIOTIC TECHNIQUE: Real-time scanning was performed of the kidneys and bladder, with image documentation. COMPARISON: Reference is made to the CT abdomen dated August 26, 2012. FINDINGS: Kidneys: Kidneys are normal in size. Right kidney measures 10.2 cm long; left kidney measures 10.8 cm long. Right renal cortical thickness is 1.5 cm; left renal cortical thickness is 1.2 cm. Renal cortical echotexture is normal. No hydronephrosis or nephrolithiasis. No suspicious solid mass lesions. Bladder: Pre-void bladder volume is 68 mL. Post-void residual is 8 mL. Pre-void images demonstrate no intraluminal masses or stones. On pre-void images, bilateral ureteral jets are noted with color Doppler interrogation. ( Miscellaneous: No free pelvic fluid. IMPRESSION: No significant abnormality. Dictated by: Moise Londono M.D. on 01/06/2021 at 12:52 Approved by: Moise Londono M.D. on 01/06/2021 at 12:56
== END ==
PROVIDERS: PCP Internal Medicine; Referring Provider Internal Medicine; Visit Provider Internal Medicine
DX: N12 Tubulo-interstitial nephritis, not specified as acute or chronic (principal)
CPT/HCPCS: 76770

== ENCOUNTER → 2021-01-07 16:12 | Outpatient (CLI) | payer MEDICARE, OTHER, SELFPAY ==
--- NOTE | 2021-01-07 16:14 | DI.MG.S_ITS ---
BILATERAL DIGITAL SCREENING MAMMOGRAM 3D/2D WITH CAD: 01/07/2021 CLINICAL: Routine screening. Comparison is made to exams dated: 01/07/2020 mammogram, 01/03/2019 mammogram, and 01/11/2018 mammogram - [facility]. The tissue of both breasts is heterogeneously dense. This may lower the sensitivity of mammography. Current study was also evaluated with a Computer Aided Detection (CAD) system. There are benign post operative findings in the left breast. No significant masses, calcifications, or other findings are seen in either breast. There has been no significant interval change. IMPRESSION: BENIGN There is no mammographic evidence of malignancy. A 1 year screening mammogram is recommended. This exam was interpreted at Station ID: [id number]. NOTE: For mammograms, a report in lay terms will be sent to the patient. Approximately 15% of breast malignancies will not be visualized mammographically. In the management of a palpable breast mass, a negative mammogram must not discourage biopsy of a clinically suspicious lesion. Electronically Signed By: Sandoval delacruz/nathaniel:01/07/2021 16:49:15 letter sent: Normal Exam ACR BI-RADS Category 2: Benign Finding(s) [id number]
== END ==
PROVIDERS: PCP Internal Medicine; Referring Provider Internal Medicine; Visit Provider Internal Medicine
DX: Z12.31 Encounter for screening mammogram for malignant neoplasm of breast (principal)
CPT/HCPCS: 77063; 77067

== ENCOUNTER → 2021-02-04 13:59 | Outpatient (CLI) | payer MEDICARE, OTHER, SELFPAY ==
--- NOTE | 2021-02-04 14:03 | DI.RAD.S_ITS ---
PROCEDURE: XR LUMBAR SPINE 6V W BENDING INDICATIONS: CHRONIC LOW BACK PAIN TECHNIQUE: 5 views of the lumbar spine acquired, including flexion and extension views. COMPARISON: [facility], , L-SPINE 2-3 VIEWS, 12/17/2011, 12:25. FINDINGS: Bones: No definite fracture identified although markedly suboptimal evaluation due to scoliosis and discogenic changes. Severe levoscoliosis of the lumbar spine. Multilevel degenerative endplate sclerosis and spurring. Diffuse facet arthropathy. Diffuse moderate to severe narrowing of the lumbar spine with relative sparing at L5-S1 and L4-L5. Grade 1 retrolisthesis of L1 on L2 and L2 on L3. Soft tissues: Overlying bowel gas pattern is normal. No suspicious soft tissue calcifications. Flexion/extension: No evidence of abnormal motion with dynamic flexion and extension lateral views. Suboptimal evaluation secondary to advanced spondylitic and scoliotic changes. IMPRESSION: Severe lumbar spondylosis and scoliosis as above. No interval change. No evidence of abnormal motion with dynamic flexion and extension lateral views. Of note, evaluation severely limited by advanced degenerative changes. Dictated by: Dorian Gutierrez M.D. on 02/04/2021 at 15:45 Approved by: Dorian Gutierrez M.D. on 02/04/2021 at 15:47
== END ==
PROVIDERS: PCP Internal Medicine; Referring Provider Internal Medicine; Visit Provider Internal Medicine
DX: M47.816 Spondylosis without myelopathy or radiculopathy, lumbar region (principal); M54.50 Low back pain, unspecified; M41.9 Scoliosis, unspecified; G89.29 Other chronic pain
CPT/HCPCS: 72114

== ENCOUNTER → 2021-04-27 15:53 | Outpatient (CLI) | payer MEDICARE, OTHER, SELFPAY ==
--- NOTE | 2021-04-27 | DI.MRI.S_ITS ---
PROCEDURE: MR LUMBAR SPINE WO CON INDICATIONS: Back Pain with scoliosis TECHNIQUE: Noncontrast sagittal T1 spin echo and T2 fast echo, sagittal STIR, axial T1 and T2 fast spin echo through the lumbar spine. In cases with scoliosis, additional coronal T2 fast spin echo may be performed. COMPARISON: [facility], MR, L-SPINE WITHOUT CONTRAST, 01/09/2013, 12:18. [facility], CR, XR LUMBAR SPINE 6V W BENDING, 02/04/2021, 14:15. [facility], MR, MR LUMBAR SPINE WO CON, 10/25/2019, 9:39. FINDINGS: Image quality: This examination is limited by involuntary motion artifact. Alignment and Curvature: There is moderate levoconvex scoliosis. Bone Marrow: Marrow is of normal overall signal. Scattered foci are seen, which are hyperintense on T1-weighted and T2-weighted imaging, which are most consistent with benign vertebral body hemangiomas. No acute vertebral body compression fractures. Spinal Cord: Conus medullaris terminates at the L1 level. Visualized cord demonstrates normal signal and size. Paraspinous Soft Tissues: No paravertebral masses. T12-L1: The disc height is well-preserved. Loss of disc signal is seen at this level. Minimal disc bulge is seen at this level. Mild to moderate facet hypertrophy is seen. There is moderate right-sided and no left-sided neural foraminal narrowing. No significant central canal narrowing is seen. No significant change from the prior. L1-L2: The disc height is well-preserved. Loss of disc signal is seen at this level. Mild disc bulge is seen. Bridging endplate osteophytes are seen on the right, as on series 2, image 6. Mild facet joint hypertrophy is seen. There is moderate right-sided and no left-sided neural foraminal narrowing. Minimal central canal narrowing is seen. Stable from the prior study. L2-L3: Moderate loss of disc height is seen. Loss of disc signal is seen. Moderate disc bulge is seen, which is eccentric to the right. Bridging endplate osteophytes are seen on the right side. Moderate facet joint hypertrophy is seen. There is [id number] right-sided and moderate left-sided neural foraminal narrowing. Moderate central canal narrowing is seen. When comparison is made with the prior images, these findings are similar. L3-L4: The disc height is well-preserved. Loss of disc signal is seen at this level. Mild to moderate disc bulge is seen. Moderate to prominent facet hypertrophy is seen. Associated hypertrophy of the ligamentum flavum can be seen. There is moderate to prominent left-sided and at least moderate right-sided neural foraminal narrowing. There is a degree of compression seen upon the exiting nerve roots. Moderate central canal narrowing is seen. When comparison is made with the prior images, these findings are similar. L4-L5: The disc height is well-preserved. Loss of disc signal is seen at this level. Moderate generalized disc bulge is seen. Moderate facet joint hypertrophy is seen. There is moderate to severe left-sided and at least moderate right-sided neural foraminal narrowing. A degree of compression can be seen upon the exiting L4 nerve roots, left worse than right. Minimal central canal narrowing is seen. When comparison is made with the prior images, these findings are similar. L5-S1: The disc height is well-preserved. Loss of disc signal is seen at this level. Mild generalized disc bulge is seen. There is [id number] right-sided and at least moderate left-sided facet hypertrophy. Minimal to mild neural foraminal narrowing can be seen on each side. No central canal narrowing is seen at this level. Stable from the prior study. IMPRESSION: Multiple levels of lumbar spine degenerative change are seen, which are not significantly progressed compared to 2020. Moderate levoconvex lumbar scoliosis is seen. Dictated by: Luan Mcmullen M.D. on 04/28/2021 at 10:27 Approved by: Luan Mcmullen M.D. on 04/28/2021 at 10:34
== END ==
PROVIDERS: PCP Internal Medicine; Referring Provider Orthopaedic Surgery Orthopaedic Surgery of the Spine; Visit Provider Orthopaedic Surgery Orthopaedic Surgery of the Spine
DX: M41.9 Scoliosis, unspecified (principal); M81.6 Localized osteoporosis [Lequesne]; M54.9 Dorsalgia, unspecified; Z78.0 Asymptomatic menopausal state
CPT/HCPCS: 72148; 77080

== ENCOUNTER → 2021-07-21 09:05 | Outpatient (CLI) | payer MEDICARE, OTHER, SELFPAY ==
[2021-07-21 09:39] LABS: Add Manual Diff / Slide Review NO; Basophils Absolute Auto 0 /uL (0-100); Basophils Percent Auto 1.1 % (0-2); Eosinophils Absolute Auto 100 /uL (0-450); Eosinophils Percent Auto 3.1 % (2-4); Hematocrit 34.1 % (36-46); Hemoglobin 10.8 g/dL (12.0-16.0); Lymphocytes Absolute Auto 1300 /uL (1100-4500); Lymphocytes Percent Auto 30.4 % (25-40); Mean Corpuscular HGB Conc 31.6 % (30-36); Mean Corpuscular Hemoglobin 24.9 PG (26-34); Mean Corpuscular Volume 78.6 fL (80-100); Monocytes Absolute Auto 300 /uL (0-900); Monocytes Percent Auto 7.1 % (3-14); Neutrophils Absolute Auto 2500 /uL (1500-7000); Neutrophils Percent Auto 58.3 % (50-75); Platelet Count 349 X10^3/uL (150-400); Red Blood Cell Count 4.33 X10^6/uL (4.0-5.2); Red Cell Distribution Width 16.6 % (11.6-14.8); White Blood Cell Count 4.2 X10^3/uL (4.5-11.0)
[2021-07-21 09:51] LABS: HEMOLYSIS < 15 (0-50); Iron 38 ug/dL (37-170); Lactate (Lactic Acid) 0.7 mmol/L (0.7-2.1)
[2021-07-21 09:58] LABS: Erythrocyte Sedimentation Rate 17 MM/HR (0-20)
[2021-07-21 10:02] LABS: Percent Iron Saturation 8 % (15-50); Total Iron Binding Capacity 482 ug/dL (265-497); Transferrin 387 mg/dL (206-381)
[2021-07-21 10:06] LABS: HEMOLYSIS < 15 (0-50)
[2021-07-21 10:09] LABS: T4 Total Thyroxine 9.78 ug/dL (5.5-11.0); T7 (Free Thyroxine Index) 3.09 (1.65-3.89); Triiodothryronine T3 Uptake 31.6 % (23.5-40.5)
[2021-07-21 10:14] LABS: Alanine Aminotransferase 16 IU/L (<35); Albumin 4.4 g/dL (3.5-5.0); Albumin Globulin Ratio 1.7 (1.0-2.8); Alkaline Phosphatase 78 U/L (38-126); Aspartate Aminotransferase 23 IU/L (14-36); BUN Creatinine Ratio 27.6 (6-22); Bilirubin Total 0.9 mg/dL (0.2-1.3); Blood Urea Nitrogen 16 mg/dL (7-17); Calcium 9.3 mg/dL (8.4-10.2); Carbon Dioxide 26 mmol/L (22-32); Chloride 108 mmol/L (98-107); Cholesterol 213 mg/dL (140-199); Estimated Glomerular Filt Rate > 60 mL/min (>60); Globulin 2.6 g/dL (1.7-4.1); Glucose 97 mg/dL (80-110); Phosphorous 4.1 mg/dL (2.8-4.1); Potassium 4.2 mmol/L (3.4-5.1); Sodium 140 mmol/L (137-145); Triglycerides 70 mg/dL (35-150); Uric Acid 3.2 mg/dL (2.5-6.2)
[2021-07-21 10:23] LABS: Thyroid Stimulating Hormone 2.04 uIU/mL (0.47-4.68)
[2021-07-21 10:32] LABS: Vitamin D 25 Hydroxy (D3) 50.1 ng/mL (30.0-100.0)
[2021-07-21 10:33] LABS: HDL Cholesterol 113 mg/dL (40-60); LDL Cholesterol Calculated 86 mg/dL (<100)
[2021-07-21 11:09] LABS: High Sensitivity CRP - Cardiac 0.5 mg/L (1.0-3.0)
[2021-07-21 11:18] LABS: Folate 13.1 ng/mL (2.76-20.0); Vitamin B12 341 pg/mL (239-931)
[2021-07-24 15:17] LABS: Chromogranin A, Serum 80.2 ng/mL (0.0-101.8)
== END ==
PROVIDERS: PCP Internal Medicine; Referring Provider Internal Medicine; Visit Provider Internal Medicine
DX: R53.83 Other fatigue (principal); D3A.00 Benign carcinoid tumor of unspecified site
CPT/HCPCS: 36415; 80053; 80061; 82248; 82306; 82607; 82746; 83540; 83550; 83605; 84100; 84436; 84443; 84479; 84550; 85025; 85651; 86140; 86316

== ENCOUNTER 2021-09-26 08:17 | Emergency (ER) | payer MEDICARE, OTHER, SELFPAY ==
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
--- NOTE | 2021-09-26 08:57 | DI.RAD.S_ITS ---
PROCEDURE: XR ANKLE RT MIN 3V INDICATIONS: pain swelling TECHNIQUE: 3 views of the ankle were acquired. COMPARISON: None. FINDINGS: Bones: Transverse fracture of the lateral malleolus with minimal displacement. The mortise is congruent. Ankle mortise is normally aligned. No suspicious bony lesions. Soft tissues: Soft tissue swelling over the lateral malleolus. Achilles tendon appears normal. IMPRESSION: Transverse fracture of the lateral malleolus with overlying soft tissue swelling. Dictated by: Howard Fofana M.D. on 09/26/2021 at 8:32 Approved by: Howard Fofana M.D. on 09/26/2021 at 8:33
--- NOTE | 2021-09-26 08:58 | DI.RAD.S_ITS ---
PROCEDURE: XR TIBIA FUBULA RT 2V INDICATIONS: fall pain TECHNIQUE: 2 views of the tibia and fibula were acquired. COMPARISON: None. FINDINGS: Bones: Transverse fracture of the lateral malleolus with minimal displacement. No other fracture of the tibia or fibula. No suspicious bony lesions. Soft tissues: No suspicious soft tissue calcifications or masses. IMPRESSION: Transverse fracture of the lateral malleolus with minimal displacement Dictated by: Howard Fofana M.D. on 09/26/2021 at 8:33 Approved by: Howard Fofana M.D. on 09/26/2021 at 8:34
[2021-09-26 09:03] VITALS: BP 160/76; PULSE 96; RESP 18; TEMP 36.1; O2SAT 97
[2021-09-26 10:36] VITALS: BP 146/70; PULSE 93; RESP 18; O2SAT 98
== END 2021-09-26 10:36 | disposition home or self-care (01) ==
PROVIDERS: Emergency Provider Emergency Medicine; PCP Internal Medicine
DX: S82.401A Unspecified fracture of shaft of right fibula, initial encounter for closed fracture (principal); W16.92XA Jumping or diving into unspecified water causing other injury, initial encounter
CPT/HCPCS: 73590; 73610; 99283

== ENCOUNTER → 2021-12-29 08:48 | Outpatient (CLI) | payer MEDICARE, OTHER, SELFPAY ==
--- NOTE | 2021-12-29 08:52 | DI.MRI.S_ITS ---
PROCEDURE: MR LUMBAR SPINE WO CON INDICATIONS: URGE INCONTINENCE/FATIGUE/CARCINOID/LOW BACK PAIN TECHNIQUE: Noncontrast sagittal T1 spin echo and T2 fast echo, sagittal STIR, and T2 fast spin echo through the lumbar spine. In cases with scoliosis, additional coronal T2 fast spin echo may be performed. COMPARISON: [facility], MR, MR LUMBAR SPINE WO CON, 04/27/2021, 16:37. [facility], CT, CT ABDOMEN PELVIS W CON, 12/29/2021, 10:42. [facility], MR, MR LUMBAR SPINE WO CON, 10/25/2019, 9:39. FINDINGS: Image quality: This examination is limited by involuntary motion artifact. Alignment and Curvature: Mild levoconvex scoliotic curvature is noted. No focal AP alignment abnormality is seen. Bone Marrow: Marrow is of normal overall signal. No acute vertebral body compression fractures. Spinal Cord: Conus medullaris terminates at the L1 level. Visualized cord demonstrates normal signal and size. Paraspinous Soft Tissues: No paravertebral masses. T12-L1: The disc height is well-preserved. Loss of disc signal is seen at this level. There is minimal disc bulge. Nywj-qi-hlmhqjqt facet hypertrophy can be seen. There is mild right-sided and no left-sided neural foraminal narrowing. No significant central canal narrowing is seen. When comparison is made with the prior images, these findings are similar. L1-L2: The disc height is well-preserved. Loss of disc signal is seen at this level. Mild to moderate disc bulge is seen. Moderate facet joint hypertrophy is seen. There is moderate right-sided and no left-sided neural foraminal narrowing. No significant central canal narrowing is seen. No significant change from the prior. L2-L3: Mild loss of disc height is seen. Loss of disc signal is seen. Bridging endplate osteophytes are seen. Moderate disc bulge is seen, which is eccentric to the right. Moderate facet joint hypertrophy is seen. There is moderate right-sided and ehzx-jc-qecxiqac left-sided neural foraminal narrowing. Mild central canal narrowing is seen. When comparison is made with the prior images, these findings are similar. L3-L4: The disc height is well-preserved. Loss of disc signal is seen at this level. Mild to moderate disc bulge is seen. Moderate facet joint hypertrophy is seen. There is moderate right-sided and moderate to severe left-sided neural foraminal narrowing. There is a degree of compression seen upon the exiting left L3 nerve root. Mild to moderate central canal narrowing is seen. When comparison is made with the prior images, these findings are similar. L4-L5: Mnpu-tb-zrbwoaio loss of disc height is seen on the left side. Reactive marrow endplate changes are seen, which are hyperintense on T1-weighted and T2-weighted imaging and most consistent with fatty metaplasia (Modic type II changes). Mild to moderate disc bulge is seen, which is eccentric to the left. Moderate facet joint hypertrophy is seen. There is at least moderate right-sided and moderate to severe left-sided neural foraminal narrowing. There is a degree of compression seen upon the exiting nerve roots. Minimal central canal narrowing is seen. No significant change from the prior. L5-S1: The disc height is well-preserved. Loss of disc signal is seen at this level. Mild generalized disc bulge is seen. There is mild right-sided and moderate left-sided facet hypertrophy. No significant central canal narrowing or neural foraminal narrowing can be seen. Stable from the prior study. IMPRESSION: Multiple levels of lumbar spine degenerative change are seen, which are considered to be stable compared to prior lumbar MRI dated 04/27/2021. Levoconvex lumbar scoliosis is seen. Dictated by: Luan Mcmullen M.D. on 12/29/2021 at 13:32 Approved by: Luan Mcmullen M.D. on 12/29/2021 at 13:37
--- NOTE | 2021-12-29 11:09 | DI.CT.S_ITS ---
PROCEDURE: CT ABDOMEN PELVIS W CON INDICATIONS: URGE INCONTINENCE/FATIGUE/CARCINOID/LOW BACK PAIN TECHNIQUE: After the administration of oral and IV contrast, axial sections were acquired from the lung bases to the pubic symphysis. Coronal and sagittal reformats were performed. For radiation dose reduction, the following was used: automated exposure control, adjustment of mA and/or kV according to patient size. COMPARISON: [facility], CT, ABDOMEN/PELVIS WITH CONTRAST, 08/26/2012, 6:19. FINDINGS: Image quality: Excellent. Lung bases: Unremarkable. Heart: No significant findings. ABDOMEN: Liver: 6 mm hypodensity involving anterior segment of right hepatic lobe is again seen, stable since 2012 and is consistent with a benign process such as hepatic cyst. Gallbladder: Gallbladder is surgically absent. Biliary ducts: Unremarkable. Pancreas: Unremarkable. Spleen: Unremarkable. Adrenal Glands: Unremarkable. Kidneys and Ureters: No stones or hydronephrosis. No hydroureter. Tiny left renal cortical cyst is seen and measures 5 mm in size. Stomach and Bowel: Large hiatal hernia is noted. Questionable distal gastric wall thickening is seen with narrowing of the gastric pyloric lumen. There is no bowel obstruction. No gross gastric or small bowel wall thickening. Appendix is not definitely identified. Surgical clips are noted in right lower quadrant abdomen. Mild fecal stasis throughout the colon is seen. No gross colonic wall thickening or mesenteric fat stranding. Moderate sigmoid diverticulosis is also seen. No abscess collection. Peritoneum: No abnormal intraperitoneal fluid. No free air. Ventral Wall: No hernia. Abdominal Nodes: No retroperitoneal or mesenteric adenopathy by size criteria. Vessels: Aorta and inferior vena cava are normal in size. PELVIS: Pelvic Organs: Unremarkable. Bladder: Unremarkable. Pelvic Nodes: No enlarged lymph nodes. Miscellaneous: No inguinal hernias are seen. Bones: No suspicious bony lesion. No acute vertebral body compression fracture. Degenerative disc disease throughout lower thoracic spine and lumbar spine is seen. Mild to moderate S shaped scoliosis of thoracolumbar spine is also noted. IMPRESSION: 1. Large hiatal hernia. Thickened distal gastric wall which may represent mild gastritis. 2. No bowel obstruction or abnormal bowel wall thickening. Sigmoid diverticulosis without evidence of acute diverticulitis. No abscess collection. No free fluid or free air. 3. Scoliosis of thoracic and lumbar spine with degenerative disc disease throughout spine. No acute vertebral body compression fracture. Dictated by: Cristóbal Vasquez M.D. on 12/29/2021 at 14:53 Approved by: Cristóbal Vasquez M.D. on 12/29/2021 at 15:33
== END ==
PROVIDERS: PCP Internal Medicine; Referring Provider Internal Medicine; Visit Provider Internal Medicine
DX: M47.816 Spondylosis without myelopathy or radiculopathy, lumbar region (principal); M47.817 Spondylosis without myelopathy or radiculopathy, lumbosacral region; M51.34 Other intervertebral disc degeneration, thoracic region; M51.36 Other intervertebral disc degeneration, lumbar region; M41.85 Other forms of scoliosis, thoracolumbar region; K44.9 Diaphragmatic hernia without obstruction or gangrene; K57.30 Diverticulosis of large intestine without perforation or abscess without bleeding; D3A.00 Benign carcinoid tumor of unspecified site; S34.3XXA Injury of cauda equina, initial encounter; T83.718A Erosion of other implanted mesh to organ or tissue, initial encounter; N39.41 Urge incontinence; R53.83 Other fatigue; M54.50 Low back pain, unspecified; G89.29 Other chronic pain
CPT/HCPCS: 72148; 74177; Q9967

== ENCOUNTER → 2022-01-19 11:24 | Outpatient (CLI) | payer MEDICARE, OTHER, SELFPAY ==
--- NOTE | 2022-01-19 | DI.MG.S_ITS ---
BILATERAL DIGITAL SCREENING MAMMOGRAM 3D/2D WITH CAD: 01/19/2022 CLINICAL: Routine screening. Comparison is made to exams dated: 01/07/2021 mammogram, 01/07/2020 mammogram, 01/03/2019 mammogram, and 01/03/2019 mammogram - [facility]. Both breasts are heterogeneously dense, which may obscure small masses (category c / 51-75% glandular tissue). Current study was also evaluated with a Computer Aided Detection (CAD) system. There are benign post operative findings in the left breast. No significant masses, calcifications, or other findings are seen in either breast. There has been no significant interval change. IMPRESSION: BENIGN There is no mammographic evidence of malignancy. A 1 year screening mammogram is recommended. Based on the Tyrer Cuzick model (a risk assessment model) the patient's lifetime risk is 4.2% and her 10 year risk is 0.0%. According to the ACR, ACS, and NCCN guidelines, an annual breast MRI exam along with mammogram is recommended if the patient's lifetime risk is 20% or greater. This exam was interpreted at Station ID: [id number]. NOTE: For mammograms, a report in lay terms will be sent to the patient. Approximately 15% of breast malignancies will not be visualized mammographically. In the management of a palpable breast mass, a negative mammogram must not discourage biopsy of a clinically suspicious lesion. Electronically Signed By: Papi cabrera/nathaniel:01/19/2022 13:36:02 letter sent: Normal Exam ACR BI-RADS Category 2: Benign Finding(s) 3342F
== END ==
PROVIDERS: PCP Internal Medicine; Referring Provider Internal Medicine; Visit Provider Internal Medicine
DX: Z12.31 Encounter for screening mammogram for malignant neoplasm of breast (principal)
CPT/HCPCS: 77063; 77067

== ENCOUNTER → 2022-04-15 17:08 | Outpatient (CLI) | payer MEDICARE, OTHER, SELFPAY ==
[2022-04-15 19:52] LABS: Appearance Urine UA CLEAR; Bilirubin Urine UA NEGATIVE (NEGATIVE); Color Urine UA YELLOW; Glucose Urine UA NEGATIVE (Negative); Ketones Urine UA NEGATIVE (NEGATIVE); Leukocyte Esterase Urine UA NEGATIVE (NEGATIVE); Nitrite Urine UA NEGATIVE (Negative); Occult Blood Urine UA NEGATIVE (Negative); Protein Urine UA NEGATIVE (Negative); Specific Gravity Urine UA 1.025 (1.000-1.035); Urobilinogen Urine UA 0.2 E.U./dL (0.2)
[2022-04-15 20:10] LABS: Amorphous Sediment Urine 1+; Bacteria Urine Occasional (0-1); Culture Indicated Urine Specimen Cultured; Mucus Urine 1+ (Negative); RBC Urine None Seen (0-5/HPF); Squamous Epithelial Cell Urine 1-5 /HPF (0-5/HPF); WBC Urine 5-10/HPF (0-5/HPF)
== END ==
PROVIDERS: PCP Internal Medicine; Referring Provider Internal Medicine; Visit Provider Internal Medicine
DX: R30.0 Dysuria (principal)
CPT/HCPCS: 81001; 87086

== ENCOUNTER → 2022-06-24 08:48 | Outpatient (CLI) | payer MEDICARE, OTHER, SELFPAY ==
[2022-06-24 10:01] LABS: Add Manual Diff / Slide Review NO; Basophils Absolute Auto 0 /uL (0-100); Basophils Percent Auto 0.7 % (0-2); Eosinophils Absolute Auto 100 /uL (0-450); Eosinophils Percent Auto 3.2 % (2-4); Hematocrit 41.3 % (36-46); Hemoglobin 13.8 g/dL (12.0-16.0); Lymphocytes Absolute Auto 1300 /uL (1100-4500); Mean Corpuscular HGB Conc 33.5 % (30-36); Mean Corpuscular Hemoglobin 29.8 PG (26-34); Mean Corpuscular Volume 88.8 fL (80-100); Monocytes Absolute Auto 400 /uL (0-900); Monocytes Percent Auto 8.5 % (3-14); Neutrophils Absolute Auto 2500 /uL (1500-7000); Neutrophils Percent Auto 57.6 % (50-75); Platelet Count 232 X10^3/uL (150-400); Red Blood Cell Count 4.65 X10^6/uL (4.0-5.2); Red Cell Distribution Width 14.6 % (11.6-14.8); White Blood Cell Count 4.4 X10^3/uL (4.5-11.0)
[2022-06-24 10:21] LABS: HEMOLYSIS < 15 (0-50); Iron 96 ug/dL (37-170)
[2022-06-24 10:31] LABS: Percent Iron Saturation 27 % (15-50); Total Iron Binding Capacity 358 ug/dL (265-497); Transferrin 280 mg/dL (206-381)
[2022-06-24 11:27] LABS: Folate 7.5 ng/mL (2.76-20.0); Vitamin B12 595 pg/mL (239-931)
== END ==
PROVIDERS: PCP Internal Medicine; Referring Provider Internal Medicine; Visit Provider Internal Medicine
DX: D64.9 Anemia, unspecified (principal); D50.9 Iron deficiency anemia, unspecified
CPT/HCPCS: 36415; 82607; 82746; 83540; 83550; 84443; 85025

== ENCOUNTER → 2022-07-27 11:03 | Outpatient (CLI) | payer MEDICARE, OTHER, SELFPAY ==
--- NOTE | 2022-07-27 | DI.RAD.S_ITS ---
PROCEDURE: XR CHEST 2V INDICATIONS: COUGH TECHNIQUE: 2 views of the chest were acquired. COMPARISON: [facility], , CHEST 2 VIEW, 01/09/2010, 10:04. FINDINGS: Surgical changes and devices: None. Lungs and pleura: There is mild pulmonary vascular congestion. Left basilar atelectasis is seen. No focal infiltrate. No pleural effusions or pneumothorax. Mediastinum: Mediastinal contours are normal. Heart size is normal. Moderate size hiatal hernia is noted. Bones and chest wall: No suspicious bony abnormalities. Soft tissues appear unremarkable. IMPRESSION: Moderate hiatal hernia with adjacent left basilar atelectasis. Mild pulmonary vascular congestion. No definite focal infiltrate. No pleural effusion or pneumothorax. Dictated by: Cristóbal Vasquez M.D. on 07/27/2022 at 13:05 Approved by: Cristóbal Vasquez M.D. on 07/27/2022 at 13:05
== END ==
PROVIDERS: PCP Internal Medicine; Referring Provider Internal Medicine; Visit Provider Internal Medicine
DX: R05.3 Chronic cough (principal); U09.9 Post COVID-19 condition, unspecified; J98.11 Atelectasis; R09.89 Other specified symptoms and signs involving the circulatory and respiratory systems; K44.9 Diaphragmatic hernia without obstruction or gangrene
CPT/HCPCS: 71046

== ENCOUNTER → 2022-09-13 11:15 | Outpatient (CLI) | payer MEDICARE, OTHER, SELFPAY ==
[2022-09-13 16:41] LABS: Appearance Urine UA CLOUDY; Bilirubin Urine UA 1+ (NEGATIVE); Color Urine UA YELLOW; Glucose Urine UA NEGATIVE (Negative); Ketones Urine UA NEGATIVE (NEGATIVE); Leukocyte Esterase Urine UA 2+ (NEGATIVE); Nitrite Urine UA POSITIVE (Negative); Occult Blood Urine UA TRACE-INTACT (Negative); Protein Urine UA 1+ (Negative); Specific Gravity Urine UA >=1.030 (1.000-1.035)
[2022-09-13 16:42] LABS: pH Urine UA 5.5 (4.5-8.0)
[2022-09-13 17:27] LABS: Bacteria Urine Many (>30); Ictotest Urine Negative (Negative); RBC Urine None Seen (0-5/HPF); Squamous Epithelial Cell Urine 1-5 /HPF (0-5/HPF); Transitional Epi Cells Urine 1-5/HPF (0-5/HPF); WBC Urine >100/HPF (0-5/HPF)
[2022-09-13 17:28] LABS: Culture Indicated Urine Specimen Cultured
== END ==
PROVIDERS: PCP Internal Medicine; Referring Provider Internal Medicine; Visit Provider Internal Medicine
DX: R35.0 Frequency of micturition (principal); N39.41 Urge incontinence
CPT/HCPCS: 81001; 87086; 87186

== ENCOUNTER → 2022-09-20 10:13 | Outpatient (CLI) | payer MEDICARE, OTHER, SELFPAY ==
[2022-09-20 11:04] LABS: Add Manual Diff / Slide Review NO; Basophils Absolute Auto 100 /uL (0-100); Basophils Percent Auto 1.1 % (0-2); Eosinophils Absolute Auto 100 /uL (0-450); Eosinophils Percent Auto 2.7 % (2-4); Hematocrit 37.9 % (36-46); Hemoglobin 12.6 g/dL (12.0-16.0); Lymphocytes Absolute Auto 900 /uL (1100-4500); Lymphocytes Percent Auto 16.9 % (25-40); Mean Corpuscular HGB Conc 33.4 % (30-36); Mean Corpuscular Hemoglobin 29.2 PG (26-34); Mean Corpuscular Volume 87.5 fL (80-100); Monocytes Absolute Auto 400 /uL (0-900); Neutrophils Absolute Auto 3900 /uL (1500-7000); Neutrophils Percent Auto 72.3 % (50-75); Platelet Count 310 X10^3/uL (150-400); Red Blood Cell Count 4.33 X10^6/uL (4.0-5.2); Red Cell Distribution Width 13.9 % (11.6-14.8); White Blood Cell Count 5.4 X10^3/uL (4.5-11.0)
[2022-09-20 12:05] LABS: HEMOLYSIS < 15 (0-50); Iron 50 ug/dL (37-170)
[2022-09-20 12:19] LABS: Percent Iron Saturation 12 % (15-50); Total Iron Binding Capacity 430 ug/dL (265-497); Transferrin 322 mg/dL (206-381)
== END ==
PROVIDERS: PCP Internal Medicine; Referring Provider Internal Medicine; Visit Provider Internal Medicine
DX: R53.83 Other fatigue (principal); D64.9 Anemia, unspecified; D50.9 Iron deficiency anemia, unspecified
CPT/HCPCS: 36415; 83540; 83550; 85025

== ENCOUNTER → 2022-10-14 15:32 | Outpatient (CLI) | payer MEDICARE, OTHER, SELFPAY ==
[2022-10-14 16:10] LABS: Appearance Urine UA CLEAR; Bilirubin Urine UA NEGATIVE (NEGATIVE); Color Urine UA YELLOW; Glucose Urine UA NEGATIVE (Negative); Ketones Urine UA 1+ (NEGATIVE); Leukocyte Esterase Urine UA 3+ (NEGATIVE); Nitrite Urine UA POSITIVE (Negative); Occult Blood Urine UA NEGATIVE (Negative); Protein Urine UA NEGATIVE (Negative)
[2022-10-14 16:27] LABS: Bacteria Urine Many (>30); Culture Indicated Urine Specimen Cultured; RBC Urine None Seen (0-5/HPF); Squamous Epithelial Cell Urine None Seen (0-5/HPF); WBC Urine 5-10/HPF (0-5/HPF)
== END ==
PROVIDERS: PCP Internal Medicine; Referring Provider Urology; Visit Provider Urology
DX: B37.9 Candidiasis, unspecified (principal)
CPT/HCPCS: 81001; 87077; 87086; 87186

== ENCOUNTER → 2022-11-11 13:45 | Outpatient (CLI) | payer MEDICARE, OTHER, SELFPAY ==
--- NOTE | 2022-11-11 | DI.ECHO.S_ITS ---
[place] [facility]---------+ [facility] +---------+ : : [address] : : : : [id number] : : : : Phone: [phone]+ Echocardiogram Report + + :Name: ESDRAS LAMBERT Study Date: 11/11/2022 Height: 62 in : :[facility] ReadingLocation: Weight: 155 lb : : Gender: Female BSA: 1.7 m2 : :: 1945 Age: 77 yrs BP: 126/83 mmHg: :Reason For Study: COUGH, FATIGUE : :Ordering Physician: LEONARDO SCANLON Performed By: Monserrat Lucia : :Referring: LEONARDO SCANLON : + + Interpretation Summary Normal sinus rhythm with wide QRS complexes. Normal LV size and wall thickness. Normal wall motion and LV systolic function. Ejection fraction 65-70%. Mild left atrial enlargement; otherwise normal chamber sizes. No significant valvular abnormalities. No prior study available for comparison. Procedure: A two-dimensional transthoracic echocardiogram with color flow and Doppler was performed. The study quality was technically adequate. There is no prior echocardiogram noted for this patient. The patient was in sinus rhythm with heart rates between 66-85 bpm during the exam. Left Ventricle: The left ventricle is normal in size and wall thickness. The ejection fraction is estimated to be 65-70%. Right Ventricle: The right ventricle is normal in size and function. Atria: The left atrium is mildly dilated. Right atrial size is normal. There is no Doppler evidence for an interatrial shunt. Mitral Valve: The mitral valve is normal in structure and function. There is no mitral regurgitation noted. Aortic Valve: There is mild aortic valve sclerosis. The aortic valve is trileaflet. The aortic valve opens well. There is no aortic valve stenosis. No aortic regurgitation is present. Tricuspid Valve: The tricuspid valve is normal in structure and function. There is trace tricuspid regurgitation. Pulmonic Valve: The pulmonic valve leaflets are thin and pliable; valve motion is normal. There is mild pulmonic regurgitation. Great Vessels: The aortic root is normal size. The dimensions of the ascending aorta are normal. The IVC is of normal diameter and collapses greater than 50% with a sniff. This suggests a low right atrial pressure of 3 mm Hg. Pericardium/ Pleura There is no pericardial effusion. There is no pleural effusion. MMode/2D Measurements & Calculations LVIDd: 4.0 cm LVOT diam: 1.9 cm LVIDs: 2.4 cm Ao root diam: 2.7 cm FS: 40.2 % asc Aorta Diam: 3.0 cm IVSd: 0.73 cm Ao Arch Diam (Prox Trans): 2.6 cm LVPWd: 1.0 cm LV nagel. diameter/BSA (cm/m^2): 2.3 LV sys. diameter/BSA (cm/m^2): 1.4 LA A2 area: 21.5 cm2 RA long axis: 4.4 cm LA A4 area: 17.5 cm2 RA area: 12.0 cm2 LA length (vol): 5.3 cm RA vol: 28.0 ml LA vol: 60.7 ml RA : 16.4 ml/m2 LA vol index: 35.4 ml/m2 IVC diam: 1.5 cm RVD1 (basal): 2.7 cm RVD2 (mid): 1.8 cm TAPSE: 1.8 cm Doppler Measurements & Calculations Ao V2 max: 174.0 cm/sec LVOT Max Dirk: 144.5 cm/sec Ao V2 mean: 109.7 cm/sec LV V1 max P.4 mmHg Ao max P.1 mmHg LV V1 VTI: 26.0 cm Ao mean P.4 mmHg MIGUEL ANGEL(I,D): 2.5 cm2 Ao V2 VTI: 29.2 cm MIGUEL ANGEL(V,D): 2.3 cm2 sev ratio: 0.89 MIGUEL ANGEL indexed to BSA (cm^2/m^2): 1.4 MV E max dirk: 78.0 cm/sec PA V2 max: 114.8 cm/sec MV A max dirk: 86.5 cm/sec PA V2 mean: 84.0 cm/sec MV E/A: 0.90 PA mean P.1 mmHg Med Peak E' Dirk: 4.2 cm/sec PA pr(Accel): 41.3 mmHg E/E' med: 18.8 Lat Peak E' Dirk: 8.3 cm/sec E/E' lat: 9.4 E/e' average: 14.1 MV dec time: 0.28 sec SV(LVOT): 72.1 ml Electronically signed by: Renée Monroe M.D. on Reading Physician:11/11/2022 06:19 PM
== END ==
PROVIDERS: PCP Internal Medicine; Referring Provider Internal Medicine; Visit Provider Internal Medicine
DX: R05.9 Cough, unspecified (principal); R53.83 Other fatigue; R09.89 Other specified symptoms and signs involving the circulatory and respiratory systems; I37.1 Nonrheumatic pulmonary valve insufficiency
CPT/HCPCS: 93306

== ENCOUNTER → 2023-03-09 14:26 | Outpatient (CLI) | payer MEDICARE, OTHER, SELFPAY ==
--- NOTE | 2023-03-09 | DI.MG.S_ITS ---
BILATERAL DIGITAL SCREENING MAMMOGRAM 3D/2D WITH CAD: 03/09/2023 CLINICAL: Routine screening. Comparison is made to exams dated: 01/19/2022 mammogram, 01/07/2021 mammogram, and 01/07/2020 mammogram - [facility]. Both breasts are heterogeneously dense, which may obscure small masses (category c / 51-75% glandular tissue). Current study was also evaluated with a Computer Aided Detection (CAD) system. There are benign post operative findings in the left breast. No significant masses, calcifications, or other findings are seen in either breast. There has been no significant interval change. IMPRESSION: BENIGN There is no mammographic evidence of malignancy. A 1 year screening mammogram is recommended. Based on the Tyrer Cuzick model (a risk assessment model) the patient's lifetime risk is 3.7% and her 10 year risk is 0.0%. According to the ACR, ACS, and NCCN guidelines, an annual breast MRI exam along with mammogram is recommended if the patient's lifetime risk is 20% or greater. This exam was interpreted at Station ID: [id number]. NOTE: For mammograms, a report in lay terms will be sent to the patient. Approximately 15% of breast malignancies will not be visualized mammographically. In the management of a palpable breast mass, a negative mammogram must not discourage biopsy of a clinically suspicious lesion. Electronically Signed By: Echo hendrix/nathaniel:03/09/2023 16:17:00 letter sent: Normal Exam ACR BI-RADS Category 2: Benign Finding(s) 3342F
== END ==
PROVIDERS: PCP Internal Medicine; Referring Provider Internal Medicine; Visit Provider Internal Medicine
DX: Z12.31 Encounter for screening mammogram for malignant neoplasm of breast (principal)
CPT/HCPCS: 77063; 77067

== ENCOUNTER → 2023-06-10 09:03 | Outpatient (CLI) | payer MEDICARE, OTHER, SELFPAY ==
[2023-06-10 09:35] LABS: Add Manual Diff / Slide Review NO; Basophils Absolute Auto 100 /uL (0-100); Basophils Percent Auto 1.1 % (0-2); Eosinophils Absolute Auto 100 /uL (0-450); Eosinophils Percent Auto 2.1 % (2-4); Hemoglobin 14.9 g/dL (12.0-16.0); Lymphocytes Absolute Auto 1500 /uL (1100-4500); Lymphocytes Percent Auto 31.8 % (25-40); Mean Corpuscular HGB Conc 33.9 % (30-36); Mean Corpuscular Hemoglobin 30.8 PG (26-34); Mean Corpuscular Volume 90.8 fL (80-100); Monocytes Absolute Auto 300 /uL (0-900); Monocytes Percent Auto 7.1 % (3-14); Neutrophils Absolute Auto 2700 /uL (1500-7000); Neutrophils Percent Auto 57.9 % (50-75); Platelet Count 226 X10^3/uL (150-400); Red Blood Cell Count 4.84 X10^6/uL (4.0-5.2); Red Cell Distribution Width 14.2 % (11.6-14.8); White Blood Cell Count 4.6 X10^3/uL (4.5-11.0)
[2023-06-10 09:57] LABS: HEMOLYSIS < 15 (0-50); Iron 122 ug/dL (37-170)
[2023-06-10 10:00] LABS: Alanine Aminotransferase 17 IU/L (<35); Albumin 4.2 g/dL (3.5-5.0); Albumin Globulin Ratio 1.6 (1.0-2.8); Alkaline Phosphatase 74 U/L (38-126); Aspartate Aminotransferase 22 IU/L (14-36); BUN Creatinine Ratio 26.2 (6-22); Blood Urea Nitrogen 16 mg/dL (7-17); Calcium 9.6 mg/dL (8.4-10.2); Carbon Dioxide 26 mmol/L (22-32); Chloride 109 mmol/L (98-107); Estimated Glomerular Filt Rate > 60 mL/min (>60); Globulin 2.7 g/dL (1.7-4.1); Glucose 107 mg/dL (80-110); HEMOLYSIS < 15 (0-50); Potassium 4.2 mmol/L (3.4-5.1); Sodium 141 mmol/L (137-145); Total Protein 6.9 g/dL (6.3-8.2)
[2023-06-10 10:11] LABS: Percent Iron Saturation 39 % (15-50); Total Iron Binding Capacity 312 ug/dL (265-497); Transferrin 268 mg/dL (206-381)
[2023-06-10 10:28] LABS: Cortisol AM (Before 10AM) 18.1 ug/dL (4.46-22.7)
[2023-06-10 10:30] LABS: Vitamin D 25 Hydroxy (D3) 34.9 ng/mL (30.0-100.0)
[2023-06-10 10:48] LABS: Vitamin B12 723 pg/mL (239-931)
== END ==
PROVIDERS: PCP Internal Medicine; Referring Provider Internal Medicine; Visit Provider Internal Medicine
DX: D64.9 Anemia, unspecified (principal); E43 Unspecified severe protein-calorie malnutrition; R53.83 Other fatigue
CPT/HCPCS: 36415; 80053; 82306; 82533; 82607; 83540; 83550; 84443; 85025

== ENCOUNTER → 2023-07-28 06:53 | Outpatient (CLI) | payer MEDICARE, OTHER, SELFPAY ==
[2023-07-28 08:36] LABS: Appearance Urine UA CLEAR; Bilirubin Urine UA NEGATIVE (NEGATIVE); Color Urine UA YELLOW; Glucose Urine UA NEGATIVE (Negative); Ketones Urine UA NEGATIVE (NEGATIVE); Leukocyte Esterase Urine UA NEGATIVE (NEGATIVE); Nitrite Urine UA NEGATIVE (Negative); Occult Blood Urine UA NEGATIVE (Negative); Protein Urine UA NEGATIVE (Negative); Specific Gravity Urine UA >=1.030 (1.000-1.035); Urobilinogen Urine UA 0.2 E.U./dL (0.2)
[2023-07-28 08:46] LABS: pH Urine UA 5.5 (4.5-8.0)
[2023-07-28 10:33] LABS: Bacteria Urine Occasional (0-1); Calcium Oxalate Crystals Urine Occasional; Culture Indicated Urine Cult Not Indicated; RBC Urine 0-1/HPF (0-5/HPF); Squamous Epithelial Cell Urine 10-30 /HPF (0-5/HPF); Urine Volume Low Vol <10mL (spun); WBC Urine 0-1/HPF (0-5/HPF)
== END ==
PROVIDERS: PCP Internal Medicine; Referring Provider Urology; Visit Provider Urology
DX: R39.89 Other symptoms and signs involving the genitourinary system (principal)
CPT/HCPCS: 81001

== ENCOUNTER → 2023-12-19 08:19 | Outpatient (CLI) | payer MEDICARE, OTHER, SELFPAY ==
[2023-12-19 09:08] LABS: Add Manual Diff / Slide Review NO; Basophils Absolute Auto 0 /uL (0-100); Basophils Percent Auto 0.7 % (0-2); Eosinophils Absolute Auto 100 /uL (0-450); Eosinophils Percent Auto 2.3 % (2-4); Hematocrit 40.5 % (36-46); Hemoglobin 13.5 g/dL (12.0-16.0); Lymphocytes Absolute Auto 1500 /uL (1100-4500); Lymphocytes Percent Auto 30.2 % (25-40); Mean Corpuscular HGB Conc 33.4 % (30-36); Mean Corpuscular Hemoglobin 30.5 PG (26-34); Mean Corpuscular Volume 91.3 fL (80-100); Monocytes Absolute Auto 300 /uL (0-900); Monocytes Percent Auto 6.8 % (3-14); Neutrophils Absolute Auto 3000 /uL (1500-7000); Platelet Count 219 X10^3/uL (150-400); Red Blood Cell Count 4.43 X10^6/uL (4.0-5.2); Red Cell Distribution Width 13.9 % (11.6-14.8)
[2023-12-19 09:24] LABS: HEMOLYSIS < 15 (0-50); Iron 113 ug/dL (37-170)
[2023-12-19 09:29] LABS: Alanine Aminotransferase 16 IU/L (<35); Albumin 3.9 g/dL (3.5-5.0); Albumin Globulin Ratio 1.7 (1.0-2.8); Alkaline Phosphatase 75 U/L (38-126); Aspartate Aminotransferase 19 IU/L (14-36); BUN Creatinine Ratio 24.5 (6-22); Bilirubin Total 0.9 mg/dL (0.2-1.3); Blood Urea Nitrogen 13 mg/dL (7-17); Calcium 9.5 mg/dL (8.4-10.2); Carbon Dioxide 25 mmol/L (22-32); Chloride 108 mmol/L (98-107); Estimated Glomerular Filt Rate > 60 mL/min (>60); Globulin 2.3 g/dL (1.7-4.1); Glucose 93 mg/dL (80-110); HEMOLYSIS < 15 (0-50); Potassium 4.1 mmol/L (3.4-5.1); Sodium 138 mmol/L (137-145); Total Protein 6.2 g/dL (6.3-8.2)
[2023-12-19 09:33] LABS: High Sensitivity CRP - Cardiac 0.8 mg/L (1.0-3.0)
[2023-12-19 09:37] LABS: Percent Iron Saturation 38 % (15-50); Total Iron Binding Capacity 299 ug/dL (265-497); Transferrin 239 mg/dL (206-381)
[2023-12-19 09:42] LABS: Vitamin D 25 Hydroxy (D3) 28.6 ng/mL (30.0-100.0)
[2023-12-19 09:57] LABS: TSH w/ Reflex to FT4 2.88 uIU/mL (0.47-4.68)
[2023-12-19 10:15] LABS: Vitamin B12 384 pg/mL (239-931)
[2023-12-20 03:14] LABS: Apolipoprotein B 80 mg/dL (<90)
== END ==
PROVIDERS: PCP Internal Medicine; Referring Provider Internal Medicine; Visit Provider Internal Medicine
DX: E78.2 Mixed hyperlipidemia (principal); I20.89 Other forms of angina pectoris; R53.83 Other fatigue; D3A.00 Benign carcinoid tumor of unspecified site
CPT/HCPCS: 36415; 80053; 80061; 82172; 82306; 82607; 83540; 83550; 83695; 83704; 84443; 85025; 86140; 86316

== ENCOUNTER → 2024-01-16 07:12 | Outpatient (CLI) | payer MEDICARE, OTHER, SELFPAY ==
--- NOTE | 2024-01-17 20:00 | DI.NM.S_ITS ---
DATE OF SERVICE: 01/16/2024 PHARMACOLOGICAL PERFUSION STUDY INDICATION: Angina equivalent, fatigue, hyperlipidemia. RADIOPHARMACEUTICAL: 23.8 mCi technetium-99m Myoview IV was injected at stress and 24.6 millicurie technetium-99m Myoview IV was injected at rest. CARDIAC STRESS: The patient underwent IV Lexiscan perfusion study under the supervision of an attending staff using standard intravenous Lexiscan protocol. The patient remained hemodynamically stable. Baseline rhythm was sinus with right bundle branch block. During stress, no convincing ischemic changes seen. Rare PVCs. No ventricular tachycardia. Minimal dyspnea. No chest discomfort. RAW DATA: Adequate myocardial uptake. GATED STUDY: Stress LV ejection fraction 89% and resting 85% without any obvious wall motion abnormalities. Resting end-diastolic volume 75 mL. TID ratio 0.97 which is within normal limits. Lung/heart ratio 0.45 which is at the upper limit of normal. MYOCARDIAL PERFUSION SCAN: Stress supine, resting supine, and stress prone images revealed normal myocardial perfusion. CONCLUSION: This is a normal myocardial perfusion study without any convincing ischemia or infarction. Baseline rhythm sinus with right bundle branch block. No convincing inducible ischemic EKG changes. Stress left ventricular ejection fraction 89%. Overall low-risk myocardial perfusion scan. Nikki Hernandez - JOSE E/juliana/JUD doc#: [id number]/job#: [id number] dd: 01/17/2024 16:38:00 dt: 01/17/2024 19:32:00 DICTATING /COPIES TO: Letitia Gutierres MD COPIES MNE: HUSSEIN;
== END ==
LOC: NUCM 07:12
PROVIDERS: PCP Internal Medicine; Referring Provider Internal Medicine; Visit Provider Internal Medicine
DX: I20.89 Other forms of angina pectoris (principal); R53.83 Other fatigue; E78.2 Mixed hyperlipidemia
CPT/HCPCS: 78452; 93017; A9502; J2785

== ENCOUNTER → 2024-01-17 09:46 | Outpatient (CLI) | payer MEDICARE, OTHER, SELFPAY ==
--- NOTE | 2024-01-17 09:49 | DI.RAD.S_ITS ---
PROCEDURE: XR PEL MIN 3V INDICATIONS: DEVISE TECHNIQUE: 1 view(s) of the pelvis acquired. COMPARISON: None. FINDINGS: Bones: No fractures or dislocations. No suspicious bony lesions. Soft tissues: Visualized bowel gas pattern is normal. No suspicious soft tissue calcifications. invoice control clerk is present, tip of which projects over the right pelvis. IMPRESSION: No acute bony abnormality. Dictated by: Zohreh Beck M.D. on 01/17/2024 at 14:54 Approved by: Zohreh Beck M.D. on 01/17/2024 at 14:54
== END ==
PROVIDERS: PCP Internal Medicine; Referring Provider Urology; Visit Provider Urology
DX: Z96.82 Presence of neurostimulator (principal)
CPT/HCPCS: 72190

== ENCOUNTER → 2024-07-12 10:25 | Outpatient (CLI) | payer MEDICARE, OTHER, SELFPAY ==
[2024-07-12 11:00] LABS: Hematocrit 39.8 % (36-46); Hemoglobin 13.2 g/dL (12.0-16.0); Mean Corpuscular HGB Conc 33.2 % (30-36); Mean Corpuscular Hemoglobin 30.1 PG (26-34); Mean Corpuscular Volume 90.6 fL (80-100); Platelet Count 227 X10^3/uL (150-400); Red Cell Distribution Width 14.1 % (11.6-14.8); White Blood Cell Count 6.1 X10^3/uL (4.5-11.0)
[2024-07-12 11:11] LABS: HEMOLYSIS < 15 (0-50); Iron 71 ug/dL (37-170)
[2024-07-12 11:15] LABS: Alanine Aminotransferase 22 IU/L (<35); Albumin 4.2 g/dL (3.5-5.0); Albumin Globulin Ratio 1.8 (1.0-2.8); Alkaline Phosphatase 72 U/L (38-126); Aspartate Aminotransferase 22 IU/L (14-36); Bilirubin Total 1.2 mg/dL (0.2-1.3); Blood Urea Nitrogen 18 mg/dL (7-17); Calcium 9.4 mg/dL (8.4-10.2); Carbon Dioxide 25 mmol/L (22-32); Chloride 106 mmol/L (98-107); Cholesterol 221 mg/dL (140-199); Estimated Glomerular Filt Rate > 60 mL/min (>60); Globulin 2.4 g/dL (1.7-4.1); Glucose 98 mg/dL (80-110); HEMOLYSIS < 15 (0-50); Potassium 4.3 mmol/L (3.4-5.1); Sodium 138 mmol/L (137-145); Total Protein 6.6 g/dL (6.3-8.2); Triglycerides 71 mg/dL (35-150)
[2024-07-12 11:22] LABS: HDL Cholesterol 120 mg/dL (40-60); LDL Cholesterol Calculated 87 mg/dL (<100)
[2024-07-12 11:23] LABS: Percent Iron Saturation 20 % (15-50); Total Iron Binding Capacity 362 ug/dL (265-497); Transferrin 308 mg/dL (206-381)
[2024-07-12 11:43] LABS: TSH w/ Reflex to FT4 1.28 uIU/mL (0.47-4.68)
[2024-07-12 11:49] LABS: Ferritin 9 ng/mL (11-264)
[2024-07-12 12:19] LABS: Folate 6.7 ng/mL (2.76-20.0); Vitamin B12 262 pg/mL (239-931)
== END ==
PROVIDERS: PCP Internal Medicine; Referring Provider Family Medicine; Visit Provider Family Medicine
DX: E78.5 Hyperlipidemia, unspecified (principal); E61.1 Iron deficiency; R53.83 Other fatigue
CPT/HCPCS: 36415; 80053; 80061; 82607; 82728; 82746; 83540; 83550; 84443; 85027

== ENCOUNTER → 2024-07-31 14:59 | Outpatient (CLI) | payer MEDICARE, OTHER, SELFPAY ==
[2024-07-31 17:32] LABS: Ferritin 7 ng/mL (11-264)
== END ==
PROVIDERS: PCP Internal Medicine; Referring Provider Family Medicine; Visit Provider Family Medicine
DX: E61.1 Iron deficiency (principal); R53.83 Other fatigue
CPT/HCPCS: 36415; 82728

== ENCOUNTER → 2025-01-07 10:13 | Outpatient (CLI) | payer MEDICARE, OTHER, SELFPAY | PROVIDERS: PCP Family Medicine; Visit Provider Urology | DX: N32.81 Overactive bladder (principal); N39.46 Mixed incontinence | CPT/HCPCS: 87077; 87086 ==

== ENCOUNTER → 2025-01-11 10:10 | Outpatient (CLI) | payer MEDICARE, OTHER, SELFPAY ==
[2025-01-11 11:58] LABS: HEMOLYSIS < 15 (0-50); Iron 100 ug/dL (37-170)
[2025-01-11 12:09] LABS: Percent Iron Saturation 30 % (15-50); Total Iron Binding Capacity 335 ug/dL (265-497); Transferrin 298 mg/dL (206-381)
[2025-01-11 12:39] LABS: Ferritin 35 ng/mL (11-264)
== END ==
LOC: LAB 10:12
PROVIDERS: PCP Family Medicine; Referring Provider Family Medicine; Visit Provider Family Medicine
DX: E61.1 Iron deficiency (principal)
CPT/HCPCS: 36415; 82728; 83540; 83550